=== PATIENT | female | born 1935 | race Caucasian/White ===

== ENCOUNTER 2024-09-07 14:14 | Inpatient (IN) | payer MEDICARE, MEDICAID, SELFPAY ==
--- NOTE | 2024-09-07 | ECG_ITS ---
Test Reason : qtc prolongation Blood Pressure : */* mmHG Vent. Rate : 80 BPM Atrial Rate : 80 BPM P-R Int : 144 ms QRS Dur : 88 ms QT Int : 412 ms P-R-T Axes : 45 27 28 degrees QTcB Int : 475 ms Normal sinus rhythm Normal ECG No previous ECGs available Referred By: Joana Strickland Electronically Signed By: LISA WOODY MD
[2024-09-07 14:46] VITALS: BP 177/77; PULSE 89; RESP 20; TEMP 36.2; O2SAT 95
--- OUTSIDE RECORDS SUMMARY | 2024-09-07 15:35 | XMS_ITS | Patient Health Record ---
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 Name Role Phone KASSIEVETTE ORR Primary Care Provider Naresh Gerber Jr Unavailable [phone] ALLERGIES Allergen (clinical drug ingredient) Drug/Non Drug Allergy documented on EMR Reaction Allergy Type Onset Date Status losartan Losartan Potassium Unknown Drug Allergy Active sumatriptan Imitrex (uncoded) Unknown Allergy Active lactulose Lactulose (uncoded) Unknown Allergy Active Bee venom (uncoded) Unknown Allergy Active REASON FOR REFERRAL No Information MEDICATIONS Medication SIG (Take, Route, Frequency, Duration) Notes Start Date End Date Status Zocor Active SEROquel Active Bengay Moist Heat Therapy Reg Active APAP Active Vitamin D3 Active LORazepam Active Toprol XL Active Tylenol Active Myrbetriq Active rOPINIRole HCl Activ e Depakote Active Artificial Tear Acti ve Lisinopril Active Gabapentin Active Amitriptyline HCl Ac tive oxyBUTYnin Active Colace Active IMMUNIZATIONS Vaccine Route Administration Date Status Comme nts Influenza Unknown 05/09/2020 Administered SOCIAL HISTORY Tobacco Use: Social History Observation Description Date Details (start date - stop date) Current Smoker NA - NA Sex Assigned At : Social History Observation Description Sex Assigned At Unknown Tobacco Use/Smoking Question Answer Notes Patient is a current smoker How often do you smoke cigarettes? every day How many cigarettes a day do you smoke? 6-10 How soon after you wake up do you smoke your fir st cigarette? within 5 minutes Are you interested in quitting? Not ready to scout t Alcohol Screen Question Answer Notes Did you have a drink containing alcohol in the p ast year? No Points 0 Interpretation Negative PROBLEMS Problem Type ICD Code Onset Dates Problem Status W/U Status Risk SNOMED Code Notes Problem Diarrhea, unspecified type (R19.7) Active confirmed [id number] PLAN OF TREATMENT No Information Insurance Providers Payer Name Payer Address Payer Phone Subscriber Number Group Number Insured Name Patient Relationship to Insured Coverage Start Date Coverage End Date MEDICARE OF [place] [address] [place] [address] [id number] VIVIAN MULTANI Self - patient is the insured MEDICAID OF [facility] [facility] [address] [place] [phone] [id number] VIVIAN MULTANI Self - patient is the insured MEDICAL (GENERAL) HISTORY Medical History History ICD Code hypertension bipolar disorder depression anxiety hx of substance abuse - opiates urinary tract infection cataracts restless leg syndrome breast cancer - Left Breast hearing loss urinary incontinence hx of migraine headaches hx of colon polyps constipation back pain - lower back dementia (the patient denies this and all other listed medical problems except hypertension and breast cancer) Surgical History Surgery Date(Month/Year) left mastectomy
--- NOTE | 2024-09-07 16:57 | PC.ADMIT ---
Addendum entered and electronically signed by Renee Bailey RN 09/07/24 17:58: Placed on 5min safety checks unlocked bathroom upon arrival to unit. Original Note: This is the 1st admission for this 89 y.o. woman to [facility]. Referred by ARCHITECTURAL INTERN Crisis with Dx Bipolar D/O with Psychosis, Hx Dx Dementia. Medical issues include: HTN, Hyperlipidemia, Hx hip repacement, Hx left mastectomy. Resides at [facility]. HCP invoked by daughter prior to admission. Nurse to nurse done with [facility]. Arrived on unit at 1430 via ambulance on Sect 12A, Section 12B signed by Dr Amin. Skin check done upon arrival to unit with 2 staff present. Confusion noted during interactions.Multiple negative statements made by pt towards staff/patients. Denies SI/HI, denies AH/VH. Uncooperative with admission assessment, asking this justowriter operator to answer same questions. Difficult to redirect. Uncooperative with standing/transfers, requiring assistance of 2 staff to transfer to wheelchair. Med list obtained from [facility] and [facility]. Admission orders received from Dr Amin. Additional orders will be reviewed with Dr Cruz. Daughter, Luna, who is HCP called to notify of admission. Daughter Luna in contact with daughter, Ce, during call. Luna reports pt smokes currently 5-6 cigarettes daily and had been smoking 10 cigarettes with good weather. Ce reports possible hx hallucinations/nightmares with use of nicotine patch. Both daughters would like low dose of nicotine patch started as they feel pt will withdraw and pt will become irritable. Irritability noted at present time. Dr Saez notified. Precipitating factors to admission: resident of [facility] since January 2024. Reportedly has intermittent mood disorder symptoms per children. Became paranoid,delusional at rehab and was checked for UTI which was negative. Depakote level was low at 14.2.
--- NOTE | 2024-09-07 17:15 | P.CONHOSP_ITS ---
History of Present Illness Data of Consult Service Date: 09/07/24 Primary Care Provider: None Physician HPI Reason for consult: Admission H&P Pt is an 89-year-old female with a PMH significant for?HTN, HLD, restless leg syndrome, nicotine dependence, and bipolar disorder with psychotic features who is admitted to [facility] for hallucinating and agitation per SNF staff. Medical consult for admission H&P. Pt appears confused, alert and oriented to self only at time of interview and exam. Pt?is difficult to redirect and does not answer most questions especially concerning HPI or PMH. Pt adamantly refuses physical examination, stating, get your hands off of me. 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 Review of Systems Review of Systems: Yes Unobtainable due to mental status [facility] Medical History (Updated 09/07/24 @ 17:58 by HANK Mortensen) Bipolar disorder with psychotic features Restless leg syndrome HDL deficiency HTN (hypertension) Social History Household Members: None Housing: Halfway Do you presently have visiting nurse or other home services: No Patient Tobacco Use Status: Former Tobacco user Tobacco use type: Cigarette Smoked in Last 30 Days: No e-Cigarette/Vaping Use: Never Used Patient Interested in Nicotine Replacement: No Patient Given Instructions on How to Stop Smoking: No Second Hand Smoke Exposure: No Use of substances other than those prescribed or required for medical reasons: No Currently Displaying Signs/Symptoms of Drug Intoxication Withdrawal: No Any prior treatment program specific to substance use: No (Residing in extended care facility prior) Do you feel safe in your current relationship?: No Current Relationship Is there a partner from a previous relationship who is making you feel unsafe now?: No Are you made to feel afraid or neglected: No Advance Directives: No Advance Directives Information Provided: Yes Do you have a plan to hurt others: No Plan Recently lost weight without trying: No Eating poorly because of decreased appetite: No Nutrition Risks: No Nutritional Risk Patient : No : No Poor oral hygiene: No Meds Allergies Allergy/AdvReac Type Severity Reaction Status Date / Time No Known Allergies Allergy Verified 09/07/24 15:15 Active Medications: Current Medications Acetaminophen (Acetaminophen 325 Mg Tablet) 650 mg PO Q6H PRN PRN Reason: Headache/Pain, Scale 1-10 Al Hydroxide/Mg Hydroxide (Magnesium Hydrox/Alum Hydrox 30 Ml Oral.Susp) 30 ml PO Q6H PRN PRN Reason: Heartburn/Nausea Magnesium Hydroxide (Milk Of Magnesia 30 Ml Oral.Susp) 30 ml PO DAILY PRN PRN Reason: Constipation Trazodone HCl (Trazodone Hcl 50 Mg Tablet) 50 mg PO BEDTIME MRX1 PRN PRN Reason: Insomnia Physical Exam Vital Signs and Narrative: Vital Signs: Last Vital Signs Temp 97.2 F 09/07/24 14:46 Pulse 89 09/07/24 14:46 Resp 20 09/07/24 14:46 BP 177/77 H 09/07/24 14:46 Pulse Ox 95 09/07/24 14:46 O2 Del Method Room Air 09/07/24 14:46 Pt refused physical examination Assessment and Plan (1) Medical clearance for psychiatric admission: Status: Acute Plan Pt is an 89-year-old female with a PMH significant for?HTN, HLD, restless leg syndrome, nicotine dependence, and bipolar disorder with psychotic features who is admitted to [facility] for hallucinating and agitation per SNF staff. Medical consult for admission H&P. Mood disorder Plan as per Psychiatry HTN Continue lisinopril, amlodipine, metoprolol, hydralazine and hydrochlorothiazide HLD Continue statin Restless leg syndrome Continue allopurinol, gabapentin Overactive bladder Continue oxybutynin Thank you for allowing us to participate in the care of this patient. Signing off at this time. Please re-consult if any acute complaints or issues arise.
[2024-09-07 20:10] LABS: Alanine Aminotransferase 32 U/L (0-31); Albumin Level 4.3 g/dL (3.5-5.0); Alkaline Phosphatase 84 U/L (39-117); Anion Gap 17 (12-20); Aspartate Amino Transferase 45 U/L (5-31); Bilirubin Total 0.3 mg/dL (0.0-1.0); Blood Urea Nitrogen 30 mg/dL (9-16); Calcium 9.6 mg/dL (8.4-10.2); Carbon Dioxide 22 mmol/L (22-29); Chloride 107 mmol/L (96-108); Estimated Glomerular Filt Rate 38; Glucose Random 169 mg/dL (60-115); Potassium 3.6 mmol/L (3.3-5.1); Sodium 142 mmol/L (135-145); Total Protein 7.9 g/dL (6.5-8.0)
[2024-09-07 20:18] VITALS: BMI 19.8
[2024-09-07 20:36] VITALS: BP 192/92
[2024-09-07] MEDS: hydrALAZINE HCl 25 MG TABLET PO (20:36)
[2024-09-07] MEDS: Amitriptyline HCl 10 MG TABLET 30 MG PO (20:36)
[2024-09-07] MEDS: Atorvastatin Calcium 10 MG TABLET PO (20:37)
[2024-09-07] MEDS: Gabapentin 100 MG CAPSULE 200 MG PO (20:37)
[2024-09-07] MEDS: LORazepam 0.5 MG TABLET PO (20:37)
[2024-09-07] MEDS: Acetaminophen 325 MG TABLET 975 MG PO (20:37)
[2024-09-07] MEDS: Divalproex Sodium 250 MG TABLET.DR PO (20:37)
[2024-09-07 20:55] VITALS: BP 192/92; PULSE 84; RESP 17; TEMP 37.1; O2SAT 97
[2024-09-07] MEDS: QUEtiapine Fumarate 200 MG TABLET PO (20:55)
[2024-09-08 08:00] VITALS: BP 147/66; PULSE 76; RESP 18; TEMP 36.2; O2SAT 94
--- NOTE | 2024-09-08 08:47 | P.HPPS_ITS ---
HPI Date of Service: 09/08/24 Chief Complaint: BIPOLAR 1 DISORDER, UNSPECIFIED ANXIETY DISORDER Sources of Information: patient interviewed, chart reviewed and crisis/core team assessment reviewed HPI Subjective Notes: [facility] Healthcare Proxy: Yes Past Psychiatric History: The patient carries a diagnosis of bipolar disorder with several prior admissions the patient is a very poor historian unable to provide details but apparently she has a lifelong history of mental illness. Medical Evaluation Reviewed: Yes [facility] Medical History Bipolar disorder with psychotic features Restless leg syndrome HDL deficiency HTN (hypertension) Family History: Denies Social History: The patient is a resident of [facility] with [facility] behavioral unit. Substance History: Denies Trauma History: Denies Diagnostics Vital Signs (24Hr): Vital Signs - 24 hr 09/07/24 14:46 09/07/24 20:36 09/07/24 20:55 Temperature 97.2 F 98.8 F Pulse Rate 89 84 Respiratory Rate 20 17 Blood Pressure 177/77 H 192/92 H 192/92 H Pulse Oximetry 95 97 Oxygen Delivery Method Room Air Room Air BMI result Body Mass Index 19.8 Labs 09/07/24 19:28 Labs: Laboratory Results - last 48 hr 09/07/24 19:28 Sodium 142 Potassium 3.6 Chloride 107 Carbon Dioxide 22 Anion Gap 17 BUN 30 H Creatinine 1.32 Estim Creat Clear Calc TNP Estimated GFR 38 Random Glucose 169 H Calcium 9.6 Total Bilirubin 0.3 AST 45 H ALT 32 H Alkaline Phosphatase 84 Total Protein 7.9 Albumin 4.3 Meds/Allergies Meds Home Medications ?Medication ?Instructions ?Recorded ?Confirmed ?Type cholecalciferol (vitamin D3) 5,000 units PO 1XD 09/07/24 09/07/24 History ropinirole 1 mg tablet 1 mg PO 1XD 09/07/24 09/07/24 History Allergies Allergies Allergy/AdvReac Type Severity Reaction Status Date / Time No Known Allergies Allergy Verified 09/07/24 15:15 Mental Status Exam Mental Status Exam Patient Appearance: Appropriate Patient Orientation: Person Level of Consciousness: Awake Patient Behavior: Guarded and Passive Mood Description: Withdrawn Affect Description: Labile Patient Cognition Impaired: Yes Ability to Follow Directions: Good Speech Pattern: Impoverished and Rapid Hallucinations: None Delusions: Ideas of Reference Thought Process: Racing and Illogical Thought Content: positive for [place], positive for Poverty of Content and positive for Thought Blocking Judgement: Poor Assessment & Plan Assessment & Plan (1) Bipolar disorder: Status: Acute Code(s): F31.9 - Bipolar disorder, unspecified (2) Dementia: Status: Acute Code(s): F03.90 - Unspecified dementia, unspecified severity, without behavioral disturbance, psychotic disturbance, mood disturbance, and anxiety Plan The patient is an elderly female with a past history of bipolar disorder who was brought to the emergency room of [facility] for worsening of psychosis and disorganized behavior. She was medically cleared and transferring to this facility for continuation of care. Plan 1. Gather more collateral information, the patient is a very poor historian. 2. 5 minute checks for the 1st 24 hours. 3. Continue on Seroquel 200 mg p.o. b.i.d. as a mood stabilizer/antipsychotic treatment. 4. Regular blood work and follow-up with Medicine. 5. Reassessment with results Patient educated on: diagnosis Informed Consent: further education needed Reason for continued inpatient stay Substantial Risk for: inability to function, rapid decompensation and med/psych decompensation Statement Statement: I have reviewed the history and physical and performed a pertinent examination on my patient. No changes have occurred unless specified. If the History and Physical was not performed prior to admission, the Hospitalist's service will be consulted for completing the admission physical. Time Spent With Patient Time: Total time managing care of this patient today __45__ minutes.
[2024-09-08] MEDS: Artificial Tears 15 ML DROPS 1 DROP EYE-BOTH (08:54)
[2024-09-08 08:58] VITALS: BP 147/66; PULSE 76
[2024-09-08] MEDS: Gabapentin 100 MG CAPSULE 200 MG PO (08:58)
[2024-09-08] MEDS: Cholecalciferol (Vitamin D3) 25 MCG TABLET 125 MCG PO (08:58)
[2024-09-08] MEDS: QUEtiapine Fumarate 200 MG TABLET PO (08:58)
[2024-09-08] MEDS: Metoprolol Succinate ER 100 MG TAB.ER.24H 200 MG PO (08:58)
[2024-09-08] MEDS: Acetaminophen 325 MG TABLET 975 MG PO (08:58)
[2024-09-08] MEDS: rOPINIRole HCL 1 MG TABLET PO (08:58)
[2024-09-08] MEDS: Docusate Sodium 100 MG CAPSULE PO (08:59)
[2024-09-08] MEDS: Lactase TABLET 2 TAB PO (08:59)
[2024-09-08 09:00] VITALS: BP 147/66
[2024-09-08] MEDS: hydroCHLOROthiazide 12.5 MG TABLET PO (09:00)
[2024-09-08] MEDS: lisinopriL 40 MG TABLET PO (09:00)
[2024-09-08] MEDS: LORazepam 0.5 MG TABLET PO (09:00)
[2024-09-08] MEDS: oxyBUTYnin chloride ER 5 MG TAB.ER.24 10 MG PO (09:00)
[2024-09-08 09:01] VITALS: BP 147/66
[2024-09-08] MEDS: hydrALAZINE HCl 25 MG TABLET PO (09:01)
[2024-09-08] MEDS: amLODIPine Besylate 10 MG TABLET PO (09:01)
[2024-09-08] MEDS: Nicotine 7 MG PATCH.TD24 TRANSDERMA (09:05)
[2024-09-08 10:13] LABS: Estimated Average Glucose 105 mg/dL; Hemoglobin A1C 106.5863 umol/L; Hemoglobin A1c % 5.3 % (<6.0); Total Hemoglobin (HGBA1C) 3073.9921 umol/L
[2024-09-08 10:44] LABS: Vitamin B12 192 pg/mL (200-900)
[2024-09-08 10:52] LABS: Glucose, Whole Blood 119 mg/dL (60-115)
--- NOTE | 2024-09-08 12:10 | PC.NURSE ---
At 8AM pt was alert, oriented to self. BP 147/66, P 76, T 97.2, O2sat 94% on RA. No SOB or respiratory distress noted. Pt was compliant with am meds. About 10:30 am pt was in her w/c in a milieu, responsive to verbal stimuli. Eyes closed, drowsy. Shortly after pt was intermittently responsive, then not responsive to verbal stimuli or chest rub. Rapid Response was called, BP re-check for BP 49/29, P 55. BS 119. After work up by Rapid response pt was transferred to the ICU.
--- NOTE | 2024-09-08 12:12 | PM.PSYDC ---
DS: Providers Provider Date of Service: 09/08/24 Date of admission: 09/07/24 14:14 Date of discharge: 09/08/24 Primary care physician: None Physician Consults: 09/07/24 15:16 Consult to Hospitalist Routine Comment: Consulting Provider: [facility] Hospitalists Reason For Exam: medical H&P DS: Diagnosis Discharge Diagnosis (1) Medical clearance for psychiatric admission: Status: Acute DS: Medications Discharge Medications Home Medications: Home Medications ?Medication ?Instructions ?Recorded ?Confirmed cholecalciferol (vitamin D3) 5,000 units PO 1XD 09/07/24 09/07/24 ropinirole 1 mg tablet 1 mg PO 1XD 09/07/24 09/07/24 Previous Rx's ?Medication ?Instructions ?Recorded atorvastatin 10 mg tablet 10 mg PO BEDTIME #0 tabs 09/08/24 gabapentin 100 mg capsule 200 mg (2 x 100 mg) PO TID #0 caps 09/08/24 peg [id number] 1 1 drp ophthalmic (eye) TID #0 mL 09/08/24 %-0.2 %-0.2 % eye drops (Artificial Tears ([id number])) Mental Status Exam Mental Status Exam Narrative: The patient had been sober us, unresponsive a code was called and she was transferred to the ICU right away. Mental status unable to assess due to acute the emergency [place] Data Data Completed and Pending Completed studies during hospitalization [Text1]: 09/07/24 09/08/24 09/08/24 19:28 09:43 10:48 Sodium 142 Potassium 3.6 Chloride 107 Carbon Dioxide 22 Anion Gap 17 BUN 30 H Creatinine 1.32 Estim Creat Clear Calc TNP Estimated GFR 38 POC Glucose 119 H Random Glucose 169 H Estimat Average Glucose 105 Hemoglobin A1c % 5.3 Calcium 9.6 Total Bilirubin 0.3 AST 45 H ALT 32 H Alkaline Phosphatase 84 Total Protein 7.9 Albumin 4.3 Vitamin B12 192 L DS: Summary Hospital Course Hospital Course: The patient was admitted the day before, in less than 24 hours her condition worsen it and a code was called, she was transferred to the ICU. Please see the HPI of the admission of medicine for further details. Time spent discussing smoking cessation with patient: 3 to 10 minutes Status at Discharge Cognitive/behavioral status at discharge: Impaired Functional status at discharge: independent ambulation Overall status at discharge: patient is not back to baseline Time Spent with Patient Time attestation: Total time managing care of this patient today __30__ minutes. Time spent: Less than 30 minutes Discharge Plan Discharge Anticipated Discharge Date/Time: 09/08/24 12:00 Patient Disposition: Xfer [facility] Discharge Diagnosis: Major neurocognitive Disorder Bipolar disorder Referrals: Physician,None [Primary Care Provider] - 1 Week Discharge Medications: New atorvastatin 10 mg Tablet 10 mg PO BEDTIME Qty: 0 0RF gabapentin 100 mg Capsule 200 mg PO TID Qty: 0 0RF Artificial Tears([id number]) 1-0.2-0.2 % Drops 1 drp ophthalmic (eye) TID Qty: 0 0RF Continued ropinirole 1 mg tablet 1 mg PO 1XD cholecalciferol (vitamin D3) capsule 5,000 units PO 1XD Discontinued divalproex 250 mg tablet,delayed release (DR/EC) 250 mg PO BEDTIME hydralazine 25 mg tablet 25 mg PO 3XD amitriptyline 10 mg tablet 30 mg PO BEDTIME amlodipine 10 mg tablet 10 mg PO DAILY oxybutynin chloride 10 mg tablet extended release 24hr 10 mg PO DAILY metoprolol succinate 200 mg tablet extended release 24 hr 200 mg PO 1XD quetiapine 200 mg tablet 200 mg PO 2XD lorazepam 0.5 mg tablet 0.5 mg PO TID lactase 9,000 unit Tablet 9,000 unit PO TID Rx Instructions: administer with meals and/or snacks simvastatin 20 mg tablet 20 mg PO BEDTIME hydrochlorothiazide 25 mg tablet 12.5 mg PO 1XD gabapentin 100 mg capsule 200 mg PO TID lisinopril 40 mg tablet 40 mg PO DAILY Artificial Tears (cmc) 1 % Drops 1 drp OPHTHALMIC (EYE) TID Colace capsule 100 mg PO 1XD Tylenol tablet 1,000 mg PO TID Discharge Orders: Discharge Order (Routine); Ordered 09/08/24 Ordered By: Joana Strickland Diet: Advance to usual diet Activity on Discharge: As tolerated Stand Alone Forms: Patient Portal Discharge page Print Language: Czech Care Plan Goals: transfer to ICU Health Concerns: transfer to ICU Plan of Treatment: transfer to ICU Assessment: transfer to ICU
== END 2024-09-08 10:50 | disposition short-term general hospital (02) | DRG 885 ==
PROVIDERS: Social Worker; Admitting Provider Psychiatry & Neurology Psychiatry; Visit Provider Psychiatry & Neurology Psychiatry
DX: F31.9 Bipolar disorder, unspecified (principal); G25.81 Restless legs syndrome; I10 Essential (primary) hypertension; E78.5 Hyperlipidemia, unspecified; N32.81 Overactive bladder; F03.90 Unspecified dementia, unspecified severity, without behavioral disturbance, psychotic disturbance, mood disturbance, and anxiety; F17.210 Nicotine dependence, cigarettes, uncomplicated; Z71.6 Tobacco abuse counseling; Z79.899 Other long term (current) drug therapy
CPT/HCPCS: 36415; 80053; 82607; 82947; 83036; 93005

== ENCOUNTER 2024-09-07 14:14 | Outpatient (BNV) | payer MEDICARE, MEDICAID, SELFPAY | END 2024-09-07 20:07 | PROVIDERS: Admitting Provider Psychiatry & Neurology Psychiatry; Visit Provider Internal Medicine Cardiovascular Disease | DX: I45.81 Long QT syndrome (principal) | CPT/HCPCS: 93010 ==

== ENCOUNTER → 2024-09-07 14:14 | Outpatient (BNV) | payer MEDICARE, MEDICAID, SELFPAY | PROVIDERS: Admitting Provider Psychiatry & Neurology Psychiatry; Visit Provider Psychiatry & Neurology Psychiatry | DX: F31.9 Bipolar disorder, unspecified (principal); F03.90 Unspecified dementia, unspecified severity, without behavioral disturbance, psychotic disturbance, mood disturbance, and anxiety | CPT/HCPCS: 99239; 99499 ==

== ENCOUNTER → 2024-09-07 14:14 | Outpatient (BNV) | payer MEDICARE, MEDICAID, SELFPAY | PROVIDERS: Admitting Provider Psychiatry & Neurology Psychiatry; Visit Provider Student in an Organized Health Care Education/Training Program | DX: Z00.8 Encounter for other general examination (principal) | CPT/HCPCS: 99429 ==

== ENCOUNTER 2024-09-08 12:52 | Outpatient (BNV) | payer MEDICARE, MEDICAID, SELFPAY | END 2024-09-08 13:28 | PROVIDERS: Admitting Provider Internal Medicine Critical Care Medicine; Visit Provider Internal Medicine Cardiovascular Disease | DX: R94.31 Abnormal electrocardiogram [ECG] [EKG] (principal); R07.9 Chest pain, unspecified | CPT/HCPCS: 93010 ==

== ENCOUNTER 2024-09-08 12:52 | Outpatient (BNV) | payer MEDICARE, MEDICAID, SELFPAY | END 2024-09-09 10:34 | PROVIDERS: Admitting Provider Internal Medicine Critical Care Medicine; Visit Provider Internal Medicine Cardiovascular Disease | DX: I49.9 Cardiac arrhythmia, unspecified (principal) | CPT/HCPCS: 93010 ==

== ENCOUNTER 2024-09-08 12:52 | Outpatient (BNV) | payer MEDICARE, MEDICAID, SELFPAY | END 2024-09-08 17:23 | PROVIDERS: Admitting Provider Internal Medicine Critical Care Medicine; Visit Provider Radiology Vascular & Interventional Radiology | DX: J96.00 Acute respiratory failure, unspecified whether with hypoxia or hypercapnia (principal) | CPT/HCPCS: 93970 ==

== ENCOUNTER 2024-09-08 12:52 | Outpatient (BNV) | payer MEDICARE, MEDICAID, SELFPAY | END 2024-09-09 17:30 | PROVIDERS: Admitting Provider Internal Medicine Critical Care Medicine; Visit Provider Radiology Diagnostic Radiology | DX: R55 Syncope and collapse (principal) | CPT/HCPCS: 71045 ==

== ENCOUNTER 2024-09-08 12:52 | Inpatient (IN) | payer MEDICARE, MEDICAID, SELFPAY ==
[2024-09-08] VITALS (12 sets, daily range): BP systolic 103–167; BP diastolic 53–90; PULSE 62–88; RESP 12–20; TEMP 36.1–37; O2SAT 95–97; BMI 20.6
--- NOTE | 2024-09-08 | ECG_ITS ---
Test Reason : chest pain Blood Pressure : */* mmHG Vent. Rate : 76 BPM Atrial Rate : 76 BPM P-R Int : 146 ms QRS Dur : 88 ms QT Int : 444 ms P-R-T Axes : 61 31 28 degrees QTcB Int : 499 ms Normal sinus rhythm Prolonged QT Abnormal ECG When compared with ECG of 08-Sep-2024 13:28, T wave amplitude has increased in Anterior leads Referred By: Eulalio Angel Electronically Signed By: LISA WOODY MD
--- NOTE | 2024-09-08 | ECG_ITS ---
Test Reason : code rosibel Blood Pressure : */* mmHG Vent. Rate : 73 BPM Atrial Rate : 73 BPM P-R Int : 164 ms QRS Dur : 88 ms QT Int : 468 ms P-R-T Axes : 56 26 10 degrees QTcB Int : 515 ms Normal sinus rhythm Prolonged QT Abnormal ECG When compared with ECG of 07-Sep-2024 20:07, No significant change was found Referred By: Clark Aguilera Electronically Signed By: LISA WOODY MD
--- NOTE | ~2024-09-08 | XR_ITS ---
CLINICAL HISTORY: had cpr ?fracture 1 view chest x-ray Comparison: None Findings: No consolidation or effusion. Normal size heart. No acute fracture. IMPRESSION: 1. No acute findings. This document has been electronically signed by: Bruce Bowie MD on 09/09/2024 19:39:22
--- NOTE | ~2024-09-08 | US_ITS ---
CLINICAL HISTORY: rule out DVT Venous duplex ultrasound bilateral lower extremity Comparison: None Findings: The visualized deep veins are fully compressible with normal Doppler color flow and spectral tracings. No popliteal cyst. IMPRESSION: 1. Negative for bilateral lower extremity deep vein thrombosis. This document has been electronically signed by: Edgardo Alonso MD on 09/08/2024 17:53:56
[2024-09-08] MEDS: 0.9 % Sodium Chloride 1,000 ML 999 ML IV ×2 (12:06)
--- OUTSIDE RECORDS SUMMARY | 2024-09-08 13:00 | XMS_ITS | Patient Health Record ---
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 Phone KASSIEVETTE ORR Primary Care Provider Naresh Gerber Jr Unavailable [phone] ALLERGIES Allergen (clinical drug ingredient) Drug/Non Drug [...] Problem Diarrhea, unspecified type (R19.7) Active confirmed [id number] PLAN OF TREATMENT No Information Insurance Providers Payer Name Payer Address Payer Phone Subscriber Number Group Number Insured Name Patient Relationship to Insured Coverage Start Date Coverage End Date MEDICARE OF [place] [address] [place] [id number] [phone] [id number] VIVIAN MULTANI Self - patient is the insured MEDICAID OF [facility] [employer] [facility] [address] [place] [address] [id number] VIVIAN MULTANI Self - patient is the [...]
[2024-09-08] MEDS: Enoxaparin Sodium 30 MG/0.3 ML SYRINGE SUBCUT (13:19)
[2024-09-08] MEDS: Famotidine/PF 20 MG/2 ML VIAL IVPUSH ×2 (13:19→20:22)
[2024-09-08] MEDS: Lactated Ringers 1,000 ML 100 ML IVCONT (13:19)
[2024-09-08 13:29] LABS: MANUAL DIFF FLAG NO
[2024-09-08 13:37] LABS: Basophils Percent Auto 0.4 % (0-2); Eosinophils Absolute Auto 0.1 X10*3/uL (0.0-0.4); Eosinophils Percent Auto 0.7 % (0-4); Hemoglobin 10.3 g/dl (12.0-16.0); Imm Gran Abs Auto 0.05 X10*3/uL (0.00-0.03); Imm Gran Pct Auto 0.5 % (0.0-0.4); Lymphocytes Percent Auto 9.7 % (20-40); Mean Corpuscular HGB Conc 33.2 g/dl (31.0-35.0); Mean Corpuscular Hemoglobin 33.6 pg (27.0-33.0); Mean Platelet Volume 9.9 fL (9.4-12.3); Monocytes Percent Auto 9.9 % (2-11); Neutrophils Percent Auto 78.8 % (45-73); Platelet Count 179 X10*3/uL (160-400); Red Blood Count 3.07 X10*6/uL (4.20-5.50); Red Cell Distribution Width 12.5 % (11.0-16.0); White Blood Count 10.2 X10*3/uL (4.8-10.8)
[2024-09-08 13:53] LABS: D Dimer High Sensitivity 1543 NG/ML
--- NOTE | 2024-09-08 13:59 | PC.NURSE ---
Patient admitted to ICU from inpatient psych post code blue at 1121 - see separate code blue documentation. 1124 BP 78/39 MAP 49 - DR Aguilera @ bedside - VO Dr Aguilera 1l NS bolus 1201 - NS bolus complete - repeat BP 97/48 MAP 59 - Dr Aguilera notified - VO Dr Aguilera second 1L NS bolus 1300 BP 103/53 MAP 69 - LR @ 100cc/hr ordered and administering per SEP. Family at bedside - updated by this RN and
[2024-09-08 14:08] LABS: Alanine Aminotransferase 22 U/L (0-31); Albumin Level 3.4 g/dL (3.5-5.0); Alkaline Phosphatase 68 U/L (39-117); Anion Gap 13 (12-20); Aspartate Amino Transferase 42 U/L (5-31); Bilirubin Total 0.3 mg/dL (0.0-1.0); Blood Urea Nitrogen 30 mg/dL (9-16); Calcium 8.7 mg/dL (8.4-10.2); Carbon Dioxide 20 mmol/L (22-29); Chloride 112 mmol/L (96-108); Cholesterol 125 mg/dL (<200); Estimated Glomerular Filt Rate 50; Glucose Random 93 mg/dL (60-115); HDL Cholesterol 45 mg/dL (>40); LDL Cholesterol Calculated 62 mg/dL (<100); Magnesium 1.9 mg/dL (1.6-2.6); Phosphorus 3.7 mg/dL (2.7-4.5); Potassium 3.4 mmol/L (3.3-5.1); Sodium 142 mmol/L (135-145); Triglycerides 90 mg/dL (<150)
--- NOTE | 2024-09-08 14:11 | P.HPCC_ITS ---
History of Present Illness Date of Service: 09/08/24 Chief Complaint: Unresponsiveness 89-year-old lady with past medical history of dementia, hypertension, hyperlipidemia, bipolar disorder was [facility] from [facility] due to behavioral issues. Her initial labs and vitals were stable. This morning patient had a large bowel movement following which she possibly had a vasovagal syncope and was found unresponsive. A rapid response ambulator code was called in, not very sure if she lost the pulse but chest compressions were done for about 2-3 minutes. Patient is alert after that. Review of Systems 2 Review of Systems: Unable to obtain due to confusion [facility] Past Medical History Medical History (Updated 09/08/24 @ 12:16 by Wil Amin MD) Bipolar disorder with psychotic features Restless leg syndrome HDL deficiency HTN (hypertension) Surgical History Surgical History (Updated 09/08/24 @ 13:52 by Helen Thrasher RN) H/O left mastectomy Social History Social History (Updated 09/07/24 @ 18:29 by Renee Bailey RN) Household Members: None Housing: [facility] Housing Other:: [facility] Do you presently have visiting nurse or other home services: No Patient Tobacco Use Status: Current everyday Tobacco user Tobacco use type: Cigarette Cigarettes Per Day: 9 Years Smoked: 71 Smoked in Last 30 Days: Yes e-Cigarette/Vaping Use: Never Used Patient Interested in Nicotine Replacement: No Patient Given Instructions on How to Stop Smoking: No Second Hand Smoke Exposure: Yes Use of substances other than those prescribed or required for medical reasons: No Have you been hit, kicked, punched, or otherwise hurt by someone within the past year? If so, by whom?: No Do you feel safe in your current relationship?: No Current Relationship Is there a partner from a previous relationship who is making you feel unsafe now?: No Are you made to feel afraid or neglected: No Spiritual Healthcare Practices: none per family Anabaptism Healthcare Practices: none per family Cultural Healthcare Practices: none per patient Advance Directives: No Advance Directives Information Provided: No Advance Directives on File: No Do you have a plan to hurt others: No Plan Recently lost weight without trying: No Eating poorly because of decreased appetite: No Nutrition Risks: Difficulty chewing Patient : No : No Poor oral hygiene: Yes Meds Allergies Allergy/AdvReac Type Severity Reaction Status Date / Time No Known Allergies Allergy Verified 09/07/24 15:15 Active Medications: Current Medications Enoxaparin Sodium (Enoxaparin Sodium 30 Mg/0.3 Ml Syringe) 30 mg SUBCUT Q24H [facility] Last Admin: 09/08/24 13:19 Dose: 30 mg Famotidine (Famotidine/Pf 20 Mg/2 Ml Vial) 20 mg IVPUSH BID [facility] Last Admin: 09/08/24 13:19 Dose: 20 mg Lactated Ringer's (Lr) 1,000 mls @ 100 mls/hr IVCONT .Q10H [facility] Last Admin: 09/08/24 13:19 Dose: 100 mls/hr Home Medications ?Medication ?Instructions ?Recorded ?Confirmed ?Last Taken ?Type cholecalciferol (vitamin D3) 5,000 units PO 1XD 09/07/24 09/07/24 Unknown History ropinirole 1 mg tablet 1 mg PO 1XD 09/07/24 09/07/24 Unknown History Physical Exam 2 Vital Signs: Vital Signs: Last Vital Signs Temp 97.3 F 09/08/24 13:00 Pulse 79 09/08/24 13:00 Resp 16 09/08/24 13:00 BP 103/53 L 09/08/24 13:00 Pulse Ox 95 09/08/24 13:00 O2 Del Method Room Air 09/08/24 13:00 General: Elderly lady not in acute distress, sitting in the bed Nutritional Appearance: well nourished and overweight Eyes: appearance normal, both eyes and all related structures; Alignment and Position: alignment normal and position normal Neck: No lymphadenopathy, no thyromegaly Resp: bilateral air entry equal, occasional added sounds present Cardio: Regular rate, regular rhythm; Heart sounds: S1 normal heart sound present and S2 normal heart sound present GI: soft, nontender, no guarding, no hepatosplenomegaly : bladder normal to inspection, bladder normal to palpation, no renal angle tenderness Skin: no rashes or lesions noted and elasticity normal Neuro: Some confusion present but alert, no focal deficits and moves all extremities Results Labs 09/08/24 13:22 09/08/24 13:22 Labs: Laboratory Results - last 24 hr 09/08/24 09/08/24 13:22 13:33 MCV 101.0 H MCH 33.6 H MCHC 33.2 RDW 12.5 Plt Count 179 MPV 9.9 Immature Gran % (Auto) 0.5 H Neut % (Auto) 78.8 H Lymph % (Auto) 9.7 L [place] % (Auto) 9.9 Eos % (Auto) 0.7 Baso % (Auto) 0.4 Lymph # (Auto) 1.0 L [place] # (Auto) 1.0 Eos # (Auto) 0.1 Baso # (Auto) 0.0 Abs Immat Gran (auto) 0.05 H Absolute Neuts (auto) 8.0 Absolute Nucleated RBC 0.000 Nucleated RBC % (auto) 0.0 Hold Purple Top SEE NOTE D-Dimer High Sensitivty 1543 Hold Blue Top SEE NOTE Anion Gap 13 Estim Creat Clear Calc TNP Estimated GFR 50 Random Glucose 93 Calcium 8.7 D Phosphorus 3.7 Magnesium 1.9 Total Bilirubin 0.3 AST 42 H ALT 22 Alkaline Phosphatase 68 Total Protein 6.0 L Albumin 3.4 L Triglycerides 90 Cholesterol 125 LDL Cholesterol, Calc 62 HDL Cholesterol 45 Assessment and Plan (1) Bipolar disorder: Status: Acute (2) Dementia: Status: Acute (3) Medical clearance for psychiatric admission: Status: Acute Plan Syncope: Patient possibly had an episode of vasovagal syncope following a large bowel movement leading to hypo tension and unresponsiveness that improved within 3-5 minutes. Blood pressures promptly improved after normal saline bolus. However we would like to rule out other etiologies by sending labs, blood cultures and lactate. Patient was found down, code blue was called and chest compressions were done for about 3 minutes before ROSC was achieved. No concern for infection or sepsis at this point. Hypertension: Withhold antihypertensives due to episode of hypotension Bipolar disorder: We will consult psych to continue medications QTC 515, we will be careful about antipsychotics Total time managing care of this patient today: 35 minutes.
[2024-09-08 14:20] LABS: Troponin-I High Sensitivity 500.2 ng/L (<3.5-17.0)
[2024-09-08 14:22] LABS: Thyroid Stimulating Hormone 0.56 uIU/mL (0.32-4.0)
--- NOTE | 2024-09-08 14:46 | PHA.MEDREC ---
Pharmacy Consult ? Medication Reconciliation Pharmacy has completed the medication reconciliation. Utilized list from [facility].
[2024-09-08 15:24] LABS: Lactic Acid 0.8 mmol/L (0.5-2.0)
[2024-09-08 15:44] LABS: Troponin-I High Sensitivity 606.9 ng/L (<3.5-17.0)
--- NOTE | 2024-09-08 16:02 | HO.HSGERICON ---
History of Present Illness Data of Consult Service Date: 09/08/24 Primary Care Provider: Unknown Physician HPI Reason for consult: Follow-up from psychiatrist since the patient was transferred from [facility] The patient is an 89-year-old female with a past history of bipolar disorder referred from the longterm facility for exacerbation of psychosis and adam. On admission, the patient was grossly manic but later on less than 24 hours of admission, the patient became unresponsive a blue coat was ordered and she was transferred to the ICU since she was hypotensive. On interview, the patient was awake alert, demanding with fast speech with signed and symptoms typically of adam very demanding. She stated that she was downstairs and she wants to go back to [facility] unit. No changes in her mental status compared to the admission. We will continue to monitor her medical status and when medically cleared transferred back. Review of Systems Review of Systems: Yes all other systems are reviewed and are negative [facility] Medical History (Updated 09/08/24 @ 12:16 by Wil Amin MD) Bipolar disorder with psychotic features Restless leg syndrome HDL deficiency HTN (hypertension) Surgical History (Updated 09/08/24 @ 13:52 by Helen Thrasher RN) H/O left mastectomy Social History (Updated 09/07/24 @ 18:29 by Renee Bailey RN) Household Members: None Housing: Long-Term Housing Other:: [facility] Do you presently have visiting nurse or other home services: No Patient Tobacco Use Status: Current everyday Tobacco user Tobacco use type: Cigarette Cigarettes Per Day: 9 Years Smoked: 71 Smoked in Last 30 Days: Yes e-Cigarette/Vaping Use: Never Used Patient Interested in Nicotine Replacement: No Patient Given Instructions on How to Stop Smoking: No Second Hand Smoke Exposure: Yes Use of substances other than those prescribed or required for medical reasons: No Have you been hit, kicked, punched, or otherwise hurt by someone within the past year? If so, by whom?: No Do you feel safe in your current relationship?: No Current Relationship Is there a partner from a previous relationship who is making you feel unsafe now?: No Are you made to feel afraid or neglected: No Spiritual Healthcare Practices: none per family Jain Healthcare Practices: none per family Cultural Healthcare Practices: none per patient Advance Directives: No Advance Directives Information Provided: No Advance Directives on File: No Do you have a plan to hurt others: No Plan Recently lost weight without trying: No Eating poorly because of decreased appetite: No Nutrition Risks: Difficulty chewing Patient : No : No Poor oral hygiene: Yes Meds Allergies Allergy/AdvReac Type Severity Reaction Status Date / Time No Known Allergies Allergy Verified 09/07/24 15:15 Active Medications: Current Medications Enoxaparin Sodium (Enoxaparin Sodium 30 Mg/0.3 Ml Syringe) 30 mg SUBCUT Q24H [facility] Last Admin: 09/08/24 13:19 Dose: 30 mg Famotidine (Famotidine/Pf 20 Mg/2 Ml Vial) 20 mg IVPUSH BID [facility] Last Admin: 09/08/24 13:19 Dose: 20 mg Lactated Ringer's (Lr) 1,000 mls @ 100 mls/hr IVCONT .Q10H [facility] Last Admin: 09/08/24 13:19 Dose: 100 mls/hr Home Medications ?Medication ?Instructions ?Recorded ?Confirmed ?Last Taken ?Type acetaminophen 500 mg tablet 1,000 mg PO TID 09/08/24 09/08/24 Unknown History amitriptyline 10 mg tablet 30 mg PO BEDTIME 09/08/24 09/08/24 Unknown History amlodipine 10 mg tablet 10 mg PO DAILY 09/08/24 09/08/24 Unknown History benzocaine 10 % mucosal gel 1 appl mucous membrane BEDTIME PRN 09/08/24 09/08/24 Unknown History Mouth Pain bisacodyl 10 mg rectal suppository 10 mg OR DAILY PRN Constipation 09/08/24 09/08/24 Unknown History cholecalciferol (vitamin D3) 125 125 mcg PO DAILY 09/08/24 09/08/24 Unknown History mcg (5,000 unit) tablet (Vitamin D3) divalproex 250 mg tablet,delayed 250 mg PO BEDTIME 09/08/24 09/08/24 Unknown History release docusate sodium 50 mg capsule 100 mg PO DAILY PRN Constipation 09/08/24 09/08/24 Unknown History hydralazine 25 mg tablet 25 mg PO TID 09/08/24 09/08/24 Unknown History hydrochlorothiazide 12.5 mg capsule 12.5 mg PO DAILY 09/08/24 09/08/24 Unknown History lactase 3,000 unit tablet (Lactaid) 3,000 unit PO TIDAC 09/08/24 09/08/24 Unknown History lisinopril 40 mg tablet 40 mg PO DAILY 09/08/24 09/08/24 Unknown History loperamide 2 mg tablet 2 mg PO Q6H PRN Diarrhea 09/08/24 09/08/24 Unknown History lorazepam 0.5 mg tablet 0.5 mg PO TID ANXIETY 09/08/24 09/08/24 Unknown History magnesium hydroxide 400 mg/5 mL 30 ml PO DAILY PRN Constipation 09/08/24 09/08/24 Unknown History oral suspension melatonin 1 mg tablet 1 mg PO BEDTIME PRN Insomnia 09/08/24 09/08/24 Unknown History metoprolol succinate 200 mg 200 mg PO DAILY 09/08/24 09/08/24 Unknown History tablet,extended release 24 hr oxybutynin chloride 10 mg 10 mg PO DAILY 09/08/24 09/08/24 Unknown History tablet,extended release 24 hr polyvinyl alcohol 1.4 % eye drops 1 drp ophthalmic (eye) TID 09/08/24 09/08/24 Unknown History quetiapine 200 mg tablet (Seroquel) 200 mg PO BID 09/08/24 09/08/24 Unknown History ropinirole 1 mg tablet 1 mg PO DAILY 09/08/24 09/08/24 Unknown History simvastatin 20 mg tablet 20 mg PO BEDTIME 09/08/24 09/08/24 Unknown History sodium phosphates 19 gram-7 118 ml OR DAILY PRN Constipation 09/08/24 09/08/24 Unknown History gram/118 mL enema (Fleet Enema) Results Labs 09/08/24 13:22 09/08/24 13:22 Labs: Laboratory Results - last 24 hr 09/08/24 09/08/24 09/08/24 13:22 13:33 14:33 MCV 101.0 H MCH 33.6 H MCHC 33.2 RDW 12.5 Plt Count 179 MPV 9.9 Immature Gran % (Auto) 0.5 H Neut % (Auto) 78.8 H Lymph % (Auto) 9.7 L [place] % (Auto) 9.9 Eos % (Auto) 0.7 Baso % (Auto) 0.4 Lymph # (Auto) 1.0 L [place] # (Auto) 1.0 Eos # (Auto) 0.1 Baso # (Auto) 0.0 Abs Immat Gran (auto) 0.05 H Absolute Neuts (auto) 8.0 Absolute Nucleated RBC 0.000 Nucleated RBC % (auto) 0.0 Hold Purple Top SEE NOTE D-Dimer High Sensitivty 1543 Hold Blue Top SEE NOTE Anion Gap 13 Estim Creat Clear Calc TNP Estimated GFR 50 Random Glucose 93 Lactic Acid 0.8 Calcium 8.7 D Phosphorus 3.7 Magnesium 1.9 Total Bilirubin 0.3 AST 42 H ALT 22 Alkaline Phosphatase 68 Total Protein 6.0 L Albumin 3.4 L Triglycerides 90 Cholesterol 125 LDL Cholesterol, Calc 62 HDL Cholesterol 45 TSH 0.56 Assessment and Plan (1) Bipolar disorder: Status: Acute (2) Dementia: Status: Acute Plan The patient is an elderly female with a past history of bipolar and dementia who was brought into this facility for decompensation with psychosis and adam. While she was in the unit and [facility], she became hypotensive, unresponsive and a blue coat was called and transferred to ICU for follow-up. On the intake interview on [facility] she was having signs and symptoms of adam and today she showed similar presentation. Vital signs within normal limits. Plan 1. Continue with Seroquel 200 mg p.o. b.i.d. as prescribed as a mood stabilizer/antipsychotic treatment. 2. Ativan 2 mg p.o. q.4 hours p.r.n. agitation,/anxiety. 3. When medically cleared the patient should be transferred back to [facility]. Total time managing care of this patient today: 30 minutes. Physical Exam Vital Signs: Last Vital Signs Temp 97.3 F 09/08/24 13:00 Pulse 70 09/08/24 15:00 Resp 17 09/08/24 15:00 BP 126/73 09/08/24 15:00 Pulse Ox 96 09/08/24 15:00 O2 Del Method Room Air 09/08/24 15:00 Neuro Cranial nerves: Yes CN's II-XII intact bilaterally Psych Appearance: disheveled Speech and movement: Pressured speech present Affect: Elated affect present Attitude: Belligerent attititude/behavior present Thought process: Flight of ideas present Thought content: Ideas of reference present (thought content) Insight: Poor insight present (Psych) Judgement: Poor judgement present (Psych)
--- NOTE | 2024-09-08 16:24 | PM.EVENT ---
Event Note Date of Service: 09/08/24 Event Note: 89yo F c ?HTN, HLD, restless leg syndrome, nicotine dependence, and bipolar disorder with psychotic features who is admitted to [facility] for hallucinating and agitation [facility] called for PT unresponsiveness, BP 49/29 in context of very large BM in dining room. Arrived to find pt with agonal respirations, thready pulse that was subsequently lost. Asked for code status and was told she was full code. Immediately started chest compressions while IV access was obtained and once it was, given 1 mg epinephrine followed by 1L NS with ROSC after 2 minutes with pt moving and moaning and able to protect airway. Pt transported to ICU under care of Dr Aguilera. Time Spent With Patient Time: Total time managing care of this patient today ____ minutes.
--- NOTE | 2024-09-08 16:46 | W.MHC.ACPN ---
Advanced Care Planning Note Advanced Care Planning Note Time spent (in minutes): 35 Narrative: Received a MOLST form that said patient is a full code. Called patient's daughter Luna Barney and told her about this forms, she said Margo did not want it to be on life support or did not want to be coded in case of cardiac arrest. All the children discussed about this again yesterday and all are in agreement about making the patient DNI DNR. Since the patient is not able to make the decisions due to advanced dementia we will respect family's decision and keep her DNI DNR. Problems Discussed (1) Bipolar disorder: (2) Dementia:
--- NOTE | 2024-09-08 17:11 | ED.CPR ---
HPI - CPR General Source: other ( Hospitalist) History of Present Illness ED Provider: Dr. Lokesh Rowe HPI narrative: 89-year-old female HTN, HLD, restless leg syndrome, nicotine dependence, and bipolar disorder with psychotic features who is admitted to [facility] for hallucinating and agitation. A rapid response was called on this patient and then a code blue was called. I responded to the code blue. When I arrived on the geropsych unit, the patient was on a stretcher, CPR was in progress, the respiratory therapists were using a bag-valve mask to ventilate the patient. I obtained the following from the hospitalist. Rapid response was called for patient that was unresponsive with a blood pressure of 49/29 after having a large bowel movement in the dining room. Patient has aganol breathing with a thready pulse and then lost her pulse. When I arrived the geropychiatirc unit, the patient had no pulse and CPR was in progress. At the 1st pulse check the patient had no pulse and CPR was continued. At the 2nd pulse check the patient had a pulse, she was breathing spontaneously. She was able to tell me her name and answer questions. Patient was placed oxygen and I accompanied the patient to the ICU. The patient was tranfered off the stretch onto the ICU bed. She remained awake, alert and did not appear in distress. The patient's care was turned over to the sales ledger clerk, Dr. Aguilera. Related Data Previous Rx's ?Medication ?Instructions ?Recorded Polyvinyl Alcohol 1.4% Drops 1 drp ophthalmic (eye) TID ##0 09/11/24 Vitamin D3 125 Mcg 1 tab PO DAILY ##0 09/11/24 amlodipine 10 mg tablet 10 mg PO DAILY #0 tabs 09/11/24 atorvastatin 10 mg tablet 10 mg PO BEDTIME #0 tabs 09/11/24 divalproex 250 mg tablet,delayed 250 mg PO BEDTIME #0 tabs 09/11/24 release docusate sodium 100 mg capsule 100 mg PO DAILY PRN Constipation 09/11/24 #0 caps famotidine 20 mg tablet 20 mg PO DAILY@0630 #0 tabs 09/11/24 gabapentin 100 mg capsule 200 mg (2 x 100 mg) PO TID #0 caps 09/11/24 hydralazine 25 mg tablet 25 mg PO TID #0 tabs 09/11/24 hydrochlorothiazide 12.5 mg tablet 12.5 mg PO DAILY #0 tabs 09/11/24 lactase 3,000 unit tablet 3,000 unit PO TIDWM #0 tabs 09/11/24 (Dairy-Aid) lisinopril 40 mg tablet 40 mg PO DAILY #0 tabs 09/11/24 lorazepam 0.5 mg tablet 0.5 mg PO TID #0 tabs 09/11/24 metoprolol succinate 100 mg 200 mg PO DAILY #0 tabs 09/11/24 tablet,extended release 24 hr oxybutynin chloride 5 mg 10 mg (2 x 5 mg) PO DAILY #0 tabs 09/11/24 tablet,extended release 24 hr quetiapine 25 mg tablet 25 mg PO BID PRN agitation, 09/11/24 aggression #0 tabs ropinirole 1 mg tablet 1 mg PO BEDTIME #0 tabs 09/11/24 Allergies Allergy/AdvReac Type Severity Reaction Status Date / Time No Known Allergies Allergy Verified 09/07/24 15:15 [facility] Past Medical History Medical History Bipolar disorder with psychotic features Restless leg syndrome HDL deficiency HTN (hypertension) Surgical History H/O left mastectomy Social History Social History Household Members: Other Housing: Intermediate Housing Other:: [facility] Do you presently have visiting nurse or other home services: No Comment: 1:1 Sitter Present Patient Tobacco Use Status: Former Tobacco user Tobacco use type: Cigarette Cigarettes Per Day: 9 Years Smoked: 71 e-Cigarette/Vaping Use: Never Used Second Hand Smoke Exposure: Yes Use of substances other than those prescribed or required for medical reasons: Unknown Substance Use Type: Unknown Currently Displaying Signs/Symptoms of Drug Intoxication Withdrawal: No Advance Directives: No Advance Directives Information Provided: Yes Advance Directives on File: Yes Advance Directives Date on File: 09/11/24 Do you have a plan to hurt others: No Plan Recently lost weight without trying: Unsure How much weight loss: Unsure Eating poorly because of decreased appetite: Yes Nutrition screen score: 5 Nutrition Risks: Poor intake 0-25% >4 days Patient : No : No Poor oral hygiene: No service: No Physical Exam Vital Signs: Vital Signs: Last Vital Signs Temp 97.8 F 09/10/24 11:28 Pulse 78 09/10/24 11:28 Resp 18 09/10/24 11:28 BP 180/92 H 09/10/24 11:28 Pulse Ox 97 09/10/24 11:28 O2 Del Method Room Air 09/10/24 11:28 BMI result Body Mass Index 19.4 exam: Initial exam revealed an elderly woman who was unresponsive, pulseless, getting CPR and being ventilated by respiratory therapy using bag-valve mask. Medications Administered Discontinued Medications Generic Name Dose Route Start Last Admin Trade Name Freq PRN Reason Stop Dose Admin Amlodipine Besylate 10 mg 09/10/24 05:49 09/10/24 07:49 Amlodipine Besylate 10 Mg Tablet PO 09/10/24 05:50 10 mg ONCE ONE Administration Protocol Enoxaparin Sodium 30 mg 09/08/24 13:00 09/09/24 14:45 Enoxaparin Sodium 30 Mg/0.3 Ml Syringe SUBCUT Not Given Q24H JHONNY Famotidine 20 mg 09/08/24 13:00 09/10/24 09:23 Famotidine/Pf 20 Mg/2 Ml Vial IVPUSH 20 mg BID JHONNY Administration Lactated Ringer's 1,000 mls @ 100 mls/hr 09/08/24 13:00 09/09/24 17:19 Lr IVCONT Infused .Q10H JHONNY Infusion Sodium Chloride 1,000 mls @ 999 mls/hr 09/08/24 13:00 09/08/24 13:18 Ns IV 09/08/24 14:00 Infused .Q1H1M JHONNY Infusion Sodium Chloride 1,000 mls @ 999 mls/hr 09/08/24 13:00 09/08/24 13:18 Ns IV 09/08/24 14:00 Infused .Q1H1M JHONNY Infusion Potassium Phosphate 15 mmol in 250 mls @ 62.5 mls/hr 09/09/24 07:30 09/09/24 16:20 Kphos IV 09/09/24 11:29 Infused ONCE ONE Infusion Magnesium Sulfate 2 gm in 50 mls @ 25 mls/hr 09/09/24 17:38 09/09/24 18:13 Magnesium Sulfate/H2o IV 09/09/24 19:37 0 mls/hr ONCE ONE Infusion Lorazepam 1 mg 09/08/24 16:06 09/10/24 05:11 Lorazepam 1 Mg Tablet PO 1 mg TID PRN Administration anxiety/restlessness Lorazepam 1 mg 09/09/24 14:22 09/09/24 14:53 Lorazepam 2 Mg/Ml Vial IM 09/09/24 14:23 1 mg ONCE ONE Administration Metoprolol Succinate 200 mg 09/10/24 05:49 09/10/24 07:53 Metoprolol Succinate Er 100 Mg Tab.Er.24h PO 09/10/24 05:50 200 mg ONCE ONE Administration Protocol Morphine Sulfate 2 mg 09/08/24 20:52 09/08/24 21:22 Morphine Sulfate 2 Mg/Ml Cartridge IVPUSH 09/08/24 20:53 2 mg ONCE ONE Administration Protocol Morphine Sulfate 2 mg 09/09/24 21:10 09/09/24 21:57 Morphine Sulfate 2 Mg/Ml Cartridge IVPUSH 09/09/24 21:11 2 mg ONCE ONE Administration Protocol Potassium Chloride 40 meq 09/09/24 17:38 09/09/24 18:11 Potassium Chloride Packet 20 Meq Packet PO 09/09/24 17:39 40 meq ONCE ONE Administration Quetiapine Fumarate 200 mg 09/08/24 21:00 09/09/24 08:39 Quetiapine Fumarate 200 Mg Tablet PO 200 mg BID JHONNY Administration Medical Decision Making Medical Decision Making MDM Narrative: 89-year-old female HTN, HLD, restless leg syndrome, nicotine dependence, and bipolar disorder with psychotic features who is admitted to [facility] for hallucinating and agitation who was found to be hypotensive after bowel movement and then went into cardiac arrest. patient lost her pulse and was not breathing spontaneously. Patient received epinephrine, CPR and achieved ROSC. Differential diagnosis: Includes but is not limited to vasovagal syncope, cardiac arrest Course: patient and she had ROSC and was transported to ICU for further management. Lab Data 09/09/24 05:15 09/10/24 06:41 Labs: Lab Results 09/08/24 09/08/24 09/08/24 Range/Units 13:22 13:33 14:33 WBC 10.2 (4.8-10.8) X10*3/uL RBC 3.07 L (4.20-5.50) X10*6/uL Hgb 10.3 L (12.0-16.0) g/dl Hct 31.0 L (37.0-47.0) % MCV 101.0 H (80.0-98.0) fL MCH 33.6 H (27.0-33.0) pg MCHC 33.2 (31.0-35.0) g/dl RDW 12.5 (11.0-16.0) % Plt Count 179 (160-400) X10*3/uL MPV 9.9 (9.4-12.3) fL Immature Gran % (Auto) 0.5 H (0.0-0.4) % Neut % (Auto) 78.8 H (45-73) % Lymph % (Auto) 9.7 L (20-40) % Barber % (Auto) 9.9 (2-11) % Eos % (Auto) 0.7 (0-4) % Baso % (Auto) 0.4 (0-2) % Lymph # (Auto) 1.0 L (1.2-4.9) X10*3/uL Barber # (Auto) 1.0 (0.1-1.2) X10*3/uL Eos # (Auto) 0.1 (0.0-0.4) X10*3/uL Baso # (Auto) 0.0 (0.0-0.2) X10*3/uL Abs Immat Gran (auto) 0.05 H (0.00-0.03) X10*3/uL Absolute Neuts (auto) 8.0 (2.0-8.3) x10*3/uL Absolute Nucleated RBC 0.000 (0.0-0.012) X10*3/uL Nucleated RBC % (auto) 0.0 (0.0-0.2) /100WBC Hold Purple Top SEE NOTE D-Dimer High Sensitivty 1543 NG/ML Hold Blue Top SEE NOTE VBG pH (7.32-7.43) VBG pCO2 mmHg VBG pO2 mmHg VBG HCO3 (22-26) mmol/L VBG O2 Saturation % VBG Base Excess mmol/L Sodium 142 (135-145) mmol/L Potassium 3.4 (3.3-5.1) mmol/L Chloride 112 H (96-108) mmol/L Carbon Dioxide 20 L (22-29) mmol/L Anion Gap 13 (12-20) BUN 30 H (9-16) mg/dL Creatinine 1.05 (0.5-1.4) mg/dL Estim Creat Clear Calc TNP Estimated GFR 50 Random Glucose 93 (60-115) mg/dL Lactic Acid 0.8 (0.5-2.0) mmol/L Calcium 8.7 D (8.4-10.2) mg/dL Phosphorus 3.7 (2.7-4.5) mg/dL Magnesium 1.9 (1.6-2.6) mg/dL Total Bilirubin 0.3 (0.0-1.0) mg/dL AST 42 H (5-31) U/L ALT 22 (0-31) U/L Alkaline Phosphatase 68 (39-117) U/L Troponin I High Sens 500.2 H* 606.9 H* (<3.5-17.0) ng/L Total Protein 6.0 L (6.5-8.0) g/dL Albumin 3.4 L (3.5-5.0) g/dL Triglycerides 90 (<150) mg/dL Cholesterol 125 (<200) mg/dL LDL Cholesterol, Calc 62 (<100) mg/dL HDL Cholesterol 45 (>40) mg/dL TSH 0.56 (0.32-4.0) uIU/mL 09/08/24 09/09/24 09/09/24 Range/Units 21:06 05:15 05:26 WBC 7.3 (4.8-10.8) X10*3/uL RBC 3.54 L (4.20-5.50) X10*6/uL Hgb 11.6 L (12.0-16.0) g/dl Hct 35.6 L (37.0-47.0) % MCV 100.6 H (80.0-98.0) fL MCH 32.8 (27.0-33.0) pg MCHC 32.6 (31.0-35.0) g/dl RDW 12.3 (11.0-16.0) % Plt Count 219 (160-400) X10*3/uL MPV 10.0 (9.4-12.3) fL Immature Gran % (Auto) 0.4 (0.0-0.4) % Neut % (Auto) 60.3 (45-73) % Lymph % (Auto) 23.6 (20-40) % Barber % (Auto) 12.5 H (2-11) % Eos % (Auto) 2.6 (0-4) % Baso % (Auto) 0.6 (0-2) % Lymph # (Auto) 1.7 (1.2-4.9) X10*3/uL Barber # (Auto) 0.9 (0.1-1.2) X10*3/uL Eos # (Auto) 0.2 (0.0-0.4) X10*3/uL Baso # (Auto) 0.0 (0.0-0.2) X10*3/uL Abs Immat Gran (auto) 0.03 (0.00-0.03) X10*3/uL Absolute Neuts (auto) 4.4 (2.0-8.3) x10*3/uL Absolute Nucleated RBC 0.000 (0.0-0.012) X10*3/uL Nucleated RBC % (auto) 0.0 (0.0-0.2) /100WBC Hold Purple Top D-Dimer High Sensitivty NG/ML Hold Blue Top VBG pH 7.48 H (7.32-7.43) VBG pCO2 38 mmHg VBG pO2 35 mmHg VBG HCO3 29 H (22-26) mmol/L VBG O2 Saturation 51.0 % VBG Base Excess 5.4 mmol/L Sodium 143 (135-145) mmol/L Potassium 3.5 (3.3-5.1) mmol/L Chloride 105 (96-108) mmol/L Carbon Dioxide 25 (22-29) mmol/L Anion Gap 17 (12-20) BUN 17 H (9-16) mg/dL Creatinine 0.76 (0.5-1.4) mg/dL Estim Creat Clear Calc 39.3 Estimated GFR > 60 Random Glucose 85 (60-115) mg/dL Lactic Acid (0.5-2.0) mmol/L Calcium 9.7 D (8.4-10.2) mg/dL Phosphorus 2.3 L (2.7-4.5) mg/dL Magnesium 1.7 (1.6-2.6) mg/dL Total Bilirubin 0.4 (0.0-1.0) mg/dL AST 44 H (5-31) U/L ALT 25 (0-31) U/L Alkaline Phosphatase 80 (39-117) U/L Troponin I High Sens 336.1 H* (<3.5-17.0) ng/L Total Protein 7.1 (6.5-8.0) g/dL Albumin 3.9 (3.5-5.0) g/dL Triglycerides (<150) mg/dL Cholesterol (<200) mg/dL LDL Cholesterol, Calc (<100) mg/dL HDL Cholesterol (>40) mg/dL TSH (0.32-4.0) uIU/mL 09/10/24 Range/Units 06:41 WBC (4.8-10.8) X10*3/uL RBC (4.20-5.50) X10*6/uL Hgb (12.0-16.0) g/dl Hct (37.0-47.0) % MCV (80.0-98.0) fL MCH (27.0-33.0) pg MCHC (31.0-35.0) g/dl RDW (11.0-16.0) % Plt Count (160-400) X10*3/uL MPV (9.4-12.3) fL Immature Gran % (Auto) (0.0-0.4) % Neut % (Auto) (45-73) % Lymph % (Auto) (20-40) % Barber % (Auto) (2-11) % Eos % (Auto) (0-4) % Baso % (Auto) (0-2) % Lymph # (Auto) (1.2-4.9) X10*3/uL Barber # (Auto) (0.1-1.2) X10*3/uL Eos # (Auto) (0.0-0.4) X10*3/uL Baso # (Auto) (0.0-0.2) X10*3/uL Abs Immat Gran (auto) (0.00-0.03) X10*3/uL Absolute Neuts (auto) (2.0-8.3) x10*3/uL Absolute Nucleated RBC (0.0-0.012) X10*3/uL Nucleated RBC % (auto) (0.0-0.2) /100WBC Hold Purple Top SEE NOTE D-Dimer High Sensitivty NG/ML Hold Blue Top VBG pH (7.32-7.43) VBG pCO2 mmHg VBG pO2 mmHg VBG HCO3 (22-26) mmol/L VBG O2 Saturation % VBG Base Excess mmol/L Sodium 141 (135-145) mmol/L Potassium 3.8 (3.3-5.1) mmol/L Chloride 105 (96-108) mmol/L Carbon Dioxide 24 (22-29) mmol/L Anion Gap 16 (12-20) BUN 13 (9-16) mg/dL Creatinine 0.77 (0.5-1.4) mg/dL Estim Creat Clear Calc 37.7 Estimated GFR > 60 Random Glucose 91 (60-115) mg/dL Lactic Acid (0.5-2.0) mmol/L Calcium 9.5 (8.4-10.2) mg/dL Phosphorus (2.7-4.5) mg/dL Magnesium 2.1 (1.6-2.6) mg/dL Total Bilirubin (0.0-1.0) mg/dL AST (5-31) U/L ALT (0-31) U/L Alkaline Phosphatase (39-117) U/L Troponin I High Sens (<3.5-17.0) ng/L Total Protein (6.5-8.0) g/dL Albumin (3.5-5.0) g/dL Triglycerides (<150) mg/dL Cholesterol (<200) mg/dL LDL Cholesterol, Calc (<100) mg/dL HDL Cholesterol (>40) mg/dL TSH (0.32-4.0) uIU/mL Critical Care Time Critical Care Time Critical Care Time: Yes Total Critical Care Time: 35 Attestation: Critical Care: The patient was critically ill with a high probability of imminent or life threatening deterioration. I spent greater than 30 minutes of discontinuous time evaluating the patient,delivering critical care at the bedside, discussing and evaluating pertinent data with consultants. Critical care time does not include time spent performing separately billable procedures or teaching. Total time spent performing critical care was 35 minutes. Discharge Plan Discharge Anticipated Discharge Date/Time: 09/10/24 11:52 Patient Disposition: Xfer Psychiatric Hosp Discharge Diagnosis: vasovagal syncope Discharge Medications: No Action quetiapine 25 mg Tablet 25 mg PO BID PRN (Reason: agitation, aggression) Qty: 0 0RF ropinirole 1 mg Tablet 1 mg PO BEDTIME Qty: 0 0RF divalproex 250 mg Tablet,Delayed Release (Dr/Ec) 250 mg PO BEDTIME Qty: 0 0RF atorvastatin 10 mg Tablet 10 mg PO BEDTIME Qty: 0 0RF metoprolol succinate 100 mg Tablet Extended Release 24 Hr 200 mg PO DAILY Qty: 0 0RF Protocol: Hold for SBP/HR < HOLD for SBP < : 90 HOLD for HR < : 60 hydralazine 25 mg Tablet 25 mg PO TID Qty: 0 0RF Protocol: Hold for SBP< HOLD for SBP < : 90 famotidine 20 mg Tablet 20 mg PO DAILY@0630 Qty: 0 0RF lorazepam 0.5 mg Tablet 0.5 mg PO TID Qty: 0 0RF amlodipine 10 mg Tablet 10 mg PO DAILY Qty: 0 0RF Protocol: Hold for SBP< HOLD for SBP < : 90 lactase [Dairy-Aid] 3,000 unit Tablet 3,000 unit PO TIDWM Qty: 0 0RF docusate sodium 100 mg Capsule 100 mg PO DAILY PRN (Reason: Constipation) Qty: 0 0RF oxybutynin chloride 5 mg Tablet Extended Release 24hr 10 mg PO DAILY Qty: 0 0RF gabapentin 100 mg Capsule 200 mg PO TID Qty: 0 0RF lisinopril 40 mg Tablet 40 mg PO DAILY Qty: 0 0RF Protocol: Hold for SBP< HOLD for SBP < : 90 hydrochlorothiazide 12.5 mg Tablet 12.5 mg PO DAILY Qty: 0 0RF Protocol: Hold for SBP< HOLD for SBP < : 90 Polyvinyl Alcoh 1 drp ophthalmic (eye) TID Qty: 0 0RF Vitamin D3 125 1 tab PO DAILY Qty: 0 0RF Discharge Orders: Discharge Order (Routine); Ordered 09/10/24 Ordered By: Ashley Root Diet: Advance to usual diet Activity on Discharge: As tolerated Stand Alone Forms: Patient Portal Discharge page Print Language: Serbian Care Plan Goals: Transfer back to for psychiatric care Health Concerns: Vasovagal syncope Plan of Treatment: Take all medications as prescribed Assessment: See discharge summary Discharge Date/Time: 09/10/24 12:16
[2024-09-08] MEDS: QUEtiapine Fumarate 200 MG TABLET PO (20:22)
[2024-09-08] MEDS: LORazepam 1 MG TABLET PO (20:22)
[2024-09-08] MEDS: Morphine Sulfate 2 MG/ML CARTRIDGE IVPUSH (21:22)
[2024-09-08 21:49] LABS: Troponin-I High Sensitivity 336.1 ng/L (<3.5-17.0)
[2024-09-09] VITALS (15 sets, daily range): BP systolic 108–176; BP diastolic 56–88; PULSE 62–89; RESP 12–20; TEMP 36.1–36.4; O2SAT 95–98; BMI 20.2
--- NOTE | 2024-09-09 | ECG_ITS ---
Test Reason : QT INTERVAL Blood Pressure : */* mmHG Vent. Rate : 81 BPM Atrial Rate : 81 BPM P-R Int : 154 ms QRS Dur : 92 ms QT Int : 444 ms P-R-T Axes : 45 22 16 degrees QTcB Int : 515 ms Normal sinus rhythm with sinus arrhythmia Prolonged QT Abnormal ECG When compared with ECG of 08-Sep-2024 21:51, No significant change was found Referred By: Clark Aguilera Electronically Signed By: LISA WOODY MD
[2024-09-09] MEDS: Lactated Ringers 1,000 ML 100 ML IVCONT ×2 (01:00→08:37)
[2024-09-09] MEDS: LORazepam 1 MG TABLET PO (04:31)
[2024-09-09 05:30] LABS: VBG Base Excess 5.4 mmol/L; VBG HCO3 29 mmol/L (22-26); VBG pCO2 38 mmHg; VBG pH 7.48 (7.32-7.43); VBG pO2 35 mmHg
[2024-09-09 05:39] LABS: MANUAL DIFF FLAG NO
[2024-09-09 05:43] LABS: Basophils Percent Auto 0.6 % (0-2); Eosinophils Absolute Auto 0.2 X10*3/uL (0.0-0.4); Eosinophils Percent Auto 2.6 % (0-4); Hematocrit 35.6 % (37.0-47.0); Hemoglobin 11.6 g/dl (12.0-16.0); Imm Gran Abs Auto 0.03 X10*3/uL (0.00-0.03); Imm Gran Pct Auto 0.4 % (0.0-0.4); Lymphocytes Absolute Auto 1.7 X10*3/uL (1.2-4.9); Lymphocytes Percent Auto 23.6 % (20-40); Mean Corpuscular HGB Conc 32.6 g/dl (31.0-35.0); Mean Corpuscular Hemoglobin 32.8 pg (27.0-33.0); Mean Corpuscular Volume 100.6 fL (80.0-98.0); Monocytes Absolute Auto 0.9 X10*3/uL (0.1-1.2); Monocytes Percent Auto 12.5 % (2-11); Neutrophils Absolute Auto 4.4 x10*3/uL (2.0-8.3); Neutrophils Percent Auto 60.3 % (45-73); Platelet Count 219 X10*3/uL (160-400); Red Blood Count 3.54 X10*6/uL (4.20-5.50); Red Cell Distribution Width 12.3 % (11.0-16.0); White Blood Count 7.3 X10*3/uL (4.8-10.8)
[2024-09-09 05:44] LABS: Venous Blood Gas Refer to POC result
[2024-09-09 06:08] LABS: Alanine Aminotransferase 25 U/L (0-31); Albumin Level 3.9 g/dL (3.5-5.0); Alkaline Phosphatase 80 U/L (39-117); Anion Gap 17 (12-20); Aspartate Amino Transferase 44 U/L (5-31); Bilirubin Total 0.4 mg/dL (0.0-1.0); Blood Urea Nitrogen 17 mg/dL (9-16); Calcium 9.7 mg/dL (8.4-10.2); Carbon Dioxide 25 mmol/L (22-29); Chloride 105 mmol/L (96-108); Creatinine Clr Calc Pharmacy 39.3; Estimated Glomerular Filt Rate > 60; Glucose Random 85 mg/dL (60-115); Magnesium 1.7 mg/dL (1.6-2.6); Phosphorus 2.3 mg/dL (2.7-4.5); Potassium 3.5 mmol/L (3.3-5.1); Sodium 143 mmol/L (135-145); Total Protein 7.1 g/dL (6.5-8.0)
[2024-09-09] MEDS: Potassium Phosphate/NS 15 MMOL/250 ML PLAST..BAG 62.5 MMOL IV (08:32)
[2024-09-09] MEDS: QUEtiapine Fumarate 200 MG TABLET PO (08:39)
[2024-09-09] MEDS: Famotidine/PF 20 MG/2 ML VIAL IVPUSH ×2 (08:39→21:57)
--- NOTE | 2024-09-09 09:14 | PM.CCPN ---
Subjective Subjective Date of Service: 09/09/24 Critical Care Time (minutes): 35 Comment: Lab stable, hemodynamically stable, no acute events Physical Exam Vital Signs: Vital Signs: Last Vital Signs Temp 97.2 F 09/09/24 08:00 Pulse 63 09/09/24 08:00 Resp 14 09/09/24 08:00 BP 117/65 09/09/24 08:00 Pulse Ox 96 09/09/24 08:00 O2 Del Method Room Air 09/09/24 08:00 BMI result Body Mass Index 20.2 General: eldelry lady sitting in the bed comfortable Nutritional Appearance: well nourished and overweight Eyes: appearance normal, both eyes and all related structures; Alignment and Position: alignment normal and position normal Neck: No lymphadenopathy, no thyromegaly Resp: bilateral air entry equal, occasional added sounds present Cardio: Regular rate, regular rhythm; Heart sounds: S1 normal heart sound present and S2 normal heart sound present GI: soft, nontender, no guarding, no hepatosplenomegaly : bladder normal to inspection, bladder normal to palpation, no renal angle tenderness Skin: no rashes or lesions noted and elasticity normal Neuro: confusion +, no focal defecit moves all extremities Objective Data Labs 09/09/24 05:15 09/09/24 05:15 Labs: Laboratory Results - last 24 hr 09/08/24 09/08/24 09/08/24 13:22 13:33 14:33 WBC 10.2 RBC 3.07 L Hgb 10.3 L Hct 31.0 L MCV 101.0 H MCH 33.6 H MCHC 33.2 RDW 12.5 Plt Count 179 MPV 9.9 Immature Gran % (Auto) 0.5 H Neut % (Auto) 78.8 H Lymph % (Auto) 9.7 L Davison % (Auto) 9.9 Eos % (Auto) 0.7 Baso % (Auto) 0.4 Lymph # (Auto) 1.0 L Davison # (Auto) 1.0 Eos # (Auto) 0.1 Baso # (Auto) 0.0 Abs Immat Gran (auto) 0.05 H Absolute Neuts (auto) 8.0 Absolute Nucleated RBC 0.000 Nucleated RBC % (auto) 0.0 Hold Purple Top SEE NOTE D-Dimer High Sensitivty 1543 Hold Blue Top SEE NOTE VBG pH VBG pCO2 VBG pO2 VBG HCO3 VBG O2 Saturation VBG Base Excess Sodium 142 Potassium 3.4 Chloride 112 H Carbon Dioxide 20 L Anion Gap 13 BUN 30 H Creatinine 1.05 Estim Creat Clear Calc TNP Estimated GFR 50 Random Glucose 93 Lactic Acid 0.8 Calcium 8.7 D Phosphorus 3.7 Magnesium 1.9 Total Bilirubin 0.3 AST 42 H ALT 22 Alkaline Phosphatase 68 Troponin I High Sens 500.2 H* 606.9 H* Total Protein 6.0 L Albumin 3.4 L Triglycerides 90 Cholesterol 125 LDL Cholesterol, Calc 62 HDL Cholesterol 45 TSH 0.56 09/08/24 09/09/24 09/09/24 21:06 05:15 05:26 WBC 7.3 RBC 3.54 L Hgb 11.6 L Hct 35.6 L MCV 100.6 H MCH 32.8 MCHC 32.6 RDW 12.3 Plt Count 219 MPV 10.0 Immature Gran % (Auto) 0.4 Neut % (Auto) 60.3 Lymph % (Auto) 23.6 Davison % (Auto) 12.5 H Eos % (Auto) 2.6 Baso % (Auto) 0.6 Lymph # (Auto) 1.7 Davison # (Auto) 0.9 Eos # (Auto) 0.2 Baso # (Auto) 0.0 Abs Immat Gran (auto) 0.03 Absolute Neuts (auto) 4.4 Absolute Nucleated RBC 0.000 Nucleated RBC % (auto) 0.0 Hold Purple Top D-Dimer High Sensitivty Hold Blue Top VBG pH 7.48 H VBG pCO2 38 VBG pO2 35 VBG HCO3 29 H VBG O2 Saturation 51.0 VBG Base Excess 5.4 Sodium 143 Potassium 3.5 Chloride 105 Carbon Dioxide 25 Anion Gap 17 BUN 17 H Creatinine 0.76 Estim Creat Clear Calc 39.3 Estimated GFR > 60 Random Glucose 85 Lactic Acid Calcium 9.7 D Phosphorus 2.3 L Magnesium 1.7 Total Bilirubin 0.4 AST 44 H ALT 25 Alkaline Phosphatase 80 Troponin I High Sens 336.1 H* Total Protein 7.1 Albumin 3.9 Triglycerides Cholesterol LDL Cholesterol, Calc HDL Cholesterol TSH Progress Note: A&P Assessment and plan (1) Bipolar disorder: Status: Acute (2) Dementia: Status: Acute (3) Medical clearance for psychiatric admission: Status: Acute Plan Syncope: Patient possibly had an episode of vasovagal syncope following a large bowel movement leading to hypo tension and unresponsiveness that improved within 3-5 minutes. Blood pressures promptly improved after normal saline bolus. Patient was found down, code blue was called and chest compressions were done for about 2-3 minutes before ROSC was achieved, not sure if the patient actually lost pulse. No concern for infection or sepsis at this point. troponin trend flat, leak due to chest compressions bedside echo showed normal LV function D-dimer increased but lower extremity dopplers showed no DVT, RV size small. Hypertension: Withhold antihypertensives due to episode of hypotension yesterday can restart once blood pressures are more stable Bipolar disorder: as per psych QTC 515, will repeat today on Quetiapine as per psych Quality Stroke Does the patient have a stroke diagnosis?: No VTE Prior VTE?: No VTE Risk Level:: Medical - low VTE Device Contraindication: N/A - Device Ordered VTE Drug Contraindication: N/A - Med Ordered
--- NOTE | 2024-09-09 10:32 | MHC.CM.PN ---
IMM DELIVERED TO DAUGHTER/HCP GREER WHO REQUESTS WHITE COPY BE MAILED TO [address]. PT IS A LTC PT AT [facility]. PER DAUGHTER, PLAN IS TO RETURN THERE AFTER DC FROM [facility]. RETURN REFERRAL SENT AND COPY OF HCP REQUESTED. PT WILL TRANSPORT VIA BLS.
[2024-09-09] MEDS: LORazepam 2 MG/ML VIAL 1 MG IM (14:53)
--- NOTE | 2024-09-09 17:08 | P.EN_ITS ---
Event Note Date of Service: 09/09/24 Event Note: this is an 89 year old female with history of HTN, HLD, RLS, nicotine dependence, bipolar disorder who was admitted to [facility] floor for hallucinations and agitation. [employer] called for PT unresponsiveness, BP 49/29 in context of very large BM in dining room. Arrived to find pt with agonal respirations, thready pulse that was subsequently lost. Asked for code status and was told she was full code. Immediately started chest compressions while IV access was obtained and once it was, given 1 mg epinephrine followed by 1L NS with ROSC after 2 minutes with pt moving and moaning and able to protect airway. Pt transported to ICU under care of Dr Aguilera. She ws responsive and episode was thought to be due to vasovagal syncope. Blood pressure improved after normal saline bolus. Baseline blood pressure medications have been placed on hold. Patient remained stable overnight and was downgraded to the medical floor on 09/09. Patient able returned back to [facility] when bed is available. will get cxr as pt had cpr. follow qt as noted to be >500 will hold seroquel for now, official psych consult still pending. per psych note - can use ativan po prn agitation. Time Spent With Patient Time: Total time managing care of this patient today ____ minutes.
[2024-09-09] MEDS: Potassium Chloride Packet 20 MEQ PACKET 40 MEQ PO (18:11)
[2024-09-09] MEDS: Magnesium Sulfate/H2O 2 GM/50 ML PIGGYBACK IV (18:11)
[2024-09-09] MEDS: Morphine Sulfate 2 MG/ML CARTRIDGE IVPUSH (21:57)
[2024-09-10 03:14] VITALS: BP 184/95; PULSE 91; RESP 16; TEMP 36.4; O2SAT 96
[2024-09-10 04:47] VITALS: BP 187/93; PULSE 91
[2024-09-10] MEDS: LORazepam 1 MG TABLET PO (05:11)
[2024-09-10 05:34] VITALS: BMI 19.4
[2024-09-10 07:16] LABS: Anion Gap 16 (12-20); Blood Urea Nitrogen 13 mg/dL (9-16); Calcium 9.5 mg/dL (8.4-10.2); Carbon Dioxide 24 mmol/L (22-29); Chloride 105 mmol/L (96-108); Creatinine Clr Calc Pharmacy 37.7; Estimated Glomerular Filt Rate > 60; Glucose Random 91 mg/dL (60-115); Magnesium 2.1 mg/dL (1.6-2.6); Potassium 3.8 mmol/L (3.3-5.1); Sodium 141 mmol/L (135-145)
[2024-09-10 07:20] VITALS: BP 164/91; PULSE 95; RESP 18; TEMP 36.4; O2SAT 97
[2024-09-10] MEDS: amLODIPine Besylate 10 MG TABLET PO (07:49)
[2024-09-10] MEDS: Metoprolol Succinate ER 100 MG TAB.ER.24H 200 MG PO (07:53)
[2024-09-10] MEDS: Famotidine/PF 20 MG/2 ML VIAL IVPUSH (09:23)
[2024-09-10 11:28] VITALS: BP 180/92; PULSE 78; RESP 18; TEMP 36.6; O2SAT 97
--- NOTE | 2024-09-10 11:54 | P.DS_ITS ---
DS: Providers Provider Date of Service: 09/10/24 Date of admission: 09/08/24 12:52 Date of discharge: 09/10/24 Primary care physician: Unknown Physician Consults: 09/08/24 12:51 Consult to Psychiatry Routine Consulting Provider: [facility] [place] [facility] [place] Reason for consultation: bipolar disorder Has provider been notified: No 09/09/24 15:35 Inpt CARE Team Crisis Consult Routine Comment: Reason for consultation: manic, was on [facility] Has provider been notified: Yes DS: Diagnosis Discharge Diagnosis (1) Bipolar disorder: Status: Acute (2) Dementia: Status: Acute (3) Medical clearance for psychiatric admission: Status: Acute DS: Summary Hospital Course Hospital Course: History and physical as per admitting provider. 89-year-old lady with past medical history of dementia, hypertension, hyperlipidemia, bipolar disorder was admitted from SN[facility] to [facility] due to behavioral issues. Her initial labs and vitals were stable. This morning patient had a large bowel movement following which she possibly had a vasovagal syncope and was found unresponsive. A rapid response ambulator code was called in, not very sure if she lost the pulse but chest compressions were done for about 2-3 minutes. Patient is alert after that. 89 year old female with history of HTN, HLD, RLS, nicotine dependence, bipolar disorder who was admitted to [facility] psych floor for hallucinations and agitation. JAVA XML DEVELOPER called for PT unresponsiveness, BP 49/29 in context of very large BM in dining room. Arrived to find pt with agonal respirations, thready pulse that was subsequently lost. Asked for code status and was told she was full code. Immediately started chest compressions while IV access was obtained and once it was, given 1 mg epinephrine followed by 1L NS with ROSC after 2 minutes with pt moving and moaning and able to protect airway. Pt transported to ICU under care of Dr Aguilera. She was responsive and episode was thought to be due to vasovagal syncope. Blood pressure improved after normal saline bolus. Baseline blood pressure medications have been placed on hold. Patient remained stable overnight and was downgraded to the medical floor on 09/09. Patient able returned back to [facility]. cxr neg after cpr. follow qt as noted to be >500 will hold seroquel for now Time Attestation Discharge Coordination Time (in mins): 40 Quality: Safe Use of Opioids Does Pt have an Active Cancer Diagnosis on the Problem List?: No Quality: Stroke Does the patient have a stroke diagnosis?: No Physical Exam Vital Signs: Vital Signs: Last Vital Signs Temp 97.8 F 09/10/24 11:28 Pulse 78 09/10/24 11:28 Resp 18 09/10/24 11:28 BP 180/92 H 09/10/24 11:28 Pulse Ox 97 09/10/24 11:28 O2 Del Method Room Air 09/10/24 11:28 BMI result Body Mass Index 19.4 Appearing in no acute distress head is normocephalic atraumatic eyes pupils are PERRLA sclera is anicteric mouth throat mucous membranes are intact and moist neck is supple no lymphadenopathy, no JVD noted lung sounds are clear to auscultation heart regular rate rhythm, clear S1, S2 positive bowel sounds, abdomen is soft, nontender neuro patient is alert, confused DS: Data Data Completed and Pending Labs on day of discharge: Laboratory Results - last 24 hr 09/10/24 06:41 Hold Purple Top SEE NOTE Sodium 141 Potassium 3.8 Chloride 105 Carbon Dioxide 24 Anion Gap 16 BUN 13 Creatinine 0.77 Estim Creat Clear Calc 37.7 Estimated GFR > 60 Random Glucose 91 Calcium 9.5 Magnesium 2.1 Preliminary micro results at discharge 09/08/24 14:33 Blood Culture - Preliminary Blood - Central Line No growth after 24 hours. 09/08/24 14:33 Blood Culture - Preliminary Blood - Central Line No growth after 24 hours. Discharge Plan Discharge Anticipated Discharge Date/Time: 09/10/24 11:52 Patient Disposition: Xfer Psychiatric Hosp Discharge Diagnosis: vasovagal syncope Discharge Medications: Continued ropinirole 1 mg Tablet 1 mg PO BEDTIME oxybutynin chloride 10 mg Tablet Extended Release 24hr 10 mg PO DAILY metoprolol succinate 200 mg Tablet Extended Release 24 Hr 200 mg PO DAILY quetiapine [Seroquel] 200 mg Tablet 200 mg PO BID docusate sodium 50 mg Capsule 100 mg PO DAILY PRN (Reason: Constipation) lorazepam 0.5 mg tablet 1 mg PO TID PRN (Reason: anxiety/restlesness) amlodipine 10 mg tablet 10 mg PO DAILY lactase [Lactaid] 3,000 unit Tablet 3,000 unit PO TIDAC Rx Instructions: administer with meals and/or snacks lisinopril 40 mg Tablet 40 mg PO DAILY divalproex 250 mg Tablet,Delayed Release (Dr/Ec) 250 mg PO BEDTIME No Action gabapentin 100 mg Capsule 200 mg PO TID Discharge Orders: Discharge Order (Routine); Ordered 09/10/24 Ordered By: Ashley Root Diet: Advance to usual diet Activity on Discharge: As tolerated Stand Alone Forms: Patient Portal Discharge page Print Language: South African Care Plan Goals: Transfer back to for psychiatric care Health Concerns: Vasovagal syncope Plan of Treatment: Take all medications as prescribed Assessment: See discharge summary Discharge Date/Time: 09/10/24 12:16
== END 2024-09-10 12:16 | DRG 312 ==
LOC: HO.ICU 13:42 → HO.IMC 09-09 11:54
PROVIDERS: Physician Assistant Medical; Admitting Provider Internal Medicine Critical Care Medicine; PCP Internal Medicine; Visit Provider Nurse Practitioner Acute Care
DX: R55 Syncope and collapse (principal); I10 Essential (primary) hypertension; Z71.6 Tobacco abuse counseling; F17.200 Nicotine dependence, unspecified, uncomplicated; Z79.899 Other long term (current) drug therapy
CPT/HCPCS: 36415; 71045; 80048; 80053; 80061; 80076; 82803; 83605; 83735; 84100; 84443; 84484; 85025; 85027; 85379; 87040; 92507; 92610; 93005; 93970; 94799; 95816; J1650; J1920; J2060; J2270; J3475; J7120; S9485

== ENCOUNTER → 2024-09-08 12:52 | Outpatient (BNV) | payer MEDICARE, MEDICAID, SELFPAY | PROVIDERS: Admitting Provider Internal Medicine Critical Care Medicine; Visit Provider Family Medicine | DX: R56.9 Unspecified convulsions (principal); F31.2 Bipolar disorder, current episode manic severe with psychotic features; F03.90 Unspecified dementia, unspecified severity, without behavioral disturbance, psychotic disturbance, mood disturbance, and anxiety | CPT/HCPCS: 99239; 99499 ==

== ENCOUNTER → 2024-09-08 12:52 | Outpatient (BNV) | payer MEDICARE, MEDICAID, SELFPAY | PROVIDERS: Admitting Provider Internal Medicine Critical Care Medicine; Visit Provider Internal Medicine Critical Care Medicine | DX: R56.9 Unspecified convulsions (principal); R55 Syncope and collapse; F31.9 Bipolar disorder, unspecified; F03.90 Unspecified dementia, unspecified severity, without behavioral disturbance, psychotic disturbance, mood disturbance, and anxiety | CPT/HCPCS: 99291 ==

== ENCOUNTER → 2024-09-08 12:52 | Outpatient (BNV) | payer MEDICARE, MEDICAID, SELFPAY | PROVIDERS: Admitting Provider Internal Medicine Critical Care Medicine; Visit Provider Psychiatry & Neurology Psychiatry | DX: F31.2 Bipolar disorder, current episode manic severe with psychotic features (principal); F03.90 Unspecified dementia, unspecified severity, without behavioral disturbance, psychotic disturbance, mood disturbance, and anxiety | CPT/HCPCS: 99499 ==

== ENCOUNTER 2024-09-10 12:18 | Outpatient (BNV) | payer MEDICARE, MEDICAID, SELFPAY | END 2024-09-11 14:58 | PROVIDERS: Admitting Provider Clinical Nurse Specialist Psychiatric/Mental Health, Adult; PCP Internal Medicine; Visit Provider Radiology Diagnostic Radiology | DX: R41.82 Altered mental status, unspecified (principal) | CPT/HCPCS: 70450 ==

== ENCOUNTER 2024-09-10 12:18 | Inpatient (IN) | payer MEDICARE, MEDICAID, SELFPAY ==
--- NOTE | ~2024-09-10 | CT_ITS ---
CLINICAL HISTORY: AMS CT head without contrast Comparison: None Findings: No intra-axial mass, midline shift, hydrocephalus, or acute hemorrhage. Diffuse volume loss. Periventricular and subcortical white matter hypoattenuation likely chronic small-vessel ischemic changes. Intracranial atherosclerosis. There is no sinus or mastoid fluid. No acute findings in the orbits. There is no acute fracture. IMPRESSION: 1. No acute intracranial findings. This document has been electronically signed by: Luz Elena Cali MD on 09/11/2024 16:10:44
[2024-09-10 12:30] VITALS: BP 173/83; PULSE 81; RESP 19; TEMP 36.4; O2SAT 93
--- NOTE | 2024-09-10 12:49 | PHA.MEDREC ---
Pharmacy Consult ? Medication Reconciliation Pharmacy has completed the medication reconciliation. Med rec complete at providers request to confirm medications from med floor transferred to psych floor.
[2024-09-10 13:50] LABS: Alanine Aminotransferase 25 U/L (0-31); Albumin Level 4.4 g/dL (3.5-5.0); Alkaline Phosphatase 102 U/L (39-117); Anion Gap 17 (12-20); Aspartate Amino Transferase 39 U/L (5-31); Bilirubin Total 0.3 mg/dL (0.0-1.0); Blood Urea Nitrogen 12 mg/dL (9-16); Carbon Dioxide 26 mmol/L (22-29); Chloride 103 mmol/L (96-108); Estimated Glomerular Filt Rate > 60; Glucose Random 95 mg/dL (60-115); Sodium 142 mmol/L (135-145)
--- NOTE | 2024-09-10 14:02 | PC.ADMIT ---
Pt is 89 y.o. woman who was admitted on 09/07/24 referred by FLIGHT ENGINEER INSPECTOR Crisis w Dx Bipolar D/O w Psychosis, Hx Dx Dementia. Medical issues include HTN, HLD, hx of hip replacement, left mastectomy. Pt resides at [facility]. HCP invoked by daughter prior to admission. Nurse to nurse done with . Arrived on unit at 1430 via ambulance on unit. Skin check done upon arrival to unit with 2 staff present. Confusioned noted during interactions. Mjultiple negative statements made by pt towards taff/patients. Denied SI/HI, denied, AH/ VH. Uncooperative with admission assessment on 09/07/24. Pt med list obtained from [facility] and [facility]. Daughter Luna in touch with other siblings. Luna reports pt smokes currently 5-6 cigaretteds daily and had been smoking 10 cigarettes w good weather. Ce reports possible hx hallucinations/nightmares with use of nicotine patch. Both daughters would like low dose of nicotine patch started as they feel pt will withdraw and become irritable. Precipitating factors to admission: resident of [facility] since January 2024. Reportedly has intermittent mood disorder [id number] per children. Became paranoid, delusional at rehab and was checked for UT which was negative. Depakote leve was low at 14. 2. Pt vasovagaled on unit on 09/07/24. Code was called and pt transferred to medicine. Pt transferred via wheelchair from [facility] floor today at 12:30pm. Pt is confused and unable to speak. Two person safety check done. Blanchable redness at coccyx. Pt in bed, lying on side. Able to move with assist. Fall risk bracelet applied.
--- NOTE | 2024-09-10 14:10 | PM.EVENT ---
Documented by User: Yesesnia Villanueva APRN 09/22/24 11:45 Event Note Date of Service: 09/22/24 Event Note: Transfer back from medicine today. Pepcid decreased to 20 mg daily, Hydroxyzine, Melatonin, Amitriptyline discontinued. Seroquel, Lorazepam decreased and changed to prn. Pt's medical regime essentially unchanged. Will monitor for the need for further changes. Time Spent With Patient Time: Total time managing care of this patient today ____ minutes. Documented by User: Muaricio Lux MD 09/12/24 18:34 Event Note Date of Service: 09/12/24
[2024-09-10 14:50] VITALS: BP 150/83
--- NOTE | 2024-09-10 15:11 | PC.NURSE ---
Pt's daughter Ce called, stated the pt is DNR/DNI, there was a living will created a couple of years ago with this directive. Passed this information along to Bernarda Min.
[2024-09-10 20:00] VITALS: BP 153/78; PULSE 78; RESP 16; TEMP 37.1; O2SAT 98
[2024-09-10 21:50] VITALS: BP 153/78
[2024-09-10] MEDS: hydrALAZINE HCl 25 MG TABLET PO (21:50)
[2024-09-10] MEDS: Divalproex Sodium 250 MG TABLET.DR PO (21:50)
[2024-09-10] MEDS: Atorvastatin Calcium 10 MG TABLET PO (21:50)
[2024-09-10] MEDS: LORazepam 0.5 MG TABLET PO (21:51)
[2024-09-10] MEDS: Gabapentin 100 MG CAPSULE 200 MG PO (21:51)
[2024-09-11] MEDS: Famotidine 20 MG TABLET PO (05:44)
[2024-09-11 08:05] LABS: Cholesterol 164 mg/dL (<200); HDL Cholesterol 57 mg/dL (>40); LDL Cholesterol Calculated 85 mg/dL (<100); Triglycerides 112 mg/dL (<150)
[2024-09-11 09:25] VITALS: RESP 18; TEMP 36.2
--- NOTE | 2024-09-11 09:41 | HO.PSYADMNOT ---
HPI Date of Service: 09/11/24 Chief Complaint: Dementia Bipolar DO Sources of Information: chart reviewed and crisis/core team assessment reviewed HPI Subjective Notes: Section 12B Narrative: Pt seen on 09/10 upon transfer-she is asleep Pt seen 09/11 1030 am. She is in bed, calm, resting, awakens easily and appears in no acute distress. 89 yo female, SNF resident, history of dementia, HTN, HLD, bipolar disorder, admitted to geriatric psychiatry from [facility] 09/08/24 for an increase in symptoms of psychosis and disorganization. On psychiatry, team reports pt had a large bowel movement and a vasovagal/syncopal episode, becoming unresponsive, requiring a rapid response and 2-3 minutes of chest compressions. Pt transferred to medicine, evaluated, fully recovered and returns to psychiatry 09/10 for ongoing geriatric psychiatry care. Pepcid was decreased, Seroquel and lorazepam were decreased, however HCP requested lorazepam remain at the previous dosing which is was. Melatonin, amitriptyline and hydroxyzine were discontinued. Pt returns for assessment of agitation she was initially admitted for. Past Psychiatric History: The patient carries a diagnosis of bipolar disorder with several prior admissions the patient is a very poor historian unable to provide details but apparently she has a lifelong history of mental illness. Medical Evaluation Reviewed: Yes [facility] Medical History Bipolar disorder with psychotic features Restless leg syndrome HDL deficiency HTN (hypertension) Surgical History H/O left mastectomy Family History: Denies Social History: The patient is a resident of snf facility with the behavioral unit. Trauma History: Denies Diagnostics Vital Signs (24Hr): Vital Signs - 24 hr 09/10/24 12:30 09/10/24 14:50 09/10/24 20:00 Temperature 97.6 F 98.7 F Pulse Rate 81 78 Respiratory Rate 19 16 Blood Pressure 173/83 H 150/83 H 153/78 H Pulse Oximetry 93 98 Oxygen Delivery Method Room Air Room Air 09/10/24 21:50 Temperature Pulse Rate Respiratory Rate Blood Pressure 153/78 H Pulse Oximetry Oxygen Delivery Method Labs 09/10/24 13:23 Labs: Laboratory Results - last 48 hr 09/10/24 09/11/24 13:23 07:38 Sodium 142 Potassium 4.0 Chloride 103 Carbon Dioxide 26 Anion Gap 17 BUN 12 Creatinine 0.83 Estim Creat Clear Calc TNP Estimated GFR > 60 Random Glucose 95 Calcium 10.0 Total Bilirubin 0.3 AST 39 H ALT 25 Alkaline Phosphatase 102 Total Protein 8.0 Albumin 4.4 Triglycerides 112 Cholesterol 164 LDL Cholesterol, Calc 85 HDL Cholesterol 57 Meds/Allergies Meds Home Medications ?Medication ?Instructions ?Recorded ?Confirmed ?Type amlodipine 10 mg tablet 10 mg PO DAILY 09/08/24 09/10/24 History divalproex 250 mg tablet,delayed 250 mg PO BEDTIME 09/08/24 09/10/24 History release docusate sodium 50 mg capsule 100 mg PO DAILY PRN Constipation 09/08/24 09/10/24 History lactase 3,000 unit tablet (Lactaid) 3,000 unit PO TIDAC 09/08/24 09/10/24 History lisinopril 40 mg tablet 40 mg PO DAILY 09/08/24 09/10/24 History lorazepam 0.5 mg tablet 1 mg PO TID PRN anxiety/restlesness 09/08/24 09/10/24 History metoprolol succinate 200 mg 200 mg PO DAILY 09/08/24 09/10/24 History tablet,extended release 24 hr oxybutynin chloride 10 mg 10 mg PO DAILY 09/08/24 09/10/24 History tablet,extended release 24 hr quetiapine 200 mg tablet (Seroquel) 200 mg PO BID 09/08/24 09/10/24 History ropinirole 1 mg tablet 1 mg PO BEDTIME 09/08/24 09/10/24 History gabapentin 100 mg capsule 200 mg PO TID 09/10/24 09/10/24 History Allergies Allergies Allergy/AdvReac Type Severity Reaction Status Date / Time No Known Allergies Allergy Verified 09/07/24 15:15 Mental Status Exam Mental Status Exam Patient Appearance: Fatigued Patient Orientation: Person Level of Consciousness: Sedated and Alert Patient Behavior: Fatigued and Good Eye Contact Mood Description: Withdrawn Affect Description: Flat Patient Cognition Impaired: Yes Ability to Follow Directions: Poor Speech Pattern: Impoverished Memory Description: Remote Impaired, Immediate Impaired, Halfway Impaired, Episodic Impaired, Recent Impaired and Working Impaired Hallucinations: None Thought Process: Confusion Depressive Symptoms: Increased Fatigue Judgement: Poor Assessment & Plan Assessment & Plan (1) Bipolar disorder: Status: Acute Code(s): F31.9 - Bipolar disorder, unspecified (2) Dementia: Status: Acute Code(s): F03.90 - Unspecified dementia, unspecified severity, without behavioral disturbance, psychotic disturbance, mood disturbance, and anxiety Plan Admit, Observe for behavioral, psychotic, manic sx. Medication adjustments per symptom presentation. Collateral contact-HCP reports pt is DNR, however, we DO NOT have supportive documentation Supportive milieu Diagnostics as indicated Lorazepam unchanged per HCP request Seroquel changed to prn and decreased Pepcid decreased Melatonin, Amitriptyline, Hydroxyzine discontinued. Per hospitalist team, pt may continue current medical meds at previous dosing Patient educated on: medication risk/benefits, therapeutic strategies and medical condition Reason for continued inpatient stay Substantial Risk for: med/psych decompensation Statement Statement: I have reviewed the history and physical and performed a pertinent examination on my patient. No changes have occurred unless specified. If the History and Physical was not performed prior to admission, the Hospitalist's service will be consulted for completing the admission physical. Time Spent With Patient Time: Total time managing care of this patient today ____ minutes.
[2024-09-11 14:35] VITALS: BP 160/84; PULSE 99; O2SAT 94
[2024-09-11 14:38] VITALS: BP 178/88; PULSE 98; O2SAT 95
[2024-09-11 14:54] LABS: Glucose, Whole Blood 104 mg/dL (60-115)
--- NOTE | 2024-09-11 15:04 | P.DS_ITS ---
DS: Providers Provider Date of Service: 09/11/24 Date of admission: 09/10/24 12:18 Date of discharge: 09/11/24 Primary care physician: Salvador Alcala MD Admitting clinician: Yessenia Villanueva Attending physician on admission: Mauricio Lux Attending physician on discharge: Mauricio Lux Discharging clinician: Yessenia Villanueva DS: Diagnosis Discharge Diagnosis (1) Bipolar disorder: Status: Acute (2) Dementia: Status: Acute DS: Medications Discharge Medications Home Medications: Previous Rx's ?Medication ?Instructions ?Recorded Polyvinyl Alcohol 1.4% Drops 1 drp ophthalmic (eye) TID ##0 09/11/24 Vitamin D3 125 Mcg 1 tab PO DAILY ##0 09/11/24 amlodipine 10 mg tablet 10 mg PO DAILY #0 tabs 09/11/24 atorvastatin 10 mg tablet 10 mg PO BEDTIME #0 tabs 09/11/24 divalproex 250 mg tablet,delayed 250 mg PO BEDTIME #0 tabs 09/11/24 release docusate sodium 100 mg capsule 100 mg PO DAILY PRN Constipation 09/11/24 #0 caps famotidine 20 mg tablet 20 mg PO DAILY@0630 #0 tabs 09/11/24 gabapentin 100 mg capsule 200 mg (2 x 100 mg) PO TID #0 caps 09/11/24 hydralazine 25 mg tablet 25 mg PO TID #0 tabs 09/11/24 hydrochlorothiazide 12.5 mg tablet 12.5 mg PO DAILY #0 tabs 09/11/24 lactase 3,000 unit tablet 3,000 unit PO TIDWM #0 tabs 09/11/24 (Dairy-Aid) lisinopril 40 mg tablet 40 mg PO DAILY #0 tabs 09/11/24 lorazepam 0.5 mg tablet 0.5 mg PO TID #0 tabs 09/11/24 metoprolol succinate 100 mg 200 mg PO DAILY #0 tabs 09/11/24 tablet,extended release 24 hr oxybutynin chloride 5 mg 10 mg (2 x 5 mg) PO DAILY #0 tabs 09/11/24 tablet,extended release 24 hr quetiapine 25 mg tablet 25 mg PO BID PRN agitation, 09/11/24 aggression #0 tabs ropinirole 1 mg tablet 1 mg PO BEDTIME #0 tabs 09/11/24 Mental Status Exam Mental Status Exam Narrative: unresponsive, rapid response called Data Data Completed and Pending Completed studies during hospitalization [Text1]: 09/10/24 09/11/24 09/11/24 13:23 07:38 14:37 Sodium 142 Potassium 4.0 Chloride 103 Carbon Dioxide 26 Anion Gap 17 BUN 12 Creatinine 0.83 Estim Creat Clear Calc TNP Estimated GFR > 60 POC Glucose 104 Random Glucose 95 Calcium 10.0 Total Bilirubin 0.3 AST 39 H ALT 25 Alkaline Phosphatase 102 Total Protein 8.0 Albumin 4.4 Triglycerides 112 Cholesterol 164 LDL Cholesterol, Calc 85 HDL Cholesterol 57 DS: Summary Hospital Course Hospital Course: Pt transferred to geriatric psychiatry from medicine on 09/10/24 s/p unresponsive episode. Today, she experienced another unresponsive episode and will return to medicine for further treatment. Status at Discharge Functional status at discharge: bed bound Overall status at discharge: patient is not back to baseline Time Spent with Patient Time attestation: Total time managing care of this patient today ____ minutes. Time spent: Less than 30 minutes Discharge Plan Discharge Anticipated Discharge Date/Time: 09/11/24 15:00 Patient Disposition: Xfer Acute Care Hospital Discharge Diagnosis: Dementia Bipolar Disorder Referrals: Salvador Alclaa MD [Primary Care Provider] - 1 Week Discharge Medications: New quetiapine 25 mg Tablet 25 mg PO BID PRN (Reason: agitation, aggression) Qty: 0 0RF ropinirole 1 mg Tablet 1 mg PO BEDTIME Qty: 0 0RF divalproex 250 mg Tablet,Delayed Release (Dr/Ec) 250 mg PO BEDTIME Qty: 0 0RF atorvastatin 10 mg Tablet 10 mg PO BEDTIME Qty: 0 0RF metoprolol succinate 100 mg Tablet Extended Release 24 Hr 200 mg PO DAILY Qty: 0 0RF Protocol: Hold for SBP/HR < HOLD for SBP < : 90 HOLD for HR < : 60 hydralazine 25 mg Tablet 25 mg PO TID Qty: 0 0RF Protocol: Hold for SBP< HOLD for SBP < : 90 famotidine 20 mg Tablet 20 mg PO DAILY@0630 Qty: 0 0RF lorazepam 0.5 mg Tablet 0.5 mg PO TID Qty: 0 0RF amlodipine 10 mg Tablet 10 mg PO DAILY Qty: 0 0RF Protocol: Hold for SBP< HOLD for SBP < : 90 lactase [Dairy-Aid] 3,000 unit Tablet 3,000 unit PO TIDWM Qty: 0 0RF docusate sodium 100 mg Capsule 100 mg PO DAILY PRN (Reason: Constipation) Qty: 0 0RF oxybutynin chloride 5 mg Tablet Extended Release 24hr 10 mg PO DAILY Qty: 0 0RF gabapentin 100 mg Capsule 200 mg PO TID Qty: 0 0RF lisinopril 40 mg Tablet 40 mg PO DAILY Qty: 0 0RF Protocol: Hold for SBP< HOLD for SBP < : 90 hydrochlorothiazide 12.5 mg Tablet 12.5 mg PO DAILY Qty: 0 0RF Protocol: Hold for SBP< HOLD for SBP < : 90 Polyvinyl Alcoh 1 drp ophthalmic (eye) TID Qty: 0 0RF Vitamin D3 125 1 tab PO DAILY Qty: 0 0RF Discontinued ropinirole 1 mg Tablet 1 mg PO BEDTIME oxybutynin chloride 10 mg Tablet Extended Release 24hr 10 mg PO DAILY metoprolol succinate 200 mg Tablet Extended Release 24 Hr 200 mg PO DAILY quetiapine [Seroquel] 200 mg Tablet 200 mg PO BID docusate sodium 50 mg Capsule 100 mg PO DAILY PRN (Reason: Constipation) lorazepam 0.5 mg tablet 1 mg PO TID PRN (Reason: anxiety/restlesness) amlodipine 10 mg tablet 10 mg PO DAILY lactase [Lactaid] 3,000 unit Tablet 3,000 unit PO TIDAC Rx Instructions: administer with meals and/or snacks lisinopril 40 mg Tablet 40 mg PO DAILY divalproex 250 mg Tablet,Delayed Release (Dr/Ec) 250 mg PO BEDTIME gabapentin 100 mg Capsule 200 mg PO TID Discharge Orders: Discharge Order (Routine); Ordered 09/11/24 Ordered By: Neto Marroquin Stand Alone Forms: Patient Portal Discharge page Print Language: Upper Sorbian Care Plan Goals: Tranfer to medicine post rapid response Health Concerns: unresponsive episode Plan of Treatment: admit to medicine Assessment: unresponsive episode
--- NOTE | 2024-09-11 15:43 | PC.NURSE ---
At approximately 14:30, [facility] to assist her out of bed into w/c. Pt was not responding to verbal commands at this time. Nursing notified, pt continued to be nonresponsive to verbal commands but responsive/grimacing to painful stimuli, staring blankly with fixed gaze. Rapid response called. BP 160/84 O2 94% on room air, P 99. BS 104. Recheck BP 178/88, O2 95% on room air, P 95. PT transferred for CT scan and then to S4.
--- NOTE | 2024-09-12 08:03 | PC.NURSE ---
Pt transferred to S4 from S1, this technical writer was unable to return medications in pyxis. Pharmacy notified, this technical writer spoke with Keke Lpoez and the following medications were picked up from unit by pharmacy general manager to be returned to pharmacy: ativan 0.5mg, gabapentin 200mg (2 100mg capsules), hctz 12.5mg, hydralazine 25mg metoprolol 200mg (2 100mg tabs), lactaid 6,000 units (2 3,000 unit tabs), ditropan er 10mg (2 5mg tabs).
== END 2024-09-11 16:04 | disposition short-term general hospital (02) | DRG 885 ==
PROVIDERS: Admitting Provider Clinical Nurse Specialist Psychiatric/Mental Health, Adult; PCP Internal Medicine; Visit Provider Clinical Nurse Specialist Psychiatric/Mental Health, Adult
DX: F31.9 Bipolar disorder, unspecified (principal); F03.90 Unspecified dementia, unspecified severity, without behavioral disturbance, psychotic disturbance, mood disturbance, and anxiety; Z90.12 Acquired absence of left breast and nipple; Z85.3 Personal history of malignant neoplasm of breast; Z79.899 Other long term (current) drug therapy
CPT/HCPCS: 36415; 70450; 80053; 80061; 82947

== ENCOUNTER → 2024-09-10 12:18 | Outpatient (BNV) | payer MEDICARE, MEDICAID, SELFPAY | PROVIDERS: Admitting Provider Clinical Nurse Specialist Psychiatric/Mental Health, Adult; PCP Internal Medicine; Visit Provider Clinical Nurse Specialist Psychiatric/Mental Health, Adult | DX: F31.9 Bipolar disorder, unspecified (principal); F03.90 Unspecified dementia, unspecified severity, without behavioral disturbance, psychotic disturbance, mood disturbance, and anxiety | CPT/HCPCS: 90792; 99499 ==

== ENCOUNTER 2024-09-11 16:31 | Inpatient (IN) | payer MEDICARE, MEDICAID, SELFPAY ==
--- NOTE | 2024-09-11 15:13 | PM.IMHP ---
History of Present Illness Date of Service: 09/11/24 Chief Complaint: ams 89F PMH unspecified dementia, hypertension, hyperlipidemia, bipolar presented from [facility] with rapid response for unresponsiveness. On 09/08/2024 patient had a rapid response in the medical center for what appeared to have been due to vasovagal. At that time patient was found to have lost pulse and was coded for about 3 minutes with 1 epinephrine given. Quickly came back, was observed in the ICU for 1 day and then on med tele for 1 day and discharged back to [facility]. On day of current admission rapid response was called as patient was found in her chair unresponsive, this time her eyes were open and she was moving spontaneously, blood pressure was 160 over 80, blood sugar was normal, no loss of bowel or urine. patient was moved to bed and did shout out in pain, but remained unresponsive, unflinching. Review of Systems Review of Systems: Yes all other systems are reviewed and are negative [facility] Medical History Bipolar disorder with psychotic features Restless leg syndrome HDL deficiency HTN (hypertension) Surgical History H/O left mastectomy Social History Household Members: Other Housing: Senior Living Housing Other:: [facility] Do you presently have visiting nurse or other home services: No Comment: 1:1 sitter at bedside Patient Tobacco Use Status: Former Tobacco user Tobacco use type: Cigarette Cigarettes Per Day: 9 Years Smoked: 71 e-Cigarette/Vaping Use: Never Used Second Hand Smoke Exposure: Yes Substance Use Type: Unknown service: No Meds Allergies Allergy/AdvReac Type Severity Reaction Status Date / Time No Known Allergies Allergy Verified 09/07/24 15:15 Active Medications: Current Medications Acetaminophen (Acetaminophen 325 Mg Tablet) 650 mg PO Q6H PRN PRN Reason: Pain, Mild 1-3,fever,headache Calcium Carbonate (Calcium Carbonate 750 Mg Tab.Chew) 750 mg PO Q4H PRN PRN Reason: Heartburn Enoxaparin Sodium (Enoxaparin Sodium 40 Mg/0.4 Ml Syringe) 40 mg SUBCUT Q24H JHONNY Magnesium Hydroxide (Milk Of Magnesia 30 Ml Oral.Susp) 30 ml PO DAILY PRN PRN Reason: Constipation Melatonin (Melatonin 3 Mg Tablet) 6 mg PO BEDTIME PRN PRN Reason: Insomnia Sodium Chloride (0.9 % Sodium Chloride Flush 3 Ml Syringe) 3 ml IVFLUSH QSHIFT JHONNY Physical Exam Vital Signs and Narrative: frail appearing, unresponsive, eyes open, blinking spontansously but not to stimulation, Assessment and Plan (1) Bipolar disorder: Status: Acute Plan 89F PMH unspecified dementia, hypertension, hyperlipidemia, bipolar presented from [facility] with rapid response for unresponsiveness Episodic unresponsivess admit to tele, neuro eval, cth, eeg bipolar seroquel, ativan dvt prophylaxis - lovenox DNR/DNI - confirmed with HCPmihir given severity of recent events will need work up, expected to require atleast 2 midnights inpatient Quality Stroke Does the patient have a stroke diagnosis?: No VTE Prior VTE?: No VTE Risk Level:: Medical - moderate - high VTE Device Contraindication: Treatment Not Indicated VTE Drug Contraindication: Treatment Not Indicated
[2024-09-11 16:30] VITALS: BP 165/83; PULSE 87; RESP 18; TEMP 37.1; O2SAT 95
[2024-09-11] MEDS: 0.9 % Sodium Chloride Flush 3 ML SYRINGE IVFLUSH (17:27)
[2024-09-11 18:17] VITALS: BMI 18.5
[2024-09-11 19:31] VITALS: BP 183/89; PULSE 92; RESP 16; TEMP 36.7; O2SAT 95
[2024-09-11] MEDS: LORazepam 0.5 MG TABLET PO (22:31)
[2024-09-11] MEDS: QUEtiapine Fumarate 25 MG TABLET PO (22:31)
[2024-09-11 22:33] VITALS: BP 172/94; PULSE 100
[2024-09-11 23:39] VITALS: BP 184/92; PULSE 98; RESP 16; TEMP 37; O2SAT 95
[2024-09-12] VITALS (8 sets, daily range): BP systolic 151–185; BP diastolic 79–98; PULSE 84–100; RESP 16–18; TEMP 36.2–37; O2SAT 93–96
[2024-09-12] MEDS: LORazepam 2 MG/ML VIAL 1 MG IVPUSH (00:32)
[2024-09-12] MEDS: Labetalol HCL 100 MG/20 ML VIAL 10 MG IVPUSH (01:59)
[2024-09-12] MEDS: LORazepam 0.5 MG TABLET PO (06:15)
[2024-09-12] MEDS: Acetaminophen 325 MG TABLET 650 MG PO ×2 (06:15→12:22)
[2024-09-12] MEDS: 0.9 % Sodium Chloride Flush 3 ML SYRINGE IVFLUSH ×4 (06:16→21:19)
[2024-09-12 07:48] LABS: Hematocrit 38.6 % (37.0-47.0); Hemoglobin 12.6 g/dl (12.0-16.0); Mean Corpuscular HGB Conc 32.6 g/dl (31.0-35.0); Mean Corpuscular Hemoglobin 32.9 pg (27.0-33.0); Mean Corpuscular Volume 100.8 fL (80.0-98.0); Mean Platelet Volume 10.4 fL (9.4-12.3); Platelet Count 224 X10*3/uL (160-400); Red Blood Count 3.83 X10*6/uL (4.20-5.50); Red Cell Distribution Width 12.3 % (11.0-16.0); White Blood Count 9.6 X10*3/uL (4.8-10.8)
[2024-09-12 08:02] LABS: Alanine Aminotransferase 21 U/L (0-31); Albumin Level 4.1 g/dL (3.5-5.0); Alkaline Phosphatase 85 U/L (39-117); Anion Gap 21 (12-20); Aspartate Amino Transferase 28 U/L (5-31); Bilirubin Direct 0.1 mg/dL (0.0-0.5); Bilirubin Total 0.4 mg/dL (0.0-1.0); Blood Urea Nitrogen 31 mg/dL (9-16); Carbon Dioxide 22 mmol/L (22-29); Chloride 107 mmol/L (96-108); Creatinine Clr Calc Pharmacy 31.6; Estimated Glomerular Filt Rate 58; Glucose Random 76 mg/dL (60-115); Magnesium 2.2 mg/dL (1.6-2.6); Potassium 3.5 mmol/L (3.3-5.1); Sodium 146 mmol/L (135-145); Total Protein 7.6 g/dL (6.5-8.0)
[2024-09-12] MEDS: Enoxaparin Sodium 40 MG/0.4 ML SYRINGE SUBCUT (09:42)
--- NOTE | 2024-09-12 10:59 | P.PNIM_ITS ---
Subjective Subjective Date of Service: 09/12/24 Interval History: no complaints Physical Exam 2 Vital Signs: Vital Signs: Last Vital Signs Temp 97.2 F 09/12/24 06:33 Pulse 84 09/12/24 06:33 Resp 16 09/12/24 06:33 BP 164/79 H 09/12/24 06:33 Pulse Ox 95 09/12/24 06:33 O2 Del Method Room Air 09/12/24 06:33 BMI result Body Mass Index 18.5 Alert, oriented to person and place but not time, strange affect, conversive, answers questions appropriately about 50% of the time Objective Data Active Medications Acetaminophen (Acetaminophen 325 Mg Tablet) 650 mg PO Q6H PRN PRN Reason: Pain, Mild 1-3,fever,headache Last Admin: 09/12/24 06:15 Dose: 650 mg Documented By: YELENA Calcium Carbonate (Calcium Carbonate 750 Mg Tab.Chew) 750 mg PO Q4H PRN PRN Reason: Heartburn Enoxaparin Sodium (Enoxaparin Sodium 40 Mg/0.4 Ml Syringe) 40 mg SUBCUT Q24H [facility] Last Admin: 09/12/24 09:42 Dose: 40 mg Documented By: JENNIFER Lidocaine (Lidocaine 4 % Patch Adh..Patch) 1 patch TRANSDERMA DAILY [facility]; Protocol Lorazepam (Lorazepam 0.5 Mg Tablet) 0.5 mg PO Q8H [facility] Last Admin: 09/12/24 06:15 Dose: 0.5 mg Documented By: YELENA Magnesium Hydroxide (Milk Of Magnesia 30 Ml Oral.Susp) 30 ml PO DAILY PRN PRN Reason: Constipation Melatonin (Melatonin 3 Mg Tablet) 6 mg PO BEDTIME PRN PRN Reason: Insomnia Quetiapine Fumarate (Quetiapine Fumarate 25 Mg Tablet) 25 mg PO BEDTIME [facility] Last Admin: 09/11/24 22:31 Dose: 25 mg Documented By: CAROL Sodium Chloride (0.9 % Sodium Chloride Flush 3 Ml Syringe) 3 ml IVFLUSH QSHIFT [facility] Last Admin: 09/12/24 09:42 Dose: 3 ml Documented By: JENNIFER Labs 09/12/24 06:38 09/12/24 06:38 Labs: Laboratory Results - last 24 hr 09/12/24 06:38 MCV 100.8 H MCH 32.9 MCHC 32.6 RDW 12.3 Plt Count 224 MPV 10.4 Absolute Nucleated RBC 0.000 Nucleated RBC % (auto) 0.0 Anion Gap 21 H Estim Creat Clear Calc 31.6 Estimated GFR 58 Random Glucose 76 Calcium 10.0 Magnesium 2.2 Total Bilirubin 0.4 Direct Bilirubin 0.1 AST 28 ALT 21 Alkaline Phosphatase 85 Total Protein 7.6 Albumin 4.1 Assessment and Plan (1) Bipolar disorder: Status: Acute Plan 89F PMH unspecified dementia, hypertension, hyperlipidemia, bipolar presented from [facility] psych with rapid response for unresponsiveness Episodic unresponsivess Etiology includes seizures, catatonia, events from 09/08/2024 was likely treated vasovagal appears to have been different from event from 09/11/2024 Follow up EEG, neuro bipolar seroquel, ativan dvt prophylaxis - lovenox DNR/DNI - confirmed with mihir MACDONALD reason for continued hospitalization:neuro work up Quality Stroke Does the patient have a stroke diagnosis?: No VTE Prior VTE?: No VTE Risk Level:: Medical - moderate - high VTE Device Contraindication: Treatment Not Indicated VTE Drug Contraindication: Treatment Not Indicated
--- NOTE | 2024-09-12 11:55 | MHC.CM.PN ---
CM assessment completed w/ daughter/HCPs via telephone. IMM delivered. Daughter Luna is primary HCP, but family requests that Ce, alternate HCP, be used as primary contact for now as Ce has chemo frequently. Patient is LTC resident @ [facility]. [place] [facility] [place] [facility] [place]. Ambulates w/ walker. PCP ?Adi Capellan HCP on file and verified DP: Will need CARE consult when medically cleared. Return to [facility]ais-psych vs return to LTC via BLS. Referral has been sent to [facility] who will follow for return. CM will continue to follow.
[2024-09-12] MEDS: Lidocaine 4 % Patch ADH..PATCH 1 PATCH TRANSDERMA (12:21)
--- NOTE | 2024-09-12 13:29 | PHA.MEDREC ---
Pharmacy Consult ? Medication Reconciliation Pharmacy has completed the medication reconciliation. patient transferred from ... med rec completed via discharge note
--- NOTE | 2024-09-12 15:09 | MHC.CLN ---
NUTRITION PATIENT WITH RECENT POOR PO. ADDING ENSURE TID TO PROVIDE 1050 KCALS, 60 G PROTEIN.
[2024-09-12] MEDS: LORazepam 2 MG/ML VIAL 0.5 MG IVPUSH (17:21)
[2024-09-12] MEDS: Labetalol HCL 100 MG/20 ML VIAL 20 MG IVPUSH (21:19)
[2024-09-13] VITALS (8 sets, daily range): BP systolic 149–182; BP diastolic 50–80; PULSE 84–96; RESP 16–18; TEMP 36.4–36.7; O2SAT 94–97; BMI 18.5
--- NOTE | 2024-09-13 | EEG_ITS ---
This is a 16 channel EEG with an EKG lead. The patient is reported awake during the tracing. Background EEG rhythm is 6 to 8 hertz, 5 to 100 microvolt posteriorly and lower amplitude fast anteriorly. Intermittently right temporal sharp waves were noted. Some lead and muscle artifacts were noted. Photic stimulation did not produce any significant abnormality and hyperventilation was not performed. Cardiac lead did not reveal any significant abnormality. IMPRESSION: Abnormal EEG revealing generalized slowing, but also right hemispheric abnormalities suggestive of tendency for seizure disorder. MD VALENTINO Gordillo/ECCILIA / [phone]
[2024-09-13] MEDS: LORazepam 2 MG/ML VIAL 0.5 MG IVPUSH ×3 (00:15→22:07)
[2024-09-13] MEDS: Labetalol HCL 100 MG/20 ML VIAL 20 MG IVPUSH (04:09)
--- NOTE | 2024-09-13 09:12 | P.PNIM_ITS ---
Subjective Subjective Date of Service: 09/13/24 Interval History: no complaints Physical Exam 2 Vital Signs: Vital Signs: Last Vital Signs Temp 97.9 F 09/13/24 07:27 Pulse 84 09/13/24 07:27 Resp 18 09/13/24 07:27 BP 162/50 H 09/13/24 07:27 Pulse Ox 95 09/13/24 07:27 O2 Del Method Room Air 09/13/24 07:27 BMI result Body Mass Index 18.5 Alert, oriented to person and place but not time, strange affect, conversive, answers questions appropriately about 50% of the time Objective Data Active Medications Acetaminophen (Acetaminophen 325 Mg Tablet) 650 mg PO Q6H PRN PRN Reason: Pain, Mild 1-3,fever,headache Last Admin: 09/12/24 12:22 Dose: 650 mg Documented By: JENNIFER Amlodipine Besylate (Amlodipine Besylate 10 Mg Tablet) 10 mg PO DAILY [facility]; Protocol Calcium Carbonate (Calcium Carbonate 750 Mg Tab.Chew) 750 mg PO Q4H PRN PRN Reason: Heartburn Divalproex Sodium (Divalproex Sodium 250 Mg Tablet.Dr) 250 mg PO BEDTIME [facility] Enoxaparin Sodium (Enoxaparin Sodium 40 Mg/0.4 Ml Syringe) 40 mg SUBCUT Q24H [facility] Last Admin: 09/12/24 09:42 Dose: 40 mg Documented By: JENNIFER Lidocaine (Lidocaine 4 % Patch Adh..Patch) 1 patch TRANSDERMA DAILY [facility]; Protocol Last Admin: 09/12/24 12:21 Dose: 1 patch Documented By: JENNIFER Lorazepam (Lorazepam 0.5 Mg Tablet) 0.5 mg PO Q8H [facility] Last Admin: 09/13/24 00:19 Dose: Not Given Documented By: JOSH Non-Admin Reason: Patient Refused Lorazepam (Lorazepam 2 Mg/Ml Vial) 0.5 mg IVPUSH Q6H PRN PRN Reason: Anxiety Last Admin: 09/13/24 00:15 Dose: 0.5 mg Documented By: JOSH Magnesium Hydroxide (Milk Of Magnesia 30 Ml Oral.Susp) 30 ml PO DAILY PRN PRN Reason: Constipation Melatonin (Melatonin 3 Mg Tablet) 6 mg PO BEDTIME PRN PRN Reason: Insomnia Quetiapine Fumarate (Quetiapine Fumarate 25 Mg Tablet) 25 mg PO BEDTIME [facility] Last Admin: 09/12/24 21:17 Dose: Not Given Documented By: JOSH Non-Admin Reason: Patient Refused Sodium Chloride (0.9 % Sodium Chloride Flush 3 Ml Syringe) 3 ml IVFLUSH QSHIFT [facility] Last Admin: 09/12/24 21:19 Dose: 3 ml Documented By: JOSH Labs 09/12/24 06:38 09/12/24 06:38 Assessment and Plan (1) Bipolar disorder: Status: Acute Plan 89F PMH unspecified dementia, hypertension, hyperlipidemia, bipolar presented from [facility] psych with rapid response for unresponsiveness Episodic unresponsivess Etiology includes seizures, catatonia, events from 09/08/2024 was likely treated vasovagal appears to have been different from event from 09/11/2024 Follow up EEG, neuro bipolar seroquel, ativan dvt prophylaxis - lovenox DNR/DNI - confirmed with HCPmihir reason for continued hospitalization:neuro work up Quality Stroke Does the patient have a stroke diagnosis?: No VTE Prior VTE?: No VTE Risk Level:: Medical - moderate - high VTE Device Contraindication: Treatment Not Indicated VTE Drug Contraindication: Treatment Not Indicated
[2024-09-13] MEDS: Lidocaine 4 % Patch ADH..PATCH 1 PATCH TRANSDERMA (09:47)
[2024-09-13] MEDS: 0.9 % Sodium Chloride Flush 3 ML SYRINGE IVFLUSH ×3 (09:47→22:07)
[2024-09-13] MEDS: Enoxaparin Sodium 40 MG/0.4 ML SYRINGE SUBCUT (09:48)
[2024-09-13] MEDS: amLODIPine Besylate 10 MG TABLET PO (09:48)
--- NOTE | 2024-09-13 10:26 | PM.NEUROCN ---
History of Present Illness Data of Consult Service Date: 09/13/24 Primary Care Provider: Adi Capellan MD [facility] Reason for consult: Encephalopathy 89 years old woman transferred from geriatric psychiatry side of the hospital to regular floor after she was found unresponsive in a chair. Her blood pressure was not low and there was no obvious explanation. Her eyes were open and she was not responding. Apparently she had somewhat similar episode prior to that for which she was coded. She did not know what I was talking about when I asked her about why she was in the hospital. Review of Systems Review of Systems: No recent cold or flu-like illness or convulsion PMFSH Past Medical History Medical History Bipolar disorder with psychotic features Restless leg syndrome HDL deficiency HTN (hypertension) Surgical History Surgical History H/O left mastectomy Social History Social History Household Members: Other Housing: Group Home Housing Other:: [facility] Do you presently have visiting nurse or other home services: No Comment: 1:1 Sitter Present Patient Tobacco Use Status: Former Tobacco user Tobacco use type: Cigarette Cigarettes Per Day: 9 Years Smoked: 71 e-Cigarette/Vaping Use: Never Used Second Hand Smoke Exposure: Yes Use of substances other than those prescribed or required for medical reasons: Unknown Substance Use Type: Unknown Currently Displaying Signs/Symptoms of Drug Intoxication Withdrawal: No Advance Directives: No Advance Directives Information Provided: Yes Advance Directives on File: Yes Advance Directives Date on File: 09/11/24 Do you have a plan to hurt others: No Plan Recently lost weight without trying: Unsure How much weight loss: Unsure Eating poorly because of decreased appetite: Yes Nutrition screen score: 5 Nutrition Risks: Poor intake 0-25% >4 days Patient : No : No Poor oral hygiene: No service: No Meds Allergies Allergy/AdvReac Type Severity Reaction Status Date / Time No Known Allergies Allergy Verified 09/07/24 15:15 Active Medications: Current Medications Acetaminophen (Acetaminophen 325 Mg Tablet) 650 mg PO Q6H PRN PRN Reason: Pain, Mild 1-3,fever,headache Last Admin: 09/12/24 12:22 Dose: 650 mg Amlodipine Besylate (Amlodipine Besylate 10 Mg Tablet) 10 mg PO DAILY [facility]; Protocol Last Admin: 09/13/24 09:48 Dose: 10 mg Calcium Carbonate (Calcium Carbonate 750 Mg Tab.Chew) 750 mg PO Q4H PRN PRN Reason: Heartburn Divalproex Sodium (Divalproex Sodium 250 Mg Tablet.Dr) 250 mg PO BEDTIME [facility] Enoxaparin Sodium (Enoxaparin Sodium 40 Mg/0.4 Ml Syringe) 40 mg SUBCUT Q24H [facility] Last Admin: 09/13/24 09:48 Dose: 40 mg Lidocaine (Lidocaine 4 % Patch Adh..Patch) 1 patch TRANSDERMA DAILY [facility]; Protocol Last Admin: 09/13/24 09:47 Dose: 1 patch Lorazepam (Lorazepam 0.5 Mg Tablet) 0.5 mg PO Q8H [facility] Last Admin: 09/13/24 09:36 Dose: Not Given Lorazepam (Lorazepam 2 Mg/Ml Vial) 0.5 mg IVPUSH Q6H PRN PRN Reason: Anxiety Last Admin: 09/13/24 00:15 Dose: 0.5 mg Magnesium Hydroxide (Milk Of Magnesia 30 Ml Oral.Susp) 30 ml PO DAILY PRN PRN Reason: Constipation Melatonin (Melatonin 3 Mg Tablet) 6 mg PO BEDTIME PRN PRN Reason: Insomnia Quetiapine Fumarate (Quetiapine Fumarate 25 Mg Tablet) 25 mg PO BEDTIME [facility] Last Admin: 09/12/24 21:17 Dose: Not Given Sodium Chloride (0.9 % Sodium Chloride Flush 3 Ml Syringe) 3 ml IVFLUSH QSHIFT [facility] Last Admin: 09/13/24 09:47 Dose: 3 ml Physical Exam Vital Signs: Vital Signs: Last Vital Signs Temp 97.9 F 09/13/24 07:27 Pulse 84 09/13/24 07:27 Resp 18 09/13/24 07:27 BP 162/50 H 09/13/24 09:48 Pulse Ox 95 09/13/24 07:27 O2 Del Method Room Air 09/13/24 07:27 BMI result Body Mass Index 18.5 Neuro: Other: She is alert and awake was busy eating her breakfast. She did not know where she was and did not understand the some of the questions I was asking like what has happened and why she was here. She was following simple commands. Comprehension was intact. Face was symmetrical. Visual ospina are full. Facial expression were flat. There was no obvious focal arm or leg weakness. Plantars were flat. Results Labs 09/12/24 06:38 09/12/24 06:38 Labs: CT scan of brain revealed moderately severe diffuse cerebral atrophy and moderately severe chronic microvascular ischemic changes. EEG revealed generalized slowing a right hemispheric irritability. 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 My recommendation is to add levetiracetam 250 mg twice a day to her regimen. Procedures Date of Service Date of Service: 09/13/24
--- NOTE | 2024-09-13 11:34 | MHC.SL.SWA ---
Speech Pathologist Impression: Mild Oral Phase Dysphagia, Risk of Aspiration d/t Confusion Risk of Aspiration Due to: Neurological Condition Poor PO Intake Reduced Cognition Dysphasia Diet Status:Downgrade to NDD3 Liquid Consistency and Strategies for Safe Swallow: Liquid Intake Recommendation: Thin Liquid Intake Strategies: Small Sips Solid Food Consistency: Dietary Recommendations: Chopped/Advanced (NDD3) Additional Modifications to Solid Foods: Patient presents w/ mild oral phase dysphagia, characterized by slowed mastication and pocketing of solids. She is able to clear residue when cued to alternate with sips of liquid. Patient is able to feed herself, but is confused and becomes easily distracted. She will need assistance with tray set up and throughout meal. Oral Medication Intake: Whole with Liquid Please contact the pharmacy regarding appropriate crushable or liquid drug formulations that are available whenever modified delivery is recommended. Compensatory Strategies and Precautions to be Taken for Safe Swallow: Sitting Upright (90 deg) Double Swallow Small Bites and Sips Alternate Liquids/Solids Rate of Ingestion Change Avoid Specific Foods Supervision While Eating and Drinking for Safe Swallow: Total Supervision (1:1) Foods to Avoid: [place] [facility] hard or difficult to chew solids Swallowing Recommended Treatments: Compens. Strategy Educat. Recommendation for Speech: Inpatient Speech Therapy Comment: SHEET METAL DUCT INSTALLER APPRENTICE to f/u 1x to monitor tolerance of recommended diet and provide education RE: feeding strategies Frequency/Duration: Date Range for Service Req: Timeline to reassess: Measuring Machine Tender Clinican/Clinical Fellow: No Supervisory Statement: I have reviewed and agree with the student/clinical fellow's documentation: N/A Speech Language Pathologist: Carmen Shabazz M.A., CCC-SHEET METAL DUCT INSTALLER APPRENTICE
--- NOTE | 2024-09-13 13:33 | MHC.CLN ---
NUTRITION DIET=REGULAR, CHOPPED WITH THIN LIQUIDS PER BENDER HELPER TODAY. ENSURE TID PROVIDES 1050 KCALS, 60 G PROTEIN. QUALIFIES MODERATELY MALNOURISHED IN THE CONTEXT OF CHRONIC ILLNESS. ORIGINAL ADM TO [facility], HAS BEEN TO ICU FOR UNRESPONSIVENESS, AND NOW ON MED/TELE UNIT. PO INTAKE USUALLY POOR. FOLLOW FOR PO INTAKE AND WEIGHT. SEE CLINICAL NUTRITION ASSESSMENT 09/13/24.
[2024-09-13] MEDS: LORazepam 0.5 MG TABLET PO (14:29)
[2024-09-13] MEDS: levETIRAcetam 250 MG TABLET PO ×2 (14:29→23:12)
--- NOTE | 2024-09-13 16:18 | MHC.CM.PN ---
Per rounds and EMR review, pt is not ready to DC, she is being worked up for unresponsive episode. DCP: either return to [facility] or to [facility]. CM to follow for DC needs.
[2024-09-13] MEDS: Divalproex Sodium 250 MG TABLET.DR PO (23:12)
[2024-09-13] MEDS: QUEtiapine Fumarate 25 MG TABLET PO (23:13)
[2024-09-14 04:00] VITALS: BP 137/80; PULSE 96; RESP 18; TEMP 36.7; O2SAT 97
--- NOTE | 2024-09-14 05:20 | PC.NURSE ---
2300 sitter placed at bedside due to pt increased agitation, anxiousness and restlessness. PT attempting to climb out of bed and difficulty with redirection. Pt becoming combative at times.
[2024-09-14 08:00] VITALS: BP 127/70; PULSE 93; RESP 14; TEMP 36.9; O2SAT 97
--- NOTE | 2024-09-14 10:11 | HO.PM.IMPN ---
Subjective Subjective Date of Service: 09/14/24 Interval History: no complaints Physical Exam Vital Signs: Vital Signs: Last Vital Signs Temp 98.5 F 09/14/24 08:00 Pulse 93 09/14/24 08:00 Resp 14 09/14/24 08:00 BP 127/70 09/14/24 08:00 Pulse Ox 97 09/14/24 08:00 O2 Del Method Room Air 09/14/24 08:00 BMI result Body Mass Index 18.5 Neuro: Other: She is alert and awake was busy eating her breakfast. She did not know where she was and did not understand the some of the questions I was asking like what has happened and why she was here. She was following simple commands. Comprehension was intact. Face was symmetrical. Visual ospina are full. Facial expression were flat. There was no obvious focal arm or leg weakness. Plantars were flat. Objective Data Active Medications Acetaminophen (Acetaminophen 325 Mg Tablet) 650 mg PO Q6H PRN PRN Reason: Pain, Mild 1-3,fever,headache Last Admin: 09/12/24 12:22 Dose: 650 mg Documented By: JENNIFER Amlodipine Besylate (Amlodipine Besylate 10 Mg Tablet) 10 mg PO DAILY [facility]; Protocol Last Admin: 09/13/24 09:48 Dose: 10 mg Documented By: JENNIFER Calcium Carbonate (Calcium Carbonate 750 Mg Tab.Chew) 750 mg PO Q4H PRN PRN Reason: Heartburn Divalproex Sodium (Divalproex Sodium 250 Mg Tablet.Dr) 250 mg PO BEDTIME [facility] Last Admin: 09/13/24 23:12 Dose: 250 mg Documented By: KADI Enoxaparin Sodium (Enoxaparin Sodium 40 Mg/0.4 Ml Syringe) 40 mg SUBCUT Q24H [facility] Last Admin: 09/13/24 09:48 Dose: 40 mg Documented By: JENNIFER Levetiracetam (Levetiracetam 250 Mg Tablet) 250 mg PO BID [facility] Last Admin: 09/13/24 23:12 Dose: 250 mg Documented By: KADI Lidocaine (Lidocaine 4 % Patch Adh..Patch) 1 patch TRANSDERMA DAILY [facility]; Protocol Last Admin: 09/13/24 09:47 Dose: 1 patch Documented By: JENNIFER Lorazepam (Lorazepam 0.5 Mg Tablet) 0.5 mg PO Q8H [facility] Last Admin: 09/13/24 23:15 Dose: Not Given Documented By: KADI Non-Admin Reason: Previously Administered Lorazepam (Lorazepam 2 Mg/Ml Vial) 0.5 mg IVPUSH Q6H PRN PRN Reason: Anxiety Last Admin: 09/13/24 22:07 Dose: 0.5 mg Documented By: KADI Magnesium Hydroxide (Milk Of Magnesia 30 Ml Oral.Susp) 30 ml PO DAILY PRN PRN Reason: Constipation Melatonin (Melatonin 3 Mg Tablet) 6 mg PO BEDTIME PRN PRN Reason: Insomnia Quetiapine Fumarate (Quetiapine Fumarate 25 Mg Tablet) 25 mg PO BEDTIME [facility] Last Admin: 09/13/24 23:13 Dose: 25 mg Documented By: KADI Sodium Chloride (0.9 % Sodium Chloride Flush 3 Ml Syringe) 3 ml IVFLUSH QSHIFT [facility] Last Admin: 09/13/24 22:07 Dose: 3 ml Documented By: KADI Labs 09/12/24 06:38 09/12/24 06:38 Assessment and Plan (1) Bipolar disorder: Status: Acute Plan 89F PMH unspecified dementia, hypertension, hyperlipidemia, bipolar presented from [facility] psych with rapid response for unresponsiveness Episodic unresponsivess Etiology includes seizures, catatonia, events from 09/08/2024 was likely treated vasovagal appears to have been different from event from 09/11/2024 EEG with predisposition for seizure, neuro appreciated started on keppra 250mg bid will medically clear, care team eval bipolar seroquel, ativan dvt prophylaxis - lovenox DNR/DNI - confirmed with HCPmihir reason for continued hospitalization:care team eval Quality Stroke Does the patient have a stroke diagnosis?: No VTE Prior VTE?: No VTE Risk Level:: Medical - moderate - high VTE Device Contraindication: Treatment Not Indicated VTE Drug Contraindication: Treatment Not Indicated
--- NOTE | 2024-09-14 10:45 | PC.NURSE ---
Patient refusing to take morning medications. Patient refusing to eat breakfast. MD aware. Multiple attempts to encourage patient to get OOB to chair and educated on the importance of her medications. Patient suspicious and irritated when trying to administer her medications. Refusing care intermittently. Bed alarm on and camera at bedside for safety.
[2024-09-14 12:00] VITALS: BP 125/63; PULSE 88; RESP 14; TEMP 36.4; O2SAT 95
[2024-09-14] MEDS: 0.9 % Sodium Chloride Flush 3 ML SYRINGE IVFLUSH ×2 (13:54→15:51)
--- NOTE | 2024-09-14 14:33 | MHC.SLORD ---
Speech Language Pathology Order Status: RN consulted, pt has been refusing PO today. SUPERVISOR FELTING attempted dysphagia treatment, pt politely refused stating I am sleeping right now . SUPERVISOR FELTING continues to follow.
[2024-09-14 15:53] VITALS: BP 145/79; PULSE 95; RESP 22; TEMP 36.5; O2SAT 96
[2024-09-14] MEDS: LORazepam 2 MG/ML VIAL 1 MG IVPUSH (16:13)
[2024-09-14 20:00] VITALS: BP 145/79; PULSE 114; RESP 18; TEMP 36.4; O2SAT 98
[2024-09-14 23:54] VITALS: BP 149/90; PULSE 71; RESP 18; TEMP 36.4; O2SAT 95
[2024-09-15] MEDS: Acetaminophen 325 MG TABLET 650 MG PO ×2 (00:22→09:21)
[2024-09-15 03:40] VITALS: BP 155/78; PULSE 85; RESP 18; TEMP 36.3; O2SAT 96
[2024-09-15] MEDS: Morphine Sulfate 2 MG/ML CARTRIDGE IVPUSH (04:50)
[2024-09-15 08:08] VITALS: BP 120/58; PULSE 91; RESP 12; TEMP 36.6; O2SAT 93
[2024-09-15 09:21] VITALS: BP 120/58
[2024-09-15] MEDS: levETIRAcetam 250 MG TABLET PO (09:21)
[2024-09-15] MEDS: amLODIPine Besylate 10 MG TABLET PO (09:21)
[2024-09-15] MEDS: LORazepam 0.5 MG TABLET PO ×2 (09:21→15:06)
[2024-09-15] MEDS: Lidocaine 4 % Patch ADH..PATCH 1 PATCH TRANSDERMA (09:22)
[2024-09-15] MEDS: 0.9 % Sodium Chloride Flush 3 ML SYRINGE IVFLUSH (09:22)
[2024-09-15] MEDS: Nicotine 14 MG PATCH.TD24 TRANSDERMA (09:31)
[2024-09-15] MEDS: Enoxaparin Sodium 40 MG/0.4 ML SYRINGE SUBCUT (09:32)
--- NOTE | 2024-09-15 10:25 | HO.PM.IMPN ---
Subjective Subjective Date of Service: 09/15/24 Interval History: no complaints Physical Exam Vital Signs: Vital Signs: Last Vital Signs Temp 97.8 F 09/15/24 08:08 Pulse 91 09/15/24 08:08 Resp 12 09/15/24 08:08 BP 120/58 L 09/15/24 09:21 Pulse Ox 93 09/15/24 08:08 O2 Del Method Room Air 09/15/24 08:08 BMI result Body Mass Index 18.5 Neuro: Other: She is alert and awake was busy eating her breakfast. She did not know where she was and did not understand the some of the questions I was asking like what has happened and why she was here. She was following simple commands. Comprehension was intact. Face was symmetrical. Visual ospina are full. Facial expression were flat. There was no obvious focal arm or leg weakness. Plantars were flat. Objective Data Active Medications Acetaminophen (Acetaminophen 325 Mg Tablet) 650 mg PO Q6H PRN PRN Reason: Pain, Mild 1-3,fever,headache Last Admin: 09/15/24 09:21 Dose: 650 mg Documented By: KAYLIN Amlodipine Besylate (Amlodipine Besylate 10 Mg Tablet) 10 mg PO DAILY [facility]; Protocol Last Admin: 09/15/24 09:21 Dose: 10 mg Documented By: KAYLIN Calcium Carbonate (Calcium Carbonate 750 Mg Tab.Chew) 750 mg PO Q4H PRN PRN Reason: Heartburn Divalproex Sodium (Divalproex Sodium 250 Mg Tablet.Dr) 250 mg PO BEDTIME [facility] Last Admin: 09/14/24 21:10 Dose: Not Given Documented By: ERICK Non-Admin Reason: Patient Refused Enoxaparin Sodium (Enoxaparin Sodium 40 Mg/0.4 Ml Syringe) 40 mg SUBCUT Q24H [facility] Last Admin: 09/15/24 09:32 Dose: 40 mg Documented By: KYALIN Levetiracetam (Levetiracetam 250 Mg Tablet) 250 mg PO BID [facility] Last Admin: 09/15/24 09:21 Dose: 250 mg Documented By: KAYLIN Lidocaine (Lidocaine 4 % Patch Adh..Patch) 1 patch TRANSDERMA DAILY [facility]; Protocol Last Admin: 09/15/24 09:22 Dose: 1 patch Documented By: KAYLIN Lorazepam (Lorazepam 0.5 Mg Tablet) 0.5 mg PO Q8H [facility] Last Admin: 09/15/24 09:21 Dose: 0.5 mg Documented By: KAYLIN Lorazepam (Lorazepam 2 Mg/Ml Vial) 0.5 mg IVPUSH Q6H PRN PRN Reason: Anxiety Last Admin: 09/13/24 22:07 Dose: 0.5 mg Documented By: KADI Magnesium Hydroxide (Milk Of Magnesia 30 Ml Oral.Susp) 30 ml PO DAILY PRN PRN Reason: Constipation Melatonin (Melatonin 3 Mg Tablet) 6 mg PO BEDTIME PRN PRN Reason: Insomnia Nicotine (Nicotine 14 Mg Patch.Td24) 14 mg TRANSDERMA DAILY [facility] Last Admin: 09/15/24 09:31 Dose: 14 mg Documented By: KAYLIN Quetiapine Fumarate (Quetiapine Fumarate 25 Mg Tablet) 25 mg PO BEDTIME [facility] Last Admin: 09/14/24 21:10 Dose: Not Given Documented By: ERICK Non-Admin Reason: Patient Refused Sodium Chloride (0.9 % Sodium Chloride Flush 3 Ml Syringe) 3 ml IVFLUSH QSHIFT [facility] Last Admin: 09/15/24 09:22 Dose: 3 ml Documented By: KAYLIN Labs 09/12/24 06:38 09/12/24 06:38 Assessment and Plan (1) Bipolar disorder: Status: Acute Plan 89F PMH unspecified dementia, hypertension, hyperlipidemia, bipolar presented from [facility] with rapid response for unresponsiveness Episodic unresponsivess Etiology includes seizures, catatonia, events from 09/08/2024 was likely severe vasovagal appears to have been different from events from 09/11/2024 and 09/14/24 which were more consistent with seizure vs behavioral EEG with predisposition for seizure, neuro appreciated started on keppra 250mg bid medically cleared, care team appreciated - bed search bipolar seroquel, ativan dvt prophylaxis - lovenox DNR/DNI - confirmed with mihir MACDONALD reason for continued hospitalization: bed search Quality Stroke Does the patient have a stroke diagnosis?: No VTE Prior VTE?: No VTE Risk Level:: Medical - moderate - high VTE Device Contraindication: Treatment Not Indicated VTE Drug Contraindication: Treatment Not Indicated
--- NOTE | 2024-09-15 10:40 | PM.DS ---
DS: Providers Provider Date of Service: 09/15/24 Date of admission: 09/11/24 16:31 Date of discharge: 09/15/24 Primary care physician: Adi Capellan MD Consults: 09/11/24 15:07 Consult to Neurology Routine Consulting Provider: [facility] Reason for consultation: episodic AMS 09/11/24 15:35 Consult for Sitter Routine Reason for consultation: geripsych 09/14/24 10:08 Inpt CARE Team Crisis Consult Routine Comment: Reason for consultation: medically cleared DS: Diagnosis Discharge Diagnosis (1) Bipolar disorder: Status: Acute DS: Summary Hospital Course Hospital Course: from initial hpi: 89F PMH unspecified dementia, hypertension, hyperlipidemia, bipolar presented from [facility] with rapid response for unresponsiveness. On 09/08/2024 patient had a rapid response in [facility] for what appeared to have been due to vasovagal. At that time patient was found to have lost pulse and was coded for about 3 minutes with 1 epinephrine given. Quickly came back, was observed in the ICU for 1 day and then on med tele for 1 day and discharged back to [facility]. On day of current admission rapid response was called as patient was found in her chair unresponsive, this time her eyes were open and she was moving spontaneously, blood pressure was 160 over 80, blood sugar was normal, no loss of bowel or urine. patient was moved to bed and did shout out in pain, but remained unresponsive, unflinching. hospital course: Patient was admitted for an episode of unresponsiveness. Differential on etiology include seizures, catatonia. This event seems to be different than the event of 09/08/2024 which was more likely vasovagal. The event of the current admission was more consistent with seizure or unspecified dementia with behavior disturbances. Was seen by Neurology, EEG with predisposition for seizure though no overt seizure. Neurology recommended treating his epilepsy with Keppra 250 mg b.i.d.. Patient did have another brief episode on 09/14/24 which quickly abated. Patient was seen by care team who recommended inpatient psychiatric admission to which patient will be discharged. Patient noted to be low normal blood pressures, many blood pressure meds have been held and blood pressure now stable. For bipolar disorder was continued on Seroquel, Depakote and Ativan. For nicotine dependence started on Nicoderm. For dry eyes given artificial tears. Time Attestation Discharge Coordination Time (in mins): 37 Quality: Safe Use of Opioids Does Pt have an Active Cancer Diagnosis on the Problem List?: No Quality: Stroke Does the patient have a stroke diagnosis?: No Physical Exam Vital Signs: Vital Signs: Last Vital Signs Temp 97.8 F 09/15/24 08:08 Pulse 91 09/15/24 08:08 Resp 12 09/15/24 08:08 BP 120/58 L 09/15/24 09:21 Pulse Ox 93 09/15/24 08:08 O2 Del Method Room Air 09/15/24 08:08 BMI result Body Mass Index 18.5 Neuro: Other: She is alert and awake was busy eating her breakfast. She did not know where she was and did not understand the some of the questions I was asking like what has happened and why she was here. She was following simple commands. Comprehension was intact. Face was symmetrical. Visual ospina are full. Facial expression were flat. There was no obvious focal arm or leg weakness. Plantars were flat. Discharge Plan Discharge Anticipated Discharge Date/Time: 09/15/24 10:37 Patient Disposition: Xfer Psychiatric Hosp Discharge Diagnosis: seizure Referrals: Melania Anguiano MD [Physician] - 1 Week Adi Capellan MD [Primary Care Provider] - 1 Week Discharge Medications: New nicotine 14 mg/24 hr Patch 24 Hour 14 mg transdermal DAILY Qty: 0 0RF levetiracetam 250 mg Tablet 250 mg PO BID Qty: 0 0RF Artificial Tears(bs-chbs-raqg) 1-0.2-0.2 % Drops 2 drp ophthalmic (eye) Q4H PRN (Reason: Dry Eyes) Qty: 0 0RF Continued quetiapine 25 mg Tablet 25 mg PO BID PRN (Reason: agitation, aggression) Qty: 0 0RF ropinirole 1 mg Tablet 1 mg PO BEDTIME Qty: 0 0RF divalproex 250 mg Tablet,Delayed Release (Dr/Ec) 250 mg PO BEDTIME Qty: 0 0RF famotidine 20 mg Tablet 20 mg PO DAILY@0630 Qty: 0 0RF lorazepam 0.5 mg Tablet 0.5 mg PO TID Qty: 0 0RF amlodipine 10 mg Tablet 10 mg PO DAILY Qty: 0 0RF Protocol: Hold for SBP< HOLD for SBP < : 90 lactase [Dairy-Aid] 3,000 unit Tablet 3,000 unit PO TIDWM Qty: 0 0RF docusate sodium 100 mg Capsule 100 mg PO DAILY PRN (Reason: Constipation) Qty: 0 0RF Polyvinyl Alcoh 1 drp ophthalmic (eye) TID Qty: 0 0RF Vitamin D3 125 1 tab PO DAILY Qty: 0 0RF Discontinued atorvastatin 10 mg Tablet 10 mg PO BEDTIME Qty: 0 0RF metoprolol succinate 100 mg Tablet Extended Release 24 Hr 200 mg PO DAILY Qty: 0 0RF Protocol: Hold for SBP/HR < HOLD for SBP < : 90 HOLD for HR < : 60 hydralazine 25 mg Tablet 25 mg PO TID Qty: 0 0RF Protocol: Hold for SBP< HOLD for SBP < : 90 oxybutynin chloride 5 mg Tablet Extended Release 24hr 10 mg PO DAILY Qty: 0 0RF gabapentin 100 mg Capsule 200 mg PO TID Qty: 0 0RF lisinopril 40 mg Tablet 40 mg PO DAILY Qty: 0 0RF Protocol: Hold for SBP< HOLD for SBP < : 90 hydrochlorothiazide 12.5 mg Tablet 12.5 mg PO DAILY Qty: 0 0RF Protocol: Hold for SBP< HOLD for SBP < : 90 Diet: NDD3 solids, thin liq Activity on Discharge: As tolerated Stand Alone Forms: Patient Portal Discharge page Print Language: Mohawk Care Plan Goals: manage ams episodes Health Concerns: unresponsive episodes Plan of Treatment: treat as epilepsy, started on keppra, follow up neuro many meds held for low bp Assessment: see above
--- NOTE | 2024-09-15 10:51 | MHC.SL.SWA ---
Speech Pathologist Impression: Risk of Aspiration Due to: Neurological Condition Poor PO Intake Reduced Cognition Dysphasia Diet Status: Continue on Chopped/Advanced (NDD3) with Thin Liquids, pills whole with liquid Liquid Consistency and Strategies for Safe Swallow: Liquid Intake Recommendation: Thin Liquid Intake Strategies: Small Sips Solid Food Consistency: Dietary Recommendations: Chopped/Advanced (NDD3) Additional Modifications to Solid Foods: Offer food/snacks in between meals (take items from meal tray to be offered at a later time). Patient may benefit from having one food item at a time v. entire tray present and in front of her. Patient likely to refuse food, persist with offering and encourage. Oral Medication Intake: Whole with Liquid Please contact the pharmacy regarding appropriate crushable or liquid drug formulations that are available whenever modified delivery is recommended. Compensatory Strategies and Precautions to be Taken for Safe Swallow: Sitting Upright (90 deg) Liquids from Cup Liquids from Straw Alternate Liquids/Solids Supervision While Eating and Drinking for Safe Swallow: Total Supervision (1:1) Foods to Avoid: [place] tough or hard to chew solids Swallowing Recommended Treatments: Compens. Strategy Educat. Recommendation for Speech: Inpatient Speech Therapy Comment: Patient seen at the conclusion of breakfast today, with GENERAL HANDLING SUPERVISOR present who had been feeding and encouraging the patient to eat. Patient was awake and alert, seated upright in bed. GENERAL HANDLING SUPERVISOR reported patient had eaten a little but also had taken most of her Ensure. Most food on tray untouched on perusal. COLLAR TRIMMER offered patient bites of sliced banana which was reluctantly accepted. With food in mouth, patient noted to grimace, say no good, but then continued to masticate the banana slice for a prolonged period then swallow. Patient accepted another bite of banana and a few bites of oatmeal that had been prepared with brown sugar and banana. While patient cooperated with a few bites of food, each were responded to with expressions of distaste. Patient further drank so more of her Ensure using a straw, evidencing no difficulty with swallow on this liquid. Patient is at risk for FTT secondary to food aversion. Patient likely to refuse food, but staff will need to persist with offering despite refusal. Patient would benefit from more frequent, smaller meals to encourage intake, recommend removing some items from the tray (e.g. yogurts and puddings) for later consumption/offering. . Frequency/Duration: Date Range for Service Req: Timeline to reassess: Atg Architect Clinican/Clinical Fellow: No Supervisory Statement: I have reviewed and agree with the student/clinical fellow's documentation: N/A Speech Language Pathologist: Kasandra Toledo M.A., CCC-COLLAR TRIMMER
[2024-09-15 12:11] VITALS: BP 136/66; PULSE 90; RESP 16; TEMP 36.1; O2SAT 95
--- NOTE | 2024-09-15 12:36 | MHC.CM.PN ---
Pt has been medically cleared, she [facility].
[2024-09-15 15:03] VITALS: BP 135/85; PULSE 86; RESP 14; TEMP 36.2; O2SAT 95
--- NOTE | 2024-09-20 10:41 | PC.NURSE ---
Assumed care on 09/14/2024 at 1500. When I went to see the pt, pt appeared unresponsive with all VSS, starring at one place and responding to only vigorous sternal rub. I could not administer any PO meds including ativan, I messaged the provider with concern for some type of seizure. Provider ordered IV ativan. I pulled IV ativan, 2mg in 1ml vial, wasted 1.5mg which 1.75ml with another nurse and went to pt room to give. Pt looked still unresponsive, however when I approached her, she screamed once and started swinging her legs out of bed and kick me. I rushed to administer IV ativan, scanned and accidentally entered o.5ml instead of o.25ml trying to calm the pt as soon as possible. Pt received 0.5mg or 0.25ml of IV ativan with fair effect.
== END 2024-09-15 15:32 | DRG 101 ==
PROVIDERS: Admitting Provider Internal Medicine; PCP Internal Medicine; Visit Provider Internal Medicine
DX: G40.209 Localization-related (focal) (partial) symptomatic epilepsy and epileptic syndromes with complex partial seizures, not intractable, without status epilepticus (principal); F01.C18 Vascular dementia, severe, with other behavioral disturbance; F31.9 Bipolar disorder, unspecified; I10 Essential (primary) hypertension; E78.5 Hyperlipidemia, unspecified; Z66 Do not resuscitate; Z87.891 Personal history of nicotine dependence; Z79.899 Other long term (current) drug therapy
CPT/HCPCS: 36415; 80048; 80076; 83735; 85027; 92507; 92610; 95816; J1650; J1920; J2060; J2270; S9485

== ENCOUNTER → 2024-09-11 16:31 | Outpatient (BNV) | payer MEDICARE, MEDICAID, SELFPAY | PROVIDERS: Admitting Provider Internal Medicine; PCP Internal Medicine; Visit Provider Psychiatry & Neurology Neurology | DX: G40.909 Epilepsy, unspecified, not intractable, without status epilepticus (principal) | CPT/HCPCS: 99222 ==

== ENCOUNTER → 2024-09-11 | Outpatient (BNV) | payer MEDICARE, MEDICAID, SELFPAY | PROVIDERS: Admitting Provider Internal Medicine; Visit Provider Internal Medicine | DX: R56.9 Unspecified convulsions (principal); F31.9 Bipolar disorder, unspecified | CPT/HCPCS: 99223; 99231; 99232; 99239; 99499 ==

== ENCOUNTER 2024-09-15 12:55 | Inpatient (IN) | payer MEDICARE, MEDICAID, SELFPAY ==
--- OUTSIDE RECORDS SUMMARY | 2024-09-15 16:35 | XMS_ITS | Patient Health Record ---
Author Organization [facility] Address [address] [place] [address] Care Team Providers Care Order Builder Loader Name Role Phone KASSIEVETTE ORR Primary Care Provider Naresh Gerber Jr Unavailable [phone] ALLERGIES Allergen (clinical drug ingredient) Drug/Non Drug [...] Problem Diarrhea, unspecified type (R19.7) Active confirmed [id number] PLAN OF TREATMENT No Information Insurance Providers Payer Name Payer Address Payer Phone Subscriber Number Group Number Insured Name Patient Relationship to Insured Coverage Start Date Coverage End Date MEDICARE OF [place] [address] [place] [phone] [id number] VIVIAN MULTANI Self - patient is the insured MEDICA[facility] [address] [place] [address] [phone] [id number] VIVIAN MULTANI Self - patient is the [...]
--- NOTE | 2024-09-15 16:44 | PHA.MEDREC ---
Addendum entered by Joy Haskins RPh 09/15/24 16:52: reviewed by [facility]. Original Note: Pharmacy Consult ? Medication Reconciliation Pharmacy has completed the medication reconciliation. patient was discharged today from [facility] to [facility] [id number]. Utilized medical records to confirm med list
[2024-09-15 16:48] VITALS: BP 137/78; PULSE 94; RESP 15; TEMP 36.8; O2SAT 96
--- NOTE | 2024-09-15 18:26 | PC.ADMIT ---
Pt arrived on the unit at 1630 via wheelchair. She was an intrahospital transfer from [facility]. She was transferred off of this unit due to loss of consciousness. Pt was diagnosed with a seizure d/o while on [facility]. Pt is hear with Bipolar d/o with psychotic features. Pt unable to participate in admission process due to mental status. She is currently confused, A&Ox1, has a delay in answering questions, and is not answering appropriately. For this reason, pt is here on a 12b. Upon skin check, pt was found to have a left mastectomy. Nothing else to note. [facility] bed referral placed. Nutrition consult placed-pt declined to step on scale and hasn't been to bed yet-weight still needed. Pt c/o numbness in LE. Dr Amin looked back in notes and saw that pt had a CT scan on 09/11/24 for this same complaint. No acute findings. Pt is a DNR/DNI. 1:1 feed.
[2024-09-15 19:21] LABS: Alanine Aminotransferase 27 U/L (0-31); Anion Gap 16 (12-20); Aspartate Amino Transferase 29 U/L (5-31); Bilirubin Total 0.3 mg/dL (0.0-1.0); Blood Urea Nitrogen 44 mg/dL (9-16); Calcium 10.5 mg/dL (8.4-10.2); Carbon Dioxide 24 mmol/L (22-29); Chloride 111 mmol/L (96-108); Estimated Glomerular Filt Rate 55; Glucose Random 178 mg/dL (60-115); Potassium 4.1 mmol/L (3.3-5.1); Sodium 147 mmol/L (135-145); Total Protein 7.7 g/dL (6.5-8.0)
[2024-09-15 19:23] LABS: Alkaline Phosphatase 93 U/L (39-117)
[2024-09-15 20:00] VITALS: BP 128/70; PULSE 100; RESP 18; TEMP 36.7; O2SAT 97
[2024-09-15 20:02] VITALS: BMI 19.4
[2024-09-15] MEDS: Divalproex Sodium 250 MG TABLET.DR PO (21:00)
[2024-09-15] MEDS: Melatonin 3 MG TABLET 6 MG PO (21:00)
[2024-09-15] MEDS: rOPINIRole HCL 1 MG TABLET PO (21:00)
[2024-09-15] MEDS: Acetaminophen 325 MG TABLET 650 MG PO (21:04)
[2024-09-15] MEDS: traZODone HCL 50 MG TABLET PO (21:05)
[2024-09-16] MEDS: Famotidine 20 MG TABLET PO (05:38)
[2024-09-16] MEDS: Acetaminophen 325 MG TABLET 650 MG PO (05:39)
[2024-09-16 07:38] LABS: Glucose, Whole Blood 89 mg/dL (60-115)
--- NOTE | 2024-09-16 07:46 | PM.EVENT ---
Event Note Date of Service: 09/16/24 Event Note: Rapid response was called on 7:15 for altered mentation. Upon arrival the patient was alert with wide open eyes but was not responsive to vocal stimuli. resisted placement of instructor trainer canine service leads and was moving all extremities. Given recent hospital admission this seems to be another episode of seizure that did not last long and she was in post-ictal status at the time of evaluation. Will increase her Keppra to 500 mg bid for now and continue to monitor. Neurology can be consulted if this problem becomes more frequent. Time Spent With Patient Time: Total time managing care of this patient today ____ minutes.
[2024-09-16 08:00] VITALS: BP 169/83; PULSE 94; RESP 16; TEMP 36.9; O2SAT 96
[2024-09-16 09:20] LABS: Anion Gap 14 (12-20); Blood Urea Nitrogen 43 mg/dL (9-16); Calcium 10.2 mg/dL (8.4-10.2); Carbon Dioxide 26 mmol/L (22-29); Chloride 110 mmol/L (96-108); Creatinine Clr Calc Pharmacy 34.6; Estimated Glomerular Filt Rate > 60; Glucose Random 98 mg/dL (60-115); Potassium 3.7 mmol/L (3.3-5.1); Sodium 146 mmol/L (135-145)
[2024-09-16 09:22] LABS: Cholesterol 166 mg/dL (<200); HDL Cholesterol 51 mg/dL (>40); LDL Cholesterol Calculated 91 mg/dL (<100); Triglycerides 122 mg/dL (<150)
[2024-09-16] MEDS: amLODIPine Besylate 10 MG TABLET PO (13:07)
[2024-09-16] MEDS: Cholecalciferol (Vitamin D3) 25 MCG TABLET 125 MCG PO (13:07)
[2024-09-16] MEDS: Lactase TABLET 1 TAB PO (13:07)
[2024-09-16] MEDS: Enoxaparin Sodium 30 MG/0.3 ML SYRINGE SUBCUT (13:08)
[2024-09-16] MEDS: levETIRAcetam 500 MG TABLET PO ×2 (13:08→19:38)
--- NOTE | 2024-09-16 13:28 | HO.PSYADMNOT ---
HPI Date of Service: 09/16/24 Chief Complaint: adam Sources of Information: patient interviewed, chart reviewed and crisis/core team assessment reviewed HPI Subjective Notes: Section 12B Narrative: The patient is an 89-year-old female, mother of adult children was initially admitted to this unit for manic symptoms but she became unresponsive and a code was called, she was transferred to the medical floor. While she was admitted in [facility], neurology was involved and apparently she is having a seizure disorder. She was started on Keppra and transferred back after being medically cleared. On the intake interview, the patient was very confused, she look over-sedated since Keppra was started and she was unable to provide any details, she was at times nonsensical. Today in the morning, the patient had an episode of unresponsiveness and another called was called. No further medical intervention was done. The patient carries a diagnosis of bipolar disorder, apparently she had been noncompliant with treatment and she had manic symptoms on admission but that this moment she is on delirium, confused, unable to provide further details. She is able to contract for safety we are keeping on 15 minute checks and we will try to gather more collateral information. Past Psychiatric History: The patient carries a diagnosis of bipolar disorder with several prior admissions the patient is a very poor historian unable to provide details but apparently she has a lifelong history of mental illness. Medical Evaluation Reviewed: Yes COUNTS INCLUDE 234 BEDS AT THE [facility] Medical History Bipolar disorder with psychotic features Restless leg syndrome HDL deficiency HTN (hypertension) Surgical History H/O left mastectomy Family History: Denies Social History: The patient is a resident of intermediate facility with the behavioral unit. Trauma History: Denies Diagnostics Vital Signs (24Hr): Vital Signs - 24 hr 09/15/24 16:48 09/15/24 20:00 Temperature 98.2 F 98.1 F Pulse Rate 94 100 Respiratory Rate 15 18 Blood Pressure 137/78 128/70 Pulse Oximetry 96 97 Oxygen Delivery Method Room Air Room Air BMI result Body Mass Index 19.4 Labs 09/16/24 08:48 Labs: Laboratory Results - last 48 hr 09/15/24 09/16/24 09/16/24 18:53 07:34 08:48 Sodium 147 H 146 H Potassium 4.1 3.7 Chloride 111 H 110 H Carbon Dioxide 24 26 Anion Gap 16 14 BUN 44 H 43 H Creatinine 0.96 0.78 Estim Creat Clear Calc TNP 34.6 Estimated GFR 55 > 60 POC Glucose 89 Random Glucose 178 H 98 Calcium 10.5 H 10.2 Total Bilirubin 0.3 AST 29 ALT 27 Alkaline Phosphatase 93 Total Protein 7.7 Albumin 4.0 Triglycerides 122 Cholesterol 166 LDL Cholesterol, Calc 91 HDL Cholesterol 51 Meds/Allergies Meds Home Medications ?Medication ?Instructions ?Recorded ?Confirmed ?Type acetaminophen 325 mg tablet 650 mg PO Q6H PRN Pain 09/15/24 09/15/24 History calcium carbonate (Tums E-X) 750 mg PO Q4H PRN Acid Reflux 09/15/24 09/15/24 History cholecalciferol (vitamin D3) 125 125 mcg PO DAILY 09/15/24 09/15/24 History mcg (5,000 unit) tablet (Vitamin D3) enoxaparin 40 mg/0.4 mL 40 mg subcut Q24H 09/15/24 09/15/24 History subcutaneous syringe lidocaine 4 % topical patch 1 patch topical DAILY PRN Pain 09/15/24 09/15/24 History lorazepam 0.5 mg tablet 0.5 mg PO Q8H 09/15/24 09/15/24 History magnesium hydroxide 400 mg/5 mL 30 ml PO DAILY PRN Constipation 09/15/24 09/15/24 History oral suspension (Milk of Magnesia) melatonin 3 mg tablet 6 mg PO DAILY PRN Sleep 09/15/24 09/15/24 History Allergies Allergies Allergy/AdvReac Type Severity Reaction Status Date / Time No Known Allergies Allergy Verified 09/07/24 15:15 Mental Status Exam Mental Status Exam Patient Appearance: Appropriate Patient Orientation: Person and Situation Level of Consciousness: Awake and Appropriate Patient Behavior: Guarded and Passive Mood Description: Withdrawn Affect Description: Constricted Patient Cognition Impaired: Yes Ability to Follow Directions: Good Speech Pattern: Impoverished Hallucinations: None Delusions: Ideas of Reference Thought Process: Illogical, Distracted and Slowed Thinking Thought Content: positive for [place] and positive for Poverty of Content Judgement: Poor Assessment & Plan Assessment & Plan (1) Dementia: Status: Acute Code(s): F03.90 - Unspecified dementia, unspecified severity, without behavioral disturbance, psychotic disturbance, mood disturbance, and anxiety (2) Bipolar disorder: Status: Acute Code(s): F31.9 - Bipolar disorder, unspecified (3) Delirium: Status: Acute Code(s): R41.0 - Disorientation, unspecified Plan The patient is an elderly female with a past history of bipolar disorder who was initially admitted for manic symptoms and psychosis but later on she was transferred to Medicine after she became unresponsive. She was diagnosed with seizure disorder started on Keppra by Neurology. At this moment, the patient still have seizures at times with episodes of unresponsiveness postictal and still confused. Plan 1. Gather collateral information. 2. Keep her on 15 minute checks. 3. Continue with Keppra and Depakote as prescribed. 4. Continue with Zyprexa as mood stabilizer. 5. Reassessment with results Patient educated on: diagnosis Reason for continued inpatient stay Substantial Risk for: inability to function, rapid decompensation and med/psych decompensation Statement Statement: I have reviewed the history and physical and performed a pertinent examination on my patient. No changes have occurred unless specified. If the History and Physical was not performed prior to admission, the Hospitalist's service will be consulted for completing the admission physical. Time Spent With Patient Time: Total time managing care of this patient today __45__ minutes.
--- NOTE | 2024-09-16 15:47 | MHC.CLN ---
NUTRITION SEEN BY CHECK PROCESSING CLERK 09/15 WITH RECOMMENDATION FOR CHOPPED CONSISTENCY. DIET=REGULAR, CHOPPED WITH THIN LIQUIDS. ENSURE TID PROVIDES 1050 KCALS, 60 G PROTEIN. QUALIFIES MODERATELY MALNOURISHED IN THE CONTEXT OF CHRONIC ILLNESS. FOLLOW FOR PO INTAKE, DIET TOLERANCE AND WEIGHT.
[2024-09-16 15:51] VITALS: BMI 19.4
[2024-09-16] MEDS: rOPINIRole HCL 1 MG TABLET PO (19:39)
[2024-09-16] MEDS: Divalproex Sodium 250 MG TABLET.DR PO (19:39)
[2024-09-16 19:42] VITALS: BP 157/85; PULSE 98; RESP 16; TEMP 36.8; O2SAT 95
[2024-09-17] MEDS: Famotidine 20 MG TABLET PO (05:44)
[2024-09-17 08:25] VITALS: BP 141/86; PULSE 104; RESP 18; TEMP 36.4; O2SAT 96
[2024-09-17 08:37] VITALS: BP 141/86
[2024-09-17] MEDS: amLODIPine Besylate 10 MG TABLET PO (08:37)
[2024-09-17] MEDS: Lactase TABLET 1 TAB PO ×2 (08:37→12:04)
[2024-09-17] MEDS: Cholecalciferol (Vitamin D3) 25 MCG TABLET 125 MCG PO (08:37)
[2024-09-17] MEDS: levETIRAcetam 500 MG TABLET PO ×2 (08:37→19:37)
[2024-09-17] MEDS: Nicotine 14 MG PATCH.TD24 TRANSDERMA (08:38)
[2024-09-17] MEDS: Enoxaparin Sodium 30 MG/0.3 ML SYRINGE SUBCUT (08:38)
--- NOTE | 2024-09-17 12:16 | P.PNPSI_ITS ---
Subjective Subjective Date of Service: 09/17/24 Reason For Visit: adam Interim History: Patient seen and discussed with RN. She says I feel different today. I feel relaxed. She was seen laying in a Tanja chair. Calm and cooperative. Pleasantly confused. Denies SI/HI/AVH. Later in the afternoon she had convulsions for 2 minutes. Seen by hospitalist. Mental Status Exam Mental Status Exam Patient Appearance: Appropriate Patient Orientation: Person and Situation Level of Consciousness: Awake and Appropriate Patient Behavior: Guarded and Passive Mood Description: Withdrawn Affect Description: Constricted Patient Cognition Impaired: Yes Ability to Follow Directions: Good Speech Pattern: Impoverished Diagnostics Vital Signs (24Hr): Vital Signs - 24 hr 09/16/24 19:42 09/17/24 08:25 09/17/24 08:37 Temperature 98.2 F 97.5 F Pulse Rate 98 104 H Respiratory Rate 16 18 Blood Pressure 157/85 H 141/86 H 141/86 H Pulse Oximetry 95 96 Oxygen Delivery Method Room Air Room Air BMI result Body Mass Index 19.4 Labs 09/16/24 08:48 Labs: Laboratory Results - last 48 hr 09/15/24 09/16/24 09/16/24 18:53 07:34 08:48 Sodium 147 H 146 H Potassium 4.1 3.7 Chloride 111 H 110 H Carbon Dioxide 24 26 Anion Gap 16 14 BUN 44 H 43 H Creatinine 0.96 0.78 Estim Creat Clear Calc TNP 34.6 Estimated GFR 55 > 60 POC Glucose 89 Random Glucose 178 H 98 Calcium 10.5 H 10.2 Total Bilirubin 0.3 AST 29 ALT 27 Alkaline Phosphatase 93 Total Protein 7.7 Albumin 4.0 Triglycerides 122 Cholesterol 166 LDL Cholesterol, Calc 91 HDL Cholesterol 51 Medications Medications Current Medications Acetaminophen (Acetaminophen 325 Mg Tablet) 650 mg PO Q6H PRN PRN Reason: Headache/Pain, Scale 1-10 Last Admin: 09/16/24 05:39 Dose: 650 mg Al Hydroxide/Mg Hydroxide (Magnesium Hydrox/Alum Hydrox 30 Ml Oral.Susp) 30 ml PO Q6H PRN PRN Reason: Heartburn/Nausea Amlodipine Besylate (Amlodipine Besylate 10 Mg Tablet) 10 mg PO DAILY JHONNY; Protocol Last Admin: 09/17/24 08:37 Dose: 10 mg Artificial Tears (Artificial Tears 15 Ml Drops) 2 drop EYE-BOTH Q4H PRN PRN Reason: Dry Eyes Calcium Carbonate (Calcium Carbonate 750 Mg Tab.Chew) 750 mg PO Q4H PRN PRN Reason: Acid Reflux Divalproex Sodium (Divalproex Sodium 250 Mg Tablet.Dr) 250 mg PO BEDTIME [facility] Last Admin: 09/16/24 19:39 Dose: 250 mg Docusate Sodium (Docusate Sodium 100 Mg Capsule) 100 mg PO DAILY PRN PRN Reason: Constipation Enoxaparin Sodium (Enoxaparin Sodium 30 Mg/0.3 Ml Syringe) 30 mg SUBCUT Q24H [facility] Last Admin: 09/17/24 08:38 Dose: 30 mg Famotidine (Famotidine 20 Mg Tablet) 20 mg PO DAILY@0630 [facility] Last Admin: 09/17/24 05:44 Dose: 20 mg Hydroxyzine HCl (Hydroxyzine Hcl 25 Mg Tablet) 25 mg PO Q6H PRN PRN Reason: mild anxiety Lactase (Lactase Tablet) 1 tab PO TIDWM [facility] Last Admin: 09/17/24 12:04 Dose: 1 tab Levetiracetam (Levetiracetam 500 Mg Tablet) 500 mg PO BID [facility] Last Admin: 09/17/24 08:37 Dose: 500 mg Lidocaine (Lidocaine 4 % Patch Adh..Patch) 1 patch TRANSDERMA DAILY PRN; Protocol PRN Reason: Pain, Mild (Pain Scale 1-3) Magnesium Hydroxide (Milk Of Magnesia 30 Ml Oral.Susp) 30 ml PO DAILY PRN PRN Reason: Constipation Melatonin (Melatonin 3 Mg Tablet) 6 mg PO DAILY PRN PRN Reason: Sleep Last Admin: 09/15/24 21:00 Dose: 6 mg Nicotine (Nicotine 14 Mg Patch.Td24) 14 mg TRANSDERMA DAILY [facility] Last Admin: 09/17/24 08:38 Dose: 14 mg Quetiapine Fumarate (Quetiapine Fumarate 25 Mg Tablet) 25 mg PO BID PRN PRN Reason: agitation, aggression Ropinirole HCl (Ropinirole Hcl 1 Mg Tablet) 1 mg PO BEDTIME [facility] Last Admin: 09/16/24 19:39 Dose: 1 mg Trazodone HCl (Trazodone Hcl 50 Mg Tablet) 50 mg PO BEDTIME MRX1 PRN PRN Reason: Insomnia Last Admin: 09/15/24 21:05 Dose: 50 mg Vitamin D (Cholecalciferol (Vitamin D3) 25 Mcg Tablet) 125 mcg PO DAILY JHONNY Last Admin: 09/17/24 08:37 Dose: 125 mcg Allergies Allergies Allergy/AdvReac Type Severity Reaction Status Date / Time No Known Allergies Allergy Verified 09/07/24 15:15 Assessment & Plan Assessment & Plan (1) Dementia: Status: Acute Code(s): F03.90 - Unspecified dementia, unspecified severity, without behavioral disturbance, psychotic disturbance, mood disturbance, and anxiety (2) Bipolar disorder: Status: Acute Code(s): F31.9 - Bipolar disorder, unspecified (3) Delirium: Status: Acute Code(s): R41.0 - Disorientation, unspecified Plan The patient is an elderly female with a past history of bipolar disorder who was initially admitted for manic symptoms and psychosis but later on she was transferred to Medicine after she became unresponsive. She was diagnosed with seizure disorder started on Keppra by Neurology. At this moment, the patient still have seizures at times with episodes of unresponsiveness postictal and still confused. Plan 1. Gather collateral information. 2. Keep her on 15 minute checks. 3. Continue with Keppra and Depakote as prescribed. 4. Continue with Zyprexa as mood stabilizer. 5. Reassessment with results 09/17: Continue current management and treatment plan. Consider neurology consultation. Reason for continued inpatient stay Substantial Risk for: inability to function and rapid decompensation Time Spent With Patient Time: Total time managing care of this patient today ____ minutes.
[2024-09-17 16:07] VITALS: BP 164/79; PULSE 101; RESP 16; TEMP 36.9; O2SAT 97
--- NOTE | 2024-09-17 16:17 | PC.NURSE ---
Patient was found slumped over in chair by [facility]. Radial pulse palpated and respirations 18/min and free and easy. She would not respond to verbal stimuli but verbally responded to sternal rub. Margo then had convulsions for approximately two minutes and then woke up spontaneously. She stared at this sign writer hand blankly for about approximately two minutes and then fell asleep. Dr. Saez and Dr. Sampson notified. Dr. Sampson to come see patient. She is currently resting in a recliner chair with eyes closed and appears comfortable with even, unlabored respirations.
--- NOTE | 2024-09-17 17:22 | PC.NURSE ---
Daughter Ce updated via telephone by this investigative writer of seizure-like activity that occurred this afternoon.
--- NOTE | 2024-09-17 17:32 | PM.EVENT ---
Event Note Date of Service: 09/17/24 Event Note: The patient had incident of Shaking then she became unresponsive I went to see her and she woke up with sternum rub back to her baseline This could be another episode of seizure with post-ictal state will add Ativan PRN IM if needed for any similar activity consider Neurology consult for further adjustment of her medications. Time Spent With Patient Time: Total time managing care of this patient today ____ minutes.
[2024-09-17 19:32] VITALS: BP 148/77; PULSE 88; RESP 17; TEMP 36.3; O2SAT 96
[2024-09-17] MEDS: traZODone HCL 50 MG TABLET PO (19:36)
[2024-09-17] MEDS: rOPINIRole HCL 1 MG TABLET PO (19:37)
[2024-09-17] MEDS: Divalproex Sodium 250 MG TABLET.DR PO (19:37)
[2024-09-17] MEDS: QUEtiapine Fumarate 25 MG TABLET PO (19:37)
[2024-09-18] MEDS: Acetaminophen 325 MG TABLET 650 MG PO (00:01)
[2024-09-18] MEDS: Famotidine 20 MG TABLET PO (05:55)
[2024-09-18 08:30] VITALS: BP 145/77; PULSE 87; RESP 18; TEMP 36.3; O2SAT 97
[2024-09-18] MEDS: Enoxaparin Sodium 30 MG/0.3 ML SYRINGE SUBCUT (08:32)
[2024-09-18] MEDS: Cholecalciferol (Vitamin D3) 25 MCG TABLET 125 MCG PO (08:32)
[2024-09-18] MEDS: Lactase TABLET 1 TAB PO ×3 (08:32→16:11)
[2024-09-18] MEDS: Nicotine 14 MG PATCH.TD24 TRANSDERMA (08:32)
[2024-09-18] MEDS: levETIRAcetam 500 MG TABLET PO ×2 (08:32→20:01)
[2024-09-18 08:33] VITALS: BP 145/72
[2024-09-18] MEDS: amLODIPine Besylate 10 MG TABLET PO (08:33)
--- NOTE | 2024-09-18 11:14 | HO.PSYCHPN ---
Subjective Subjective Date of Service: 09/18/24 Reason For Visit: adam Interim History: Patient seen and discussed with RN. She says I feel better than yesterday today Had convulsions yesterday and seen by medicine. Ativan IM for seizures PRN was ordered. She has not had any further episodessince then. Recommended consulting neurology. She was seen in a wheel chair. Calm and cooperative. Pleasantly confused. Denies SI/HI/AVH. Mental Status Exam Mental Status Exam Patient Appearance: Appropriate Patient Orientation: Person and Situation Level of Consciousness: Awake and Appropriate Patient Behavior: Guarded and Passive Mood Description: Withdrawn Affect Description: Constricted Patient Cognition Impaired: Yes Ability to Follow Directions: Good Speech Pattern: Impoverished Diagnostics Vital Signs (24Hr): Vital Signs - 24 hr 09/17/24 16:07 09/17/24 19:32 09/18/24 08:30 Temperature 98.4 F 97.4 F 97.3 F Pulse Rate 101 H 88 87 Respiratory Rate 16 17 18 Blood Pressure 164/79 H 148/77 H 145/77 H Pulse Oximetry 97 96 97 Oxygen Delivery Method Room Air Room Air Room Air 09/18/24 08:33 Temperature Pulse Rate Respiratory Rate Blood Pressure 145/72 H Pulse Oximetry Oxygen Delivery Method BMI result Body Mass Index 19.4 Labs 09/16/24 08:48 Medications Medications Current Medications Acetaminophen (Acetaminophen 325 Mg Tablet) 650 mg PO Q6H PRN PRN Reason: Headache/Pain, Scale 1-10 Last Admin: 09/18/24 00:01 Dose: 650 mg Al Hydroxide/Mg Hydroxide (Magnesium Hydrox/Alum Hydrox 30 Ml Oral.Susp) 30 ml PO Q6H PRN PRN Reason: Heartburn/Nausea Amlodipine Besylate (Amlodipine Besylate 10 Mg Tablet) 10 mg PO DAILY [facility]; Protocol Last Admin: 09/18/24 08:33 Dose: 10 mg Artificial Tears (Artificial Tears 15 Ml Drops) 2 drop EYE-BOTH Q4H PRN PRN Reason: Dry Eyes Calcium Carbonate (Calcium Carbonate 750 Mg Tab.Chew) 750 mg PO Q4H PRN PRN Reason: Acid Reflux Divalproex Sodium (Divalproex Sodium 250 Mg Tablet.Dr) 250 mg PO BEDTIME [facility] Last Admin: 09/17/24 19:37 Dose: 250 mg Docusate Sodium (Docusate Sodium 100 Mg Capsule) 100 mg PO DAILY PRN PRN Reason: Constipation Enoxaparin Sodium (Enoxaparin Sodium 30 Mg/0.3 Ml Syringe) 30 mg SUBCUT Q24H [facility] Last Admin: 09/18/24 08:32 Dose: 30 mg Famotidine (Famotidine 20 Mg Tablet) 20 mg PO DAILY@0630 [facility] Last Admin: 09/18/24 05:55 Dose: 20 mg Hydroxyzine HCl (Hydroxyzine Hcl 25 Mg Tablet) 25 mg PO Q6H PRN PRN Reason: mild anxiety Lactase (Lactase Tablet) 1 tab PO TIDWM [facility] Last Admin: 09/18/24 08:32 Dose: 1 tab Levetiracetam (Levetiracetam 500 Mg Tablet) 500 mg PO BID [facility] Last Admin: 09/18/24 08:32 Dose: 500 mg Lidocaine (Lidocaine 4 % Patch Adh..Patch) 1 patch TRANSDERMA DAILY PRN; Protocol PRN Reason: Pain, Mild (Pain Scale 1-3) Lorazepam (Lorazepam 2 Mg/Ml Vial) 1 mg IM Q6H PRN PRN Reason: Seizures Magnesium Hydroxide (Milk Of Magnesia 30 Ml Oral.Susp) 30 ml PO DAILY PRN PRN Reason: Constipation Melatonin (Melatonin 3 Mg Tablet) 6 mg PO DAILY PRN PRN Reason: Sleep Last Admin: 09/15/24 21:00 Dose: 6 mg Nicotine (Nicotine 14 Mg Patch.Td24) 14 mg TRANSDERMA DAILY [facility] Last Admin: 09/18/24 08:32 Dose: 14 mg Quetiapine Fumarate (Quetiapine Fumarate 25 Mg Tablet) 25 mg PO BID PRN PRN Reason: agitation, aggression Last Admin: 09/17/24 19:37 Dose: 25 mg Ropinirole HCl (Ropinirole Hcl 1 Mg Tablet) 1 mg PO BEDTIME [facility] Last Admin: 09/17/24 19:37 Dose: 1 mg Trazodone HCl (Trazodone Hcl 50 Mg Tablet) 50 mg PO BEDTIME MRX1 PRN PRN Reason: Insomnia Last Admin: 09/17/24 19:36 Dose: 50 mg Vitamin D (Cholecalciferol (Vitamin D3) 25 Mcg Tablet) 125 mcg PO DAILY [facility] Last Admin: 09/18/24 08:32 Dose: 125 mcg Allergies Allergies Allergy/AdvReac Type Severity Reaction Status Date / Time No Known Allergies Allergy Verified 09/07/24 15:15 Assessment & Plan Assessment & Plan (1) Dementia: Status: Acute Code(s): F03.90 - Unspecified dementia, unspecified severity, without behavioral disturbance, psychotic disturbance, mood disturbance, and anxiety (2) Bipolar disorder: Status: Acute Code(s): F31.9 - Bipolar disorder, unspecified (3) Delirium: Status: Acute Code(s): R41.0 - Disorientation, unspecified Plan The patient is an elderly female with a past history of bipolar disorder who was initially admitted for manic symptoms and psychosis but later on she was transferred to Medicine after she became unresponsive. She was diagnosed with seizure disorder started on Keppra by Neurology. At this moment, the patient still have seizures at times with episodes of unresponsiveness postictal and still confused. Plan 1. Gather collateral information. 2. Keep her on 15 minute checks. 3. Continue with Keppra and Depakote as prescribed. 4. Continue with Zyprexa as mood stabilizer. 5. Reassessment with results 09/17: Continue current management and treatment plan. Consider neurology consultation. 09/18: continue current management and treatment plan. Consider neurology consultation. Reason for continued inpatient stay Substantial Risk for: inability to function, rapid decompensation and med/psych decompensation Time Spent With Patient Time: Total time managing care of this patient today ____ minutes.
[2024-09-18 18:01] VITALS: BP 184/82; PULSE 107; RESP 16; TEMP 36.7; O2SAT 100
[2024-09-18] MEDS: LORazepam 2 MG/ML VIAL 1 MG IM ×2 (18:03→18:23)
[2024-09-18 18:09] VITALS: BP 181/89; PULSE 105; RESP 18; TEMP 36.7; O2SAT 96
--- NOTE | 2024-09-18 18:32 | PM.EVENT ---
Event Note Date of Service: 09/18/24 Event Note: Call to evaluate a patient who had an episode of seizure Patient receive 2 mg of IM Ativan total As per nurse patient was noted to have have a blank stare/she was not responsive , jaw was clenched, upper extremity shaking, no lower extremity abnormal movements noted At present patient is not responsive to verbal stimuli Vitals stable Recommend to follow clinical course, no further treatment at this time Continue Robert as ordered Will reconsult Neurology Time Spent With Patient Time: Total time managing care of this patient today ____ minutes.
--- NOTE | 2024-09-18 18:46 | PC.NURSE ---
Margo was noted to be convulsing this evening and would not respond to verbal stimuli. She was responsive to pain from sternal rub but kept her eyes closed and continued to convulse for approximately 7 minutes. After convulsing ceased she appeared to be sleeping. 1 mg IM give at 1803 for seizure activity as ordered and Dr. Bonilla and Dr. Serrato notified. Another 1mg Ativan IM ordered and administered at 1823. Dr. Calvo at bedside. Margo currently resting in bed with eyes closed and she is currently on five minute safety checks. Respirations are free and easy. See vital signs section for vitals. SBPs 180s and Dr. Calvo aware. Daughter Ce sheets via telephone call by this junior underwriter.
[2024-09-18 20:00] VITALS: BP 136/72; PULSE 93; RESP 16; TEMP 36.2; O2SAT 96
[2024-09-18] MEDS: rOPINIRole HCL 1 MG TABLET PO (20:01)
[2024-09-18] MEDS: Divalproex Sodium 250 MG TABLET.DR PO (20:01)
[2024-09-19] MEDS: Famotidine 20 MG TABLET PO (06:19)
[2024-09-19 09:15] VITALS: BP 126/76; PULSE 88; RESP 15; TEMP 36.9; O2SAT 95
[2024-09-19] MEDS: Nicotine 14 MG PATCH.TD24 TRANSDERMA (09:17)
[2024-09-19] MEDS: Lactase TABLET 1 TAB PO ×3 (09:17→17:13)
[2024-09-19] MEDS: levETIRAcetam 500 MG TABLET PO ×2 (09:17→20:44)
[2024-09-19] MEDS: amLODIPine Besylate 10 MG TABLET PO (09:17)
[2024-09-19] MEDS: Cholecalciferol (Vitamin D3) 25 MCG TABLET 125 MCG PO (09:17)
[2024-09-19] MEDS: Enoxaparin Sodium 30 MG/0.3 ML SYRINGE SUBCUT (09:18)
--- NOTE | 2024-09-19 09:41 | HO.PSYCHPN ---
Subjective Subjective Date of Service: 09/19/24 Reason For Visit: adam Subjective Notes: Conditional Voluntary Interim History: The nursing staff reported the patient had being eating her meals she slept well. She had a seizure last afternoon. The executive secretary social welfare tried to get a family meeting and trying to get more collateral information from [facility]. On interview the patient is pleasantly confused still manic. Mental Status Exam Mental Status Exam Patient Appearance: Appropriate Patient Orientation: Person Level of Consciousness: Awake, Disoriented and Restless Patient Behavior: Guarded and Cooperative Mood Description: Calm Affect Description: Blunted Patient Cognition Impaired: Yes Ability to Follow Directions: Good Speech Pattern: Clear Hallucinations: Auditory Delusions: Paranoid Ideation and Ideas of Reference Thought Process: Distracted and Slowed Thinking Thought Content: positive for [place] and positive for Poverty of Content Judgement: Poor Diagnostics Vital Signs (24Hr): Vital Signs - 24 hr 09/18/24 18:01 09/18/24 18:09 09/18/24 20:00 Temperature 98.1 F 98.1 F 97.1 F Pulse Rate 107 H 105 H 93 Respiratory Rate 16 18 16 Blood Pressure 184/82 H 181/89 H 136/72 Pulse Oximetry 100 96 96 Oxygen Delivery Method Room Air Room Air 09/19/24 09:15 Temperature 98.4 F Pulse Rate 88 Respiratory Rate 15 Blood Pressure 126/76 Pulse Oximetry 95 Oxygen Delivery Method Room Air BMI result Body Mass Index 19.4 Labs 09/16/24 08:48 Medications Medications Current Medications Acetaminophen (Acetaminophen 325 Mg Tablet) 650 mg PO Q6H PRN PRN Reason: Headache/Pain, Scale 1-10 Last Admin: 09/18/24 00:01 Dose: 650 mg Al Hydroxide/Mg Hydroxide (Magnesium Hydrox/Alum Hydrox 30 Ml Oral.Susp) 30 ml PO Q6H PRN PRN Reason: Heartburn/Nausea Amlodipine Besylate (Amlodipine Besylate 10 Mg Tablet) 10 mg PO DAILY [facility]; Protocol Last Admin: 09/19/24 09:17 Dose: 10 mg Artificial Tears (Artificial Tears 15 Ml Drops) 2 drop EYE-BOTH Q4H PRN PRN Reason: Dry Eyes Calcium Carbonate (Calcium Carbonate 750 Mg Tab.Chew) 750 mg PO Q4H PRN PRN Reason: Acid Reflux Divalproex Sodium (Divalproex Sodium 250 Mg Tablet.Dr) 250 mg PO BEDTIME [facility] Last Admin: 09/18/24 20:01 Dose: 250 mg Docusate Sodium (Docusate Sodium 100 Mg Capsule) 100 mg PO DAILY PRN PRN Reason: Constipation Enoxaparin Sodium (Enoxaparin Sodium 30 Mg/0.3 Ml Syringe) 30 mg SUBCUT Q24H [facility] Last Admin: 09/19/24 09:18 Dose: 30 mg Famotidine (Famotidine 20 Mg Tablet) 20 mg PO DAILY@0630 [facility] Last Admin: 09/19/24 06:19 Dose: 20 mg Hydroxyzine HCl (Hydroxyzine Hcl 25 Mg Tablet) 25 mg PO Q6H PRN PRN Reason: mild anxiety Lactase (Lactase Tablet) 1 tab PO TIDWM [facility] Last Admin: 09/19/24 09:17 Dose: 1 tab Levetiracetam (Levetiracetam 500 Mg Tablet) 500 mg PO BID [facility] Last Admin: 09/19/24 09:17 Dose: 500 mg Lidocaine (Lidocaine 4 % Patch Adh..Patch) 1 patch TRANSDERMA DAILY PRN; Protocol PRN Reason: Pain, Mild (Pain Scale 1-3) Lorazepam (Lorazepam 2 Mg/Ml Vial) 1 mg IM Q6H PRN PRN Reason: Seizures Last Admin: 09/18/24 18:03 Dose: 1 mg Magnesium Hydroxide (Milk Of Magnesia 30 Ml Oral.Susp) 30 ml PO DAILY PRN PRN Reason: Constipation Melatonin (Melatonin 3 Mg Tablet) 6 mg PO DAILY PRN PRN Reason: Sleep Last Admin: 09/15/24 21:00 Dose: 6 mg Nicotine (Nicotine 14 Mg Patch.Td24) 14 mg TRANSDERMA DAILY [facility] Last Admin: 09/19/24 09:17 Dose: 14 mg Quetiapine Fumarate (Quetiapine Fumarate 25 Mg Tablet) 25 mg PO BID PRN PRN Reason: agitation, aggression Last Admin: 09/17/24 19:37 Dose: 25 mg Ropinirole HCl (Ropinirole Hcl 1 Mg Tablet) 1 mg PO BEDTIME [facility] Last Admin: 09/18/24 20:01 Dose: 1 mg Trazodone HCl (Trazodone Hcl 50 Mg Tablet) 50 mg PO BEDTIME MRX1 PRN PRN Reason: Insomnia Last Admin: 09/17/24 19:36 Dose: 50 mg Vitamin D (Cholecalciferol (Vitamin D3) 25 Mcg Tablet) 125 mcg PO DAILY [facility] Last Admin: 09/19/24 09:17 Dose: 125 mcg Allergies Allergies Allergy/AdvReac Type Severity Reaction Status Date / Time No Known Allergies Allergy Verified 09/07/24 15:15 Assessment & Plan Assessment & Plan (1) Dementia: Status: Acute Code(s): F03.90 - Unspecified dementia, unspecified severity, without behavioral disturbance, psychotic disturbance, mood disturbance, and anxiety (2) Bipolar disorder: Status: Acute Code(s): F31.9 - Bipolar disorder, unspecified (3) Delirium: Status: Acute Code(s): R41.0 - Disorientation, unspecified Plan The patient is an elderly female with a past history of bipolar disorder who was initially admitted for manic symptoms and psychosis but later on she was transferred to Medicine after she became unresponsive. She was diagnosed with seizure disorder started on Keppra by Neurology. At this moment, the patient still have seizures at times with episodes of unresponsiveness postictal and still confused. Plan 1. Gather collateral information. 2. Keep her on 15 minute checks. 3. Continue with Keppra and Depakote as prescribed. 4. Continue with Zyprexa as mood stabilizer. 5. Reassessment with results 6. Continue Keppra and follow-up by Neurology. Reason for continued inpatient stay Substantial Risk for: inability to function, rapid decompensation and med/psych decompensation Time Spent With Patient Time: Total time managing care of this patient today __20__ minutes.
--- NOTE | 2024-09-19 16:03 | MHC.CLN ---
F/U DIET=REGULAR, CHOPPED WITH THIN LIQUIDS. ENSURE TID PROVIDES 1050 KCALS, 60 G PROTEIN. PATIENT WITH SEIZURE LIKE ACTIVITY. PO POOR MANY MEALS. CONTINUE CURRENT DIET AND SUPPLEMENT.
[2024-09-19 20:00] VITALS: BP 154/82; PULSE 95; RESP 16; TEMP 36.1; O2SAT 93; O2SAT 95
[2024-09-19] MEDS: rOPINIRole HCL 1 MG TABLET PO (20:45)
[2024-09-19] MEDS: Divalproex Sodium 250 MG TABLET.DR PO (20:45)
[2024-09-20] MEDS: Acetaminophen 325 MG TABLET 650 MG PO (01:46)
[2024-09-20] MEDS: Famotidine 20 MG TABLET PO (06:03)
[2024-09-20 10:14] VITALS: BP 160/88; PULSE 98; RESP 16; TEMP 36.8; O2SAT 96
--- NOTE | 2024-09-20 10:25 | HO.PSYCHPN ---
Subjective Subjective Date of Service: 09/20/24 Reason For Visit: adam Subjective Notes: Conditional Voluntary Interim History: The nursing staff reported the patient had been more pleasant confused, complained of pain in her shoulders resolved with Tylenol. She slept 8 hours. On interview the patient remains pleasantly confused with racing thoughts. We are going to increase the Depakote to t.i.d. on Sprinkles so it will be easier to swallow. Mental Status Exam Mental Status Exam Patient Appearance: Appropriate Patient Orientation: Person Level of Consciousness: Awake Patient Behavior: Guarded and Talkative Mood Description: Constricted Affect Description: Labile Patient Cognition Impaired: Yes Ability to Follow Directions: Good Speech Pattern: Clear Hallucinations: None Delusions: Ideas of Reference Thought Process: Distracted and Slowed Thinking Thought Content: positive for [place] and positive for Poverty of Content Judgement: Poor Diagnostics Vital Signs (24Hr): Vital Signs - 24 hr 09/19/24 20:00 09/19/24 20:00 09/20/24 10:14 Temperature 96.9 F 96.9 F 98.2 F Pulse Rate 95 95 98 Respiratory Rate 16 16 Blood Pressure 154/82 H 154/82 H 160/88 H Pulse Oximetry 95 93 96 Oxygen Delivery Method Room Air Room Air Room Air BMI result Body Mass Index 19.4 Labs 09/16/24 08:48 Medications Medications Current Medications Acetaminophen (Acetaminophen 325 Mg Tablet) 650 mg PO Q6H PRN PRN Reason: Headache/Pain, Scale 1-10 Last Admin: 09/20/24 01:46 Dose: 650 mg Al Hydroxide/Mg Hydroxide (Magnesium Hydrox/Alum Hydrox 30 Ml Oral.Susp) 30 ml PO Q6H PRN PRN Reason: Heartburn/Nausea Amlodipine Besylate (Amlodipine Besylate 10 Mg Tablet) 10 mg PO DAILY [facility]; Protocol Last Admin: 09/19/24 09:17 Dose: 10 mg Artificial Tears (Artificial Tears 15 Ml Drops) 2 drop EYE-BOTH Q4H PRN PRN Reason: Dry Eyes Calcium Carbonate (Calcium Carbonate 750 Mg Tab.Chew) 750 mg PO Q4H PRN PRN Reason: Acid Reflux Divalproex Sodium (Divalproex Sodium Sprinkles 125 Mg Cap.DrArySpr) 250 mg PO TID ON [facility] OF [facility] Docusate Sodium (Docusate Sodium 100 Mg Capsule) 100 mg PO DAILY PRN PRN Reason: Constipation Enoxaparin Sodium (Enoxaparin Sodium 30 Mg/0.3 Ml Syringe) 30 mg SUBCUT Q24H [facility] Last Admin: 09/19/24 09:18 Dose: 30 mg Famotidine (Famotidine 20 Mg Tablet) 20 mg PO DAILY@0630 [facility] Last Admin: 09/20/24 06:03 Dose: 20 mg Hydroxyzine HCl (Hydroxyzine Hcl 25 Mg Tablet) 25 mg PO Q6H PRN PRN Reason: mild anxiety Lactase (Lactase Tablet) 1 tab PO TIDWM [facility] Last Admin: 09/19/24 17:13 Dose: 1 tab Levetiracetam (Levetiracetam 500 Mg Tablet) 500 mg PO BID [facility] Last Admin: 09/19/24 20:44 Dose: 500 mg Lidocaine (Lidocaine 4 % Patch Adh..Patch) 1 patch TRANSDERMA DAILY PRN; Protocol PRN Reason: Pain, Mild (Pain Scale 1-3) Lorazepam (Lorazepam 2 Mg/Ml Vial) 1 mg IM Q6H PRN PRN Reason: Seizures Last Admin: 09/18/24 18:03 Dose: 1 mg Magnesium Hydroxide (Milk Of Magnesia 30 Ml Oral.Susp) 30 ml PO DAILY PRN PRN Reason: Constipation Melatonin (Melatonin 3 Mg Tablet) 6 mg PO DAILY PRN PRN Reason: Sleep Last Admin: 09/15/24 21:00 Dose: 6 mg Nicotine (Nicotine 14 Mg Patch.Td24) 14 mg TRANSDERMA DAILY [facility] Last Admin: 09/19/24 09:17 Dose: 14 mg Quetiapine Fumarate (Quetiapine Fumarate 25 Mg Tablet) 25 mg PO BID PRN PRN Reason: agitation, aggression Last Admin: 09/17/24 19:37 Dose: 25 mg Ropinirole HCl (Ropinirole Hcl 1 Mg Tablet) 1 mg PO BEDTIME [facility] Last Admin: 09/19/24 20:45 Dose: 1 mg Trazodone HCl (Trazodone Hcl 50 Mg Tablet) 50 mg PO BEDTIME MRX1 PRN PRN Reason: Insomnia Last Admin: 09/17/24 19:36 Dose: 50 mg Vitamin D (Cholecalciferol (Vitamin D3) 25 Mcg Tablet) 125 mcg PO DAILY [facility] Last Admin: 09/19/24 09:17 Dose: 125 mcg Allergies Allergies Allergy/AdvReac Type Severity Reaction Status Date / Time No Known Allergies Allergy Verified 09/07/24 15:15 Assessment & Plan Assessment & Plan (1) Dementia: Status: Acute Code(s): F03.90 - Unspecified dementia, unspecified severity, without behavioral disturbance, psychotic disturbance, mood disturbance, and anxiety (2) Bipolar disorder: Status: Acute Code(s): F31.9 - Bipolar disorder, unspecified (3) Delirium: Status: Acute Code(s): R41.0 - Disorientation, unspecified Plan The patient is an elderly female with a past history of bipolar disorder who was initially admitted for manic symptoms and psychosis but later on she was transferred to Medicine after she became unresponsive. She was diagnosed with seizure disorder started on Keppra by Neurology. At this moment, the patient still have seizures at times with episodes of unresponsiveness postictal and still confused. Plan 1. Gather collateral information. 2. Keep her on 15 minute checks. 3. Continue with Keppra and Depakote as prescribed. 4. Continue with Zyprexa as mood stabilizer. Later on it was discontinue due to seizures. 5. Reassessment with results 6. Continue Keppra and follow-up by Neurology. 7. Depakote Sprinkles 250 p.o. t.i.d. blood work next Thursday Reason for continued inpatient stay Substantial Risk for: inability to function, rapid decompensation and med/psych decompensation Time Spent With Patient Time: Total time managing care of this patient today __20__ minutes.
[2024-09-20] MEDS: Nicotine 14 MG PATCH.TD24 TRANSDERMA (10:40)
[2024-09-20] MEDS: Enoxaparin Sodium 30 MG/0.3 ML SYRINGE SUBCUT (10:41)
[2024-09-20] MEDS: levETIRAcetam 500 MG TABLET PO ×2 (10:44→21:08)
[2024-09-20] MEDS: Divalproex Sodium Sprinkles 125 MG CAP.DR.SPR 250 MG PO ×3 (10:45→21:09)
[2024-09-20] MEDS: Lactase TABLET 1 TAB PO ×3 (10:45→16:14)
[2024-09-20] MEDS: amLODIPine Besylate 10 MG TABLET PO (10:45)
[2024-09-20] MEDS: Cholecalciferol (Vitamin D3) 25 MCG TABLET 125 MCG PO (10:45)
[2024-09-20] MEDS: Docusate Sodium 100 MG CAPSULE PO (13:23)
[2024-09-20] MEDS: Milk of Magnesia 30 ML ORAL.SUSP PO (13:23)
[2024-09-20 20:00] VITALS: BP 145/64; PULSE 95; RESP 18; TEMP 36.6; O2SAT 95
[2024-09-20] MEDS: rOPINIRole HCL 1 MG TABLET PO (21:09)
[2024-09-21] MEDS: Acetaminophen 325 MG TABLET 650 MG PO (00:49)
[2024-09-21] MEDS: Famotidine 20 MG TABLET PO (05:59)
[2024-09-21 08:00] VITALS: BP 116/76; PULSE 98; RESP 16; TEMP 36.4; O2SAT 99
[2024-09-21] MEDS: Cholecalciferol (Vitamin D3) 25 MCG TABLET 125 MCG PO (09:07)
[2024-09-21] MEDS: Lactase TABLET 1 TAB PO ×3 (09:08→16:38)
[2024-09-21] MEDS: Divalproex Sodium Sprinkles 125 MG CAP.DR.SPR 250 MG PO ×3 (09:08→20:46)
[2024-09-21 09:09] VITALS: BP 116/76
[2024-09-21] MEDS: amLODIPine Besylate 10 MG TABLET PO (09:09)
[2024-09-21] MEDS: levETIRAcetam 500 MG TABLET PO ×2 (09:10→20:47)
[2024-09-21] MEDS: Enoxaparin Sodium 30 MG/0.3 ML SYRINGE SUBCUT (09:14)
--- NOTE | 2024-09-21 10:37 | P.PNPSI_ITS ---
Subjective Subjective Date of Service: 09/21/24 Reason For Visit: adam Subjective Notes: Conditional Voluntary Interim History: The nursing staff reported the patient had been flat, cooperative medication compliant she slept 6 hours. The social work therapist reported the care home facility was contacted and their own a bed hold. On interview the patient looks pleasantly confused, no evidence of new seizures. We increased her Depakote up to 250 p.o. t.i.d.. Mental Status Exam Mental Status Exam Patient Appearance: Appropriate Patient Orientation: Person Level of Consciousness: Awake and Appropriate Patient Behavior: Guarded and Passive Mood Description: Withdrawn Affect Description: Constricted Patient Cognition Impaired: Yes Ability to Follow Directions: Good Speech Pattern: Clear Hallucinations: None Delusions: Paranoid Ideation and Ideas of Reference Thought Process: Distracted and Slowed Thinking Thought Content: positive for [place] and positive for Poverty of Content Judgement: Fair Diagnostics Vital Signs (24Hr): Vital Signs - 24 hr 09/20/24 20:00 09/21/24 08:00 09/21/24 09:09 Temperature 98 F 97.5 F Pulse Rate 95 98 Respiratory Rate 18 16 Blood Pressure 145/64 H 116/76 116/76 Pulse Oximetry 95 99 Oxygen Delivery Method Room Air Room Air BMI result Body Mass Index 19.4 Labs 09/16/24 08:48 Medications Medications Current Medications Acetaminophen (Acetaminophen 325 Mg Tablet) 650 mg PO Q6H PRN PRN Reason: Headache/Pain, Scale 1-10 Last Admin: 09/21/24 00:49 Dose: 650 mg Al Hydroxide/Mg Hydroxide (Magnesium Hydrox/Alum Hydrox 30 Ml Oral.Susp) 30 ml PO Q6H PRN PRN Reason: Heartburn/Nausea Amlodipine Besylate (Amlodipine Besylate 10 Mg Tablet) 10 mg PO DAILY [facility]; Protocol Last Admin: 09/21/24 09:09 Dose: 10 mg Artificial Tears (Artificial Tears 15 Ml Drops) 2 drop EYE-BOTH Q4H PRN PRN Reason: Dry Eyes Calcium Carbonate (Calcium Carbonate 750 Mg Tab.Chew) 750 mg PO Q4H PRN PRN Reason: Acid Reflux Divalproex Sodium (Divalproex Sodium Sprinkles 125 Mg ) 250 mg PO TID [facility] Last Admin: 09/21/24 09:08 Dose: 250 mg Docusate Sodium (Docusate Sodium 100 Mg Capsule) 100 mg PO DAILY PRN PRN Reason: Constipation Last Admin: 09/20/24 13:23 Dose: 100 mg Enoxaparin Sodium (Enoxaparin Sodium 30 Mg/0.3 Ml Syringe) 30 mg SUBCUT Q24H [facility] Last Admin: 09/21/24 09:14 Dose: 30 mg Famotidine (Famotidine 20 Mg Tablet) 20 mg PO DAILY@0630 [facility] Last Admin: 09/21/24 05:59 Dose: 20 mg Hydroxyzine HCl (Hydroxyzine Hcl 25 Mg Tablet) 25 mg PO Q6H PRN PRN Reason: mild anxiety Lactase (Lactase Tablet) 1 tab PO TIDWM [facility] Last Admin: 09/21/24 09:08 Dose: 1 tab Levetiracetam (Levetiracetam 500 Mg Tablet) 500 mg PO BID [facility] Last Admin: 09/21/24 09:10 Dose: 500 mg Lidocaine (Lidocaine 4 % Patch Adh..Patch) 1 patch TRANSDERMA DAILY PRN; Protocol PRN Reason: Pain, Mild (Pain Scale 1-3) Lorazepam (Lorazepam 2 Mg/Ml Vial) 1 mg IM Q6H PRN PRN Reason: Seizures Last Admin: 09/18/24 18:03 Dose: 1 mg Magnesium Hydroxide (Milk Of Magnesia 30 Ml Oral.Susp) 30 ml PO DAILY PRN PRN Reason: Constipation Last Admin: 09/20/24 13:23 Dose: 30 ml Melatonin (Melatonin 3 Mg Tablet) 6 mg PO DAILY PRN PRN Reason: Sleep Last Admin: 09/15/24 21:00 Dose: 6 mg Nicotine (Nicotine 14 Mg Patch.Td24) 14 mg TRANSDERMA DAILY [facility] Last Admin: 09/21/24 09:07 Dose: Not Given Quetiapine Fumarate (Quetiapine Fumarate 25 Mg Tablet) 25 mg PO BID PRN PRN Reason: agitation, aggression Last Admin: 09/17/24 19:37 Dose: 25 mg Ropinirole HCl (Ropinirole Hcl 1 Mg Tablet) 1 mg PO BEDTIME [facility] Last Admin: 09/20/24 21:09 Dose: 1 mg Trazodone HCl (Trazodone Hcl 50 Mg Tablet) 50 mg PO BEDTIME MRX1 PRN PRN Reason: Insomnia Last Admin: 09/17/24 19:36 Dose: 50 mg Vitamin D (Cholecalciferol (Vitamin D3) 25 Mcg Tablet) 125 mcg PO DAILY [facility] Last Admin: 09/21/24 09:07 Dose: 125 mcg Allergies Allergies Allergy/AdvReac Type Severity Reaction Status Date / Time No Known Allergies Allergy Verified 09/07/24 15:15 Assessment & Plan Assessment & Plan (1) Dementia: Status: Acute Code(s): F03.90 - Unspecified dementia, unspecified severity, without behavioral disturbance, psychotic disturbance, mood disturbance, and anxiety (2) Bipolar disorder: Status: Acute Code(s): F31.9 - Bipolar disorder, unspecified (3) Delirium: Status: Acute Code(s): R41.0 - Disorientation, unspecified Plan The patient is an elderly female with a past history of bipolar disorder who was initially admitted for manic symptoms and psychosis but later on she was transferred to Medicine after she became unresponsive. She was diagnosed with seizure disorder started on Keppra by Neurology. At this moment, the patient still have seizures at times with episodes of unresponsiveness postictal and still confused. Plan 1. Gather collateral information. 2. Keep her on 15 minute checks. 3. Continue with Keppra and Depakote as prescribed. 4. Continue with Zyprexa as mood stabilizer. Later on it was discontinue due to seizures. 5. Reassessment with results 6. Continue Keppra and follow-up by Neurology. 7. Depakote Sprinkles 250 p.o. t.i.d. blood work next Thursday. Reason for continued inpatient stay Substantial Risk for: inability to function, rapid decompensation and med/psych decompensation Time Spent With Patient Time: Total time managing care of this patient today __20__ minutes.
--- NOTE | 2024-09-21 15:45 | MHC.CLN ---
F/U DIET=REGULAR, CHOPPED WITH THIN LIQUIDS. ENSURE TID PROVIDES 1050 KCALS, 60 G PROTEIN. VARIABLE INTAKE AT MEALS 0-80%. LEAVES >50% MOST MEALS. CONTINUE CURRENT DIET AND SUPPLEMENT. ENCOURAGE PO ABLE.
[2024-09-21 20:00] VITALS: BP 118/63; PULSE 90; RESP 17; TEMP 36.6; O2SAT 97
[2024-09-21] MEDS: Melatonin 3 MG TABLET 6 MG PO (20:47)
[2024-09-21] MEDS: rOPINIRole HCL 1 MG TABLET PO (20:47)
[2024-09-21] MEDS: traZODone HCL 50 MG TABLET PO (20:47)
[2024-09-22] MEDS: Famotidine 20 MG TABLET PO (06:22)
[2024-09-22 08:00] VITALS: BP 126/68; PULSE 67; RESP 17; TEMP 36.1; O2SAT 96
[2024-09-22 08:33] VITALS: BP 126/68
[2024-09-22] MEDS: amLODIPine Besylate 10 MG TABLET PO (08:33)
[2024-09-22] MEDS: levETIRAcetam 500 MG TABLET PO ×2 (08:33→20:34)
[2024-09-22] MEDS: Enoxaparin Sodium 30 MG/0.3 ML SYRINGE SUBCUT (08:34)
[2024-09-22] MEDS: Divalproex Sodium Sprinkles 125 MG CAP.DR.SPR 250 MG PO ×3 (08:34→20:34)
[2024-09-22] MEDS: Lactase TABLET 1 TAB PO ×3 (08:34→17:10)
[2024-09-22] MEDS: Cholecalciferol (Vitamin D3) 25 MCG TABLET 125 MCG PO (08:34)
--- NOTE | 2024-09-22 11:05 | P.PNPSI_ITS ---
Subjective Subjective Date of Service: 09/22/24 Reason For Visit: adam Subjective Notes: Conditional Voluntary Interim History: The nursing staff reported the patient had been pleasant confused, fully compliant with treatment no evidence of seizures. On interview the patient reports that she is feeling fine. The clinical social worker reported that the medical malpractice paralegal of the facility would like to give an update. Mental Status Exam Mental Status Exam Patient Appearance: Well Grooomed and Appropriate Patient Orientation: Person and Situation Level of Consciousness: Awake and Appropriate Patient Behavior: Talkative and Restless Mood Description: Calm Affect Description: Constricted Patient Cognition Impaired: Yes Ability to Follow Directions: Good Speech Pattern: Clear Hallucinations: None Delusions: Ideas of Reference Thought Process: Distracted and Slowed Thinking Thought Content: positive for [place] and positive for Poverty of Content Judgement: Fair Diagnostics Vital Signs (24Hr): Vital Signs - 24 hr 09/21/24 20:00 09/22/24 08:00 09/22/24 08:33 Temperature 97.8 F 96.9 F Pulse Rate 90 67 Respiratory Rate 17 17 Blood Pressure 118/63 126/68 126/68 Pulse Oximetry 97 96 Oxygen Delivery Method Room Air Room Air BMI result Body Mass Index 19.4 Labs 09/16/24 08:48 Medications Medications Current Medications Acetaminophen (Acetaminophen 325 Mg Tablet) 650 mg PO Q6H PRN PRN Reason: Headache/Pain, Scale 1-10 Last Admin: 09/21/24 00:49 Dose: 650 mg Al Hydroxide/Mg Hydroxide (Magnesium Hydrox/Alum Hydrox 30 Ml Oral.Susp) 30 ml PO Q6H PRN PRN Reason: Heartburn/Nausea Amlodipine Besylate (Amlodipine Besylate 10 Mg Tablet) 10 mg PO DAILY [facility]; Protocol Last Admin: 09/22/24 08:33 Dose: 10 mg Artificial Tears (Artificial Tears 15 Ml Drops) 2 drop EYE-BOTH Q4H PRN PRN Reason: Dry Eyes Calcium Carbonate (Calcium Carbonate 750 Mg Tab.Chew) 750 mg PO Q4H PRN PRN Reason: Acid Reflux Divalproex Sodium (Divalproex Sodium Sprinkles 125 Mg Cap.) 250 mg PO TID [facility] Last Admin: 09/22/24 08:34 Dose: 250 mg Docusate Sodium (Docusate Sodium 100 Mg Capsule) 100 mg PO DAILY PRN PRN Reason: Constipation Last Admin: 09/20/24 13:23 Dose: 100 mg Enoxaparin Sodium (Enoxaparin Sodium 30 Mg/0.3 Ml Syringe) 30 mg SUBCUT Q24H [facility] Last Admin: 09/22/24 08:34 Dose: 30 mg Famotidine (Famotidine 20 Mg Tablet) 20 mg PO DAILY@0630 [facility] Last Admin: 09/22/24 06:22 Dose: 20 mg Hydroxyzine HCl (Hydroxyzine Hcl 25 Mg Tablet) 25 mg PO Q6H PRN PRN Reason: mild anxiety Lactase (Lactase Tablet) 1 tab PO TIDWM [facility] Last Admin: 09/22/24 08:34 Dose: 1 tab Levetiracetam (Levetiracetam 500 Mg Tablet) 500 mg PO BID [facility] Last Admin: 09/22/24 08:33 Dose: 500 mg Lidocaine (Lidocaine 4 % Patch Adh..Patch) 1 patch TRANSDERMA DAILY PRN; Protocol PRN Reason: Pain, Mild (Pain Scale 1-3) Lorazepam (Lorazepam 2 Mg/Ml Vial) 1 mg IM Q6H PRN PRN Reason: Seizures Last Admin: 09/18/24 18:03 Dose: 1 mg Magnesium Hydroxide (Milk Of Magnesia 30 Ml Oral.Susp) 30 ml PO DAILY PRN PRN Reason: Constipation Last Admin: 09/20/24 13:23 Dose: 30 ml Melatonin (Melatonin 3 Mg Tablet) 6 mg PO DAILY PRN PRN Reason: Sleep Last Admin: 09/21/24 20:47 Dose: 6 mg Nicotine (Nicotine 14 Mg Patch.Td24) 14 mg TRANSDERMA DAILY [facility] Last Admin: 09/22/24 08:33 Dose: Not Given Quetiapine Fumarate (Quetiapine Fumarate 25 Mg Tablet) 25 mg PO BID PRN PRN Reason: agitation, aggression Last Admin: 09/17/24 19:37 Dose: 25 mg Ropinirole HCl (Ropinirole Hcl 1 Mg Tablet) 1 mg PO BEDTIME [facility] Last Admin: 09/21/24 20:47 Dose: 1 mg Trazodone HCl (Trazodone Hcl 50 Mg Tablet) 50 mg PO BEDTIME MRX1 PRN PRN Reason: Insomnia Last Admin: 09/21/24 20:47 Dose: 50 mg Vitamin D (Cholecalciferol (Vitamin D3) 25 Mcg Tablet) 125 mcg PO DAILY [facility] Last Admin: 09/22/24 08:34 Dose: 125 mcg Allergies Allergies Allergy/AdvReac Type Severity Reaction Status Date / Time No Known Allergies Allergy Verified 09/07/24 15:15 Assessment & Plan Assessment & Plan (1) Dementia: Status: Acute Code(s): F03.90 - Unspecified dementia, unspecified severity, without behavioral disturbance, psychotic disturbance, mood disturbance, and anxiety (2) Bipolar disorder: Status: Acute Code(s): F31.9 - Bipolar disorder, unspecified (3) Delirium: Status: Acute Code(s): R41.0 - Disorientation, unspecified Plan The patient is an elderly female with a past history of bipolar disorder who was initially admitted for manic symptoms and psychosis but later on she was transferred to Medicine after she became unresponsive. She was diagnosed with seizure disorder started on Keppra by Neurology. At this moment, the patient still have seizures at times with episodes of unresponsiveness postictal and still confused. Plan 1. Gather collateral information. 2. Keep her on 15 minute checks. 3. Continue with Keppra and Depakote as prescribed. 4. Continue with Zyprexa as mood stabilizer. Later on it was discontinue due to seizures. 5. Reassessment with results 6. Continue Keppra and follow-up by Neurology. 7. Depakote Sprinkles 250 p.o. t.i.d. blood work next Thursday. Reason for continued inpatient stay Substantial Risk for: inability to function, rapid decompensation and med/psych decompensation Time Spent With Patient Time: Total time managing care of this patient today _20___ minutes.
[2024-09-22 13:27] VITALS: BMI 20.3
[2024-09-22] MEDS: Acetaminophen 325 MG TABLET 650 MG PO (14:41)
[2024-09-22 20:00] VITALS: BP 146/68; PULSE 83; RESP 16; TEMP 36.3; O2SAT 96
[2024-09-22] MEDS: rOPINIRole HCL 1 MG TABLET PO (20:34)
[2024-09-23] MEDS: Famotidine 20 MG TABLET PO (05:59)
[2024-09-23 08:00] VITALS: BP 135/68; PULSE 74; RESP 17; TEMP 36.7; O2SAT 97
[2024-09-23 08:36] LABS: Valproate 47.3 mcg/mL (50.0-100.0)
[2024-09-23] MEDS: Lactase TABLET 1 TAB PO ×2 (09:46→16:43)
[2024-09-23] MEDS: Cholecalciferol (Vitamin D3) 25 MCG TABLET 125 MCG PO (09:46)
[2024-09-23] MEDS: levETIRAcetam 500 MG TABLET PO ×2 (09:46→20:44)
[2024-09-23] MEDS: Enoxaparin Sodium 30 MG/0.3 ML SYRINGE SUBCUT (09:47)
[2024-09-23] MEDS: amLODIPine Besylate 10 MG TABLET PO (09:47)
--- NOTE | 2024-09-23 14:05 | MHC.CLN ---
F/U DIET=REGULAR, CHOPPED WITH THIN LIQUIDS. ENSURE TID PROVIDES 1050 KCALS, 60 G PROTEIN. VARIABLE INTAKE AT MEALS. CONTINUE CURRENT DIET AND SUPPLEMENT. RD TO FOLLOW WEEKLY.
--- NOTE | 2024-09-23 15:29 | HO.PSYCHPN ---
Subjective Subjective Date of Service: 09/23/24 Reason For Visit: adam Subjective Notes: Conditional Voluntary Interim History: The nursing staff reported the patient did not have more seizures, she had been social pleasant confused at times. The web content & social media manager reported that she tried to contact the senior living facility. 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 On interview the patient denies new symptoms looks slightly hypomanic. Her Depakote level came back subtherapeutic so we increased up to 250 mg p.o. b.i.d. and 500 mg p.o. q.h.s. Mental Status Exam Mental Status Exam Patient Appearance: Appropriate Patient Orientation: Person and Situation Level of Consciousness: Awake and Appropriate Patient Behavior: Guarded and Passive Mood Description: Calm, Euphoric and Happy Affect Description: Labile Patient Cognition Impaired: Yes Ability to Follow Directions: Good Hallucinations: None Delusions: Paranoid Ideation and Ideas of Reference Thought Process: Racing and Distracted Thought Content: positive for [place] and positive for Poverty of Content Judgement: Fair Diagnostics Vital Signs (24Hr): Vital Signs - 24 hr 09/22/24 20:00 09/23/24 08:00 Temperature 97.3 F 98.0 F Pulse Rate 83 74 Respiratory Rate 16 17 Blood Pressure 146/68 H 135/68 Pulse Oximetry 96 97 Oxygen Delivery Method Room Air Room Air BMI result Body Mass Index 20.3 Labs 09/16/24 08:48 Labs: Laboratory Results - last 48 hr 09/23/24 08:06 Valproic Acid 47.3 L Medications Medications Current Medications Acetaminophen (Acetaminophen 325 Mg Tablet) 650 mg PO Q6H PRN PRN Reason: Headache/Pain, Scale 1-10 Last Admin: 09/22/24 14:41 Dose: 650 mg Al Hydroxide/Mg Hydroxide (Magnesium Hydrox/Alum Hydrox 30 Ml Oral.Susp) 30 ml PO Q6H PRN PRN Reason: Heartburn/Nausea Amlodipine Besylate (Amlodipine Besylate 10 Mg Tablet) 10 mg PO DAILY [facility]; Protocol Last Admin: 09/23/24 09:47 Dose: 10 mg Artificial Tears (Artificial Tears 15 Ml Drops) 2 drop EYE-BOTH Q4H PRN PRN Reason: Dry Eyes Calcium Carbonate (Calcium Carbonate 750 Mg Tab.Chew) 750 mg PO Q4H PRN PRN Reason: Acid Reflux Divalproex Sodium (Divalproex Sodium Sprinkles 125 Mg ) 250 mg PO BID@0800,1700 [facility] Divalproex Sodium (Divalproex Sodium Sprinkles 125 Mg ) 500 mg PO BEDTIME [facility] Docusate Sodium (Docusate Sodium 100 Mg Capsule) 100 mg PO DAILY PRN PRN Reason: Constipation Last Admin: 09/20/24 13:23 Dose: 100 mg Enoxaparin Sodium (Enoxaparin Sodium 30 Mg/0.3 Ml Syringe) 30 mg SUBCUT Q24H [facility] Last Admin: 09/23/24 09:47 Dose: 30 mg Famotidine (Famotidine 20 Mg Tablet) 20 mg PO DAILY@0630 [facility] Last Admin: 09/23/24 05:59 Dose: 20 mg Hydroxyzine HCl (Hydroxyzine Hcl 25 Mg Tablet) 25 mg PO Q6H PRN PRN Reason: mild anxiety Lactase (Lactase Tablet) 1 tab PO TIDWM [facility] Last Admin: 09/23/24 12:27 Dose: Not Given Levetiracetam (Levetiracetam 500 Mg Tablet) 500 mg PO BID [facility] Last Admin: 09/23/24 09:46 Dose: 500 mg Lidocaine (Lidocaine 4 % Patch Adh..Patch) 1 patch TRANSDERMA DAILY PRN; Protocol PRN Reason: Pain, Mild (Pain Scale 1-3) Lorazepam (Lorazepam 2 Mg/Ml Vial) 1 mg IM Q6H PRN PRN Reason: Seizures Last Admin: 09/18/24 18:03 Dose: 1 mg Magnesium Hydroxide (Milk Of Magnesia 30 Ml Oral.Susp) 30 ml PO DAILY PRN PRN Reason: Constipation Last Admin: 09/20/24 13:23 Dose: 30 ml Melatonin (Melatonin 3 Mg Tablet) 6 mg PO DAILY PRN PRN Reason: Sleep Last Admin: 09/21/24 20:47 Dose: 6 mg Nicotine (Nicotine 14 Mg Patch.Td24) 14 mg TRANSDERMA DAILY [facility] Last Admin: 09/23/24 10:03 Dose: Not Given Quetiapine Fumarate (Quetiapine Fumarate 25 Mg Tablet) 25 mg PO BID PRN PRN Reason: agitation, aggression Last Admin: 09/17/24 19:37 Dose: 25 mg Ropinirole HCl (Ropinirole Hcl 1 Mg Tablet) 1 mg PO BEDTIME [facility] Last Admin: 09/22/24 20:34 Dose: 1 mg Trazodone HCl (Trazodone Hcl 50 Mg Tablet) 50 mg PO BEDTIME MRX1 PRN PRN Reason: Insomnia Last Admin: 09/21/24 20:47 Dose: 50 mg Vitamin D (Cholecalciferol (Vitamin D3) 25 Mcg Tablet) 125 mcg PO DAILY [facility] Last Admin: 09/23/24 09:46 Dose: 125 mcg Allergies Allergies Allergy/AdvReac Type Severity Reaction Status Date / Time No Known Allergies Allergy Verified 09/07/24 15:15 Assessment & Plan Assessment & Plan (1) Dementia: Status: Acute Code(s): F03.90 - Unspecified dementia, unspecified severity, without behavioral disturbance, psychotic disturbance, mood disturbance, and anxiety (2) Bipolar disorder: Status: Acute Code(s): F31.9 - Bipolar disorder, unspecified (3) Delirium: Status: Acute Code(s): R41.0 - Disorientation, unspecified Plan The patient is an elderly female with a past history of bipolar disorder who was initially admitted for manic symptoms and psychosis but later on she was transferred to Medicine after she became unresponsive. She was diagnosed with seizure disorder started on Keppra by Neurology. At this moment, the patient still have seizures at times with episodes of unresponsiveness postictal and still confused. Plan 1. Gather collateral information. 2. Keep her on 15 minute checks. 3. Continue with Keppra and Depakote as prescribed. 4. Continue with Zyprexa as mood stabilizer. Later on it was discontinue due to seizures. 5. Reassessment with results 6. Continue Keppra and follow-up by Neurology. 7. Depakote Sprinkles 250 p.o. t.i.d. blood work came on 09/23 subtherapeutic. We are increasing to Depakote 250 mg p.o. b.i.d. and 500 mg p.o. q.h.s.. Depakote level to be rechecked next Thursday. Reason for continued inpatient stay Substantial Risk for: inability to function, rapid decompensation and med/psych decompensation Time Spent With Patient Time: Total time managing care of this patient today __20__ minutes.
[2024-09-23] MEDS: Divalproex Sodium Sprinkles 125 MG CAP.DR.SPR 250 MG PO (16:43)
[2024-09-23 20:00] VITALS: BP 151/72; PULSE 85; RESP 17; TEMP 36.2; O2SAT 98
[2024-09-23] MEDS: Divalproex Sodium Sprinkles 125 MG CAP.DR.SPR 500 MG PO (20:43)
[2024-09-23] MEDS: rOPINIRole HCL 1 MG TABLET PO (20:44)
[2024-09-23] MEDS: Melatonin 3 MG TABLET 6 MG PO (20:44)
[2024-09-23] MEDS: traZODone HCL 50 MG TABLET PO (20:44)
[2024-09-24] MEDS: traZODone HCL 50 MG TABLET PO ×2 (01:43→21:33)
[2024-09-24] MEDS: Famotidine 20 MG TABLET PO (06:13)
[2024-09-24 08:00] VITALS: BP 146/66; PULSE 83; RESP 18; TEMP 36.3; O2SAT 94
[2024-09-24] MEDS: Enoxaparin Sodium 30 MG/0.3 ML SYRINGE SUBCUT (09:09)
[2024-09-24] MEDS: amLODIPine Besylate 10 MG TABLET PO (09:34)
[2024-09-24] MEDS: levETIRAcetam 500 MG TABLET PO ×2 (09:35→21:23)
[2024-09-24] MEDS: Cholecalciferol (Vitamin D3) 25 MCG TABLET 125 MCG PO (09:35)
[2024-09-24] MEDS: Lactase TABLET 1 TAB PO ×3 (09:37→17:02)
[2024-09-24] MEDS: Divalproex Sodium Sprinkles 125 MG CAP.DR.SPR 250 MG PO ×2 (09:37→17:02)
--- NOTE | 2024-09-24 16:50 | P.PNPSI_ITS ---
Subjective Subjective Date of Service: 09/24/24 Reason For Visit: adam Interim History: asking for pull-ups, says she is taking too many pills. otherwise no questions or complaints. per staff, confused. denies anx/dep. pleasant, easily engaged. Mental Status Exam Mental Status Exam Patient Appearance: Appropriate Patient Orientation: Person and Situation Level of Consciousness: Awake and Appropriate Patient Behavior: Guarded and Passive Mood Description: Calm, Euphoric and Happy Affect Description: Labile Patient Cognition Impaired: Yes Ability to Follow Directions: Good Hallucinations: None Delusions: Paranoid Ideation and Ideas of Reference Thought Process: Racing and Distracted Thought Content: positive for [place] and positive for Poverty of Content Judgement: Fair Diagnostics Vital Signs (24Hr): Vital Signs - 24 hr 09/23/24 20:00 09/24/24 08:00 Temperature 97.1 F 97.3 F Pulse Rate 85 83 Respiratory Rate 17 18 Blood Pressure 151/72 H 146/66 H Pulse Oximetry 98 94 Oxygen Delivery Method Room Air Room Air BMI result Body Mass Index 20.3 Labs 09/16/24 08:48 Labs: Laboratory Results - last 48 hr 09/23/24 08:06 Valproic Acid 47.3 L Medications Medications Current Medications Acetaminophen (Acetaminophen 325 Mg Tablet) 650 mg PO Q6H PRN PRN Reason: Headache/Pain, Scale 1-10 Last Admin: 09/22/24 14:41 Dose: 650 mg Al Hydroxide/Mg Hydroxide (Magnesium Hydrox/Alum Hydrox 30 Ml Oral.Susp) 30 ml PO Q6H PRN PRN Reason: Heartburn/Nausea Amlodipine Besylate (Amlodipine Besylate 10 Mg Tablet) 10 mg PO DAILY [facility]; Protocol Last Admin: 09/24/24 09:34 Dose: 10 mg Artificial Tears (Artificial Tears 15 Ml Drops) 2 drop EYE-BOTH Q4H PRN PRN Reason: Dry Eyes Calcium Carbonate (Calcium Carbonate 750 Mg Tab.Chew) 750 mg PO Q4H PRN PRN Reason: Acid Reflux Divalproex Sodium (Divalproex Sodium Sprinkles 125 Mg ) 250 mg PO BID@0800,1700 [facility] Last Admin: 09/24/24 09:37 Dose: 250 mg Divalproex Sodium (Divalproex Sodium Sprinkles 125 Mg ) 500 mg PO BEDTIME [facility] Last Admin: 09/23/24 20:43 Dose: 500 mg Docusate Sodium (Docusate Sodium 100 Mg Capsule) 100 mg PO DAILY PRN PRN Reason: Constipation Last Admin: 09/20/24 13:23 Dose: 100 mg Enoxaparin Sodium (Enoxaparin Sodium 30 Mg/0.3 Ml Syringe) 30 mg SUBCUT Q24H [facility] Last Admin: 09/24/24 09:09 Dose: 30 mg Famotidine (Famotidine 20 Mg Tablet) 20 mg PO DAILY@0630 [facility] Last Admin: 09/24/24 06:13 Dose: 20 mg Hydroxyzine HCl (Hydroxyzine Hcl 25 Mg Tablet) 25 mg PO Q6H PRN PRN Reason: mild anxiety Lactase (Lactase Tablet) 1 tab PO TIDWM [facility] Last Admin: 09/24/24 12:14 Dose: 1 tab Levetiracetam (Levetiracetam 500 Mg Tablet) 500 mg PO BID [facility] Last Admin: 09/24/24 09:35 Dose: 500 mg Lidocaine (Lidocaine 4 % Patch Adh..Patch) 1 patch TRANSDERMA DAILY PRN; Protocol PRN Reason: Pain, Mild (Pain Scale 1-3) Lorazepam (Lorazepam 2 Mg/Ml Vial) 1 mg IM Q6H PRN PRN Reason: Seizures Last Admin: 09/18/24 18:03 Dose: 1 mg Magnesium Hydroxide (Milk Of Magnesia 30 Ml Oral.Susp) 30 ml PO DAILY PRN PRN Reason: Constipation Last Admin: 09/20/24 13:23 Dose: 30 ml Melatonin (Melatonin 3 Mg Tablet) 6 mg PO DAILY PRN PRN Reason: Sleep Last Admin: 09/23/24 20:44 Dose: 6 mg Nicotine (Nicotine 14 Mg Patch.Td24) 14 mg TRANSDERMA DAILY [facility] Last Admin: 09/24/24 09:45 Dose: Not Given Quetiapine Fumarate (Quetiapine Fumarate 25 Mg Tablet) 25 mg PO BID PRN PRN Reason: agitation, aggression Last Admin: 09/17/24 19:37 Dose: 25 mg Ropinirole HCl (Ropinirole Hcl 1 Mg Tablet) 1 mg PO BEDTIME [facility] Last Admin: 09/23/24 20:44 Dose: 1 mg Trazodone HCl (Trazodone Hcl 50 Mg Tablet) 50 mg PO BEDTIME MRX1 PRN PRN Reason: Insomnia Last Admin: 09/24/24 01:43 Dose: 50 mg Vitamin D (Cholecalciferol (Vitamin D3) 25 Mcg Tablet) 125 mcg PO DAILY [facility] Last Admin: 09/24/24 09:35 Dose: 125 mcg Allergies Allergies Allergy/AdvReac Type Severity Reaction Status Date / Time No Known Allergies Allergy Verified 09/07/24 15:15 Assessment & Plan Assessment & Plan (1) Dementia: Status: Acute Code(s): F03.90 - Unspecified dementia, unspecified severity, without behavioral disturbance, psychotic disturbance, mood disturbance, and anxiety (2) Bipolar disorder: Status: Acute Code(s): F31.9 - Bipolar disorder, unspecified (3) Delirium: Status: Acute Code(s): R41.0 - Disorientation, unspecified Plan The patient is an elderly female with a past history of bipolar disorder who was initially admitted for manic symptoms and psychosis but later on she was transferred to Medicine after she became unresponsive. She was diagnosed with seizure disorder started on Keppra by Neurology. At this moment, the patient still have seizures at times with episodes of unresponsiveness postictal and still confused. Plan 1. Gather collateral information. 2. Keep her on 15 minute checks. 3. Continue with Keppra and Depakote as prescribed. 4. Continue with Zyprexa as mood stabilizer. Later on it was discontinue due to seizures. 5. Reassessment with results 6. Continue Keppra and follow-up by Neurology. 7. Depakote Sprinkles 250 p.o. t.i.d. blood work came on 09/23 subtherapeutic. We are increasing to Depakote 250 mg p.o. b.i.d. and 500 mg p.o. q.h.s.. Depakote level to be rechecked next Thursday. Reason for continued inpatient stay Substantial Risk for: inability to function Time Spent With Patient Time: Total time managing care of this patient today ____ minutes.
[2024-09-24 20:00] VITALS: BP 156/85; PULSE 87; RESP 18; TEMP 36.8; O2SAT 97
[2024-09-24] MEDS: rOPINIRole HCL 1 MG TABLET PO (21:23)
[2024-09-25] MEDS: Famotidine 20 MG TABLET PO (06:07)
[2024-09-25 08:00] VITALS: BP 138/63; PULSE 90; RESP 18; TEMP 36.2; O2SAT 99
[2024-09-25] MEDS: levETIRAcetam 500 MG TABLET PO ×2 (09:36→20:43)
[2024-09-25] MEDS: Lactase TABLET 1 TAB PO ×3 (09:36→17:24)
[2024-09-25] MEDS: Divalproex Sodium Sprinkles 125 MG CAP.DR.SPR 250 MG PO (09:36)
[2024-09-25] MEDS: amLODIPine Besylate 10 MG TABLET PO (09:36)
[2024-09-25] MEDS: Enoxaparin Sodium 30 MG/0.3 ML SYRINGE SUBCUT (09:37)
[2024-09-25] MEDS: Cholecalciferol (Vitamin D3) 25 MCG TABLET 125 MCG PO (09:37)
--- NOTE | 2024-09-25 12:47 | HO.PSYCHPN ---
Subjective Subjective Date of Service: 09/25/24 Reason For Visit: adam Interim History: slight, somewhat irritable/oppositional. demands benton patch and VPA be DCed. MD agrees to DC benton patch but directs pt to discuss VPA with team tomorrow. per staff, feeling VPA is too much, preventing her from sleeping. refused VPA last NOC. Mental Status Exam Mental Status Exam Patient Appearance: Appropriate Patient Orientation: Person and Situation Level of Consciousness: Awake and Appropriate Patient Behavior: Guarded and Passive Mood Description: Suspicious and Angry Affect Description: Labile Patient Cognition Impaired: Yes Ability to Follow Directions: Good Hallucinations: None Delusions: Paranoid Ideation and Ideas of Reference Thought Process: Racing and Distracted Thought Content: positive for [place] and positive for Poverty of Content Judgement: Fair Diagnostics Vital Signs (24Hr): Vital Signs - 24 hr 09/24/24 20:00 09/25/24 08:00 Temperature 98.2 F 97.1 F Pulse Rate 87 90 Respiratory Rate 18 18 Blood Pressure 156/85 H 138/63 Pulse Oximetry 97 99 Oxygen Delivery Method Room Air Room Air BMI result Body Mass Index 20.3 Labs 09/16/24 08:48 Medications Medications Current Medications Acetaminophen (Acetaminophen 325 Mg Tablet) 650 mg PO Q6H PRN PRN Reason: Headache/Pain, Scale 1-10 Last Admin: 09/22/24 14:41 Dose: 650 mg Al Hydroxide/Mg Hydroxide (Magnesium Hydrox/Alum Hydrox 30 Ml Oral.Susp) 30 ml PO Q6H PRN PRN Reason: Heartburn/Nausea Amlodipine Besylate (Amlodipine Besylate 10 Mg Tablet) 10 mg PO DAILY [facility]; Protocol Last Admin: 09/25/24 09:36 Dose: 10 mg Artificial Tears (Artificial Tears 15 Ml Drops) 2 drop EYE-BOTH Q4H PRN PRN Reason: Dry Eyes Calcium Carbonate (Calcium Carbonate 750 Mg Tab.Chew) 750 mg PO Q4H PRN PRN Reason: Acid Reflux Divalproex Sodium (Divalproex Sodium Sprinkles 125 Mg ) 250 mg PO BID@0800,1700 [facility] Last Admin: 09/25/24 09:36 Dose: 250 mg Divalproex Sodium (Divalproex Sodium Sprinkles 125 Mg ) 500 mg PO BEDTIME [facility] Last Admin: 09/24/24 21:25 Dose: Not Given Docusate Sodium (Docusate Sodium 100 Mg Capsule) 100 mg PO DAILY PRN PRN Reason: Constipation Last Admin: 09/20/24 13:23 Dose: 100 mg Enoxaparin Sodium (Enoxaparin Sodium 30 Mg/0.3 Ml Syringe) 30 mg SUBCUT Q24H [facility] Last Admin: 09/25/24 09:37 Dose: 30 mg Famotidine (Famotidine 20 Mg Tablet) 20 mg PO DAILY@0630 [facility] Last Admin: 09/25/24 06:07 Dose: 20 mg Hydroxyzine HCl (Hydroxyzine Hcl 25 Mg Tablet) 25 mg PO Q6H PRN PRN Reason: mild anxiety Lactase (Lactase Tablet) 1 tab PO TIDWM [facility] Last Admin: 09/25/24 12:18 Dose: 1 tab Levetiracetam (Levetiracetam 500 Mg Tablet) 500 mg PO BID [facility] Last Admin: 09/25/24 09:36 Dose: 500 mg Lidocaine (Lidocaine 4 % Patch Adh..Patch) 1 patch TRANSDERMA DAILY PRN; Protocol PRN Reason: Pain, Mild (Pain Scale 1-3) Lorazepam (Lorazepam 2 Mg/Ml Vial) 1 mg IM Q6H PRN PRN Reason: Seizures Last Admin: 09/18/24 18:03 Dose: 1 mg Magnesium Hydroxide (Milk Of Magnesia 30 Ml Oral.Susp) 30 ml PO DAILY PRN PRN Reason: Constipation Last Admin: 09/20/24 13:23 Dose: 30 ml Melatonin (Melatonin 3 Mg Tablet) 6 mg PO DAILY PRN PRN Reason: Sleep Last Admin: 09/23/24 20:44 Dose: 6 mg Nicotine (Nicotine 14 Mg Patch.Td24) 14 mg TRANSDERMA DAILY PRN PRN Reason: nicotine cravings or withdrawal Quetiapine Fumarate (Quetiapine Fumarate 25 Mg Tablet) 25 mg PO BID PRN PRN Reason: agitation, aggression Last Admin: 09/17/24 19:37 Dose: 25 mg Ropinirole HCl (Ropinirole Hcl 1 Mg Tablet) 1 mg PO BEDTIME [facility] Last Admin: 09/24/24 21:23 Dose: 1 mg Trazodone HCl (Trazodone Hcl 50 Mg Tablet) 50 mg PO BEDTIME MRX1 PRN PRN Reason: Insomnia Last Admin: 09/24/24 21:33 Dose: 50 mg Vitamin D (Cholecalciferol (Vitamin D3) 25 Mcg Tablet) 125 mcg PO DAILY [facility] Last Admin: 09/25/24 09:37 Dose: 125 mcg Allergies Allergies Allergy/AdvReac Type Severity Reaction Status Date / Time No Known Allergies Allergy Verified 09/07/24 15:15 Assessment & Plan Assessment & Plan (1) Dementia: Status: Acute Code(s): F03.90 - Unspecified dementia, unspecified severity, without behavioral disturbance, psychotic disturbance, mood disturbance, and anxiety (2) Bipolar disorder: Status: Acute Code(s): F31.9 - Bipolar disorder, unspecified (3) Delirium: Status: Acute Code(s): R41.0 - Disorientation, unspecified Plan The patient is an elderly female with a past history of bipolar disorder who was initially admitted for manic symptoms and psychosis but later on she was transferred to Medicine after she became unresponsive. She was diagnosed with seizure disorder started on Keppra by Neurology. At this moment, the patient still have seizures at times with episodes of unresponsiveness postictal and still confused. Plan 1. Gather collateral information. 2. Keep her on 15 minute checks. 3. Continue with Keppra and Depakote as prescribed. 4. Continue with Zyprexa as mood stabilizer. Later on it was discontinue due to seizures. 5. Reassessment with results 6. Continue Keppra and follow-up by Neurology. 7. Depakote Sprinkles 250 p.o. t.i.d. blood work came on 09/23 subtherapeutic. We are increasing to Depakote 250 mg p.o. b.i.d. and 500 mg p.o. q.h.s.. Depakote level to be rechecked next Thursday. /: pt refused VPA last night, demanding it be DCed. MD referred pt to speak with primary team tomorrow on the subject. pt also demanding benton patch be DCed, changed to PRN. continue current mgmt otherwise. less pleasant today, a bit more irritable. Reason for continued inpatient stay Substantial Risk for: inability to function Time Spent With Patient Time: Total time managing care of this patient today ____ minutes.
[2024-09-25 19:49] VITALS: BP 131/78; PULSE 84; RESP 16; TEMP 36.2; O2SAT 97
[2024-09-25] MEDS: rOPINIRole HCL 1 MG TABLET PO (20:43)
[2024-09-25] MEDS: Melatonin 3 MG TABLET 6 MG PO (20:43)
[2024-09-26] MEDS: hydrOXYzine HCL 25 MG TABLET PO ×2 (01:48→20:44)
[2024-09-26] MEDS: Famotidine 20 MG TABLET PO (05:58)
[2024-09-26 08:00] VITALS: BP 142/71; PULSE 68; RESP 16; TEMP 35.8; O2SAT 95
[2024-09-26] MEDS: Cholecalciferol (Vitamin D3) 25 MCG TABLET 125 MCG PO (08:41)
[2024-09-26] MEDS: Lactase TABLET 1 TAB PO ×3 (08:41→18:00)
[2024-09-26] MEDS: Enoxaparin Sodium 30 MG/0.3 ML SYRINGE SUBCUT (08:41)
[2024-09-26] MEDS: amLODIPine Besylate 10 MG TABLET PO (08:41)
[2024-09-26] MEDS: Divalproex Sodium Sprinkles 125 MG CAP.DR.SPR 250 MG PO ×2 (08:41→18:00)
[2024-09-26] MEDS: levETIRAcetam 500 MG TABLET PO ×2 (08:52→20:44)
--- NOTE | 2024-09-26 11:26 | P.PNPSI_ITS ---
Subjective Subjective Date of Service: 09/26/24 Reason For Visit: adam Subjective Notes: Conditional Voluntary Interim History: The nursing staff reported the patient refused her Depakote at night. No evidence of more seizures. On interview the patient denies new symptoms pleasantly confused easily redirectable. Mental Status Exam Mental Status Exam Patient Appearance: Appropriate Patient Orientation: Person Level of Consciousness: Awake and Appropriate Patient Behavior: Guarded and Passive Mood Description: Withdrawn Affect Description: Blunted Patient Cognition Impaired: Yes Ability to Follow Directions: Good Speech Pattern: Clear Hallucinations: None Delusions: Paranoid Ideation and Ideas of Reference Thought Process: Distracted and Slowed Thinking Thought Content: positive for [place] and positive for Poverty of Content Judgement: Fair Diagnostics Vital Signs (24Hr): Vital Signs - 24 hr 09/25/24 19:49 Temperature 97.2 F Pulse Rate 84 Respiratory Rate 16 Blood Pressure 131/78 Pulse Oximetry 97 Oxygen Delivery Method Room Air BMI result Body Mass Index 20.3 Labs 09/16/24 08:48 Medications Medications Current Medications Acetaminophen (Acetaminophen 325 Mg Tablet) 650 mg PO Q6H PRN PRN Reason: Headache/Pain, Scale 1-10 Last Admin: 09/22/24 14:41 Dose: 650 mg Al Hydroxide/Mg Hydroxide (Magnesium Hydrox/Alum Hydrox 30 Ml Oral.Susp) 30 ml PO Q6H PRN PRN Reason: Heartburn/Nausea Amlodipine Besylate (Amlodipine Besylate 10 Mg Tablet) 10 mg PO DAILY [facility]; Protocol Last Admin: 09/26/24 08:41 Dose: 10 mg Artificial Tears (Artificial Tears 15 Ml Drops) 2 drop EYE-BOTH Q4H PRN PRN Reason: Dry Eyes Calcium Carbonate (Calcium Carbonate 750 Mg Tab.Chew) 750 mg PO Q4H PRN PRN Reason: Acid Reflux Divalproex Sodium (Divalproex Sodium Sprinkles 125 Mg Spr) 250 mg PO BID@0800,1700 [facility] Last Admin: 09/26/24 08:41 Dose: 250 mg Divalproex Sodium (Divalproex Sodium Sprinkles 125 Mg Spr) 500 mg PO BEDTIME [facility] Last Admin: 09/25/24 20:49 Dose: Not Given Docusate Sodium (Docusate Sodium 100 Mg Capsule) 100 mg PO DAILY PRN PRN Reason: Constipation Last Admin: 09/20/24 13:23 Dose: 100 mg Enoxaparin Sodium (Enoxaparin Sodium 30 Mg/0.3 Ml Syringe) 30 mg SUBCUT Q24H [facility] Last Admin: 09/26/24 08:41 Dose: 30 mg Famotidine (Famotidine 20 Mg Tablet) 20 mg PO DAILY@0630 [facility] Last Admin: 09/26/24 05:58 Dose: 20 mg Hydroxyzine HCl (Hydroxyzine Hcl 25 Mg Tablet) 25 mg PO Q6H PRN PRN Reason: mild anxiety Last Admin: 09/26/24 01:48 Dose: 25 mg Lactase (Lactase Tablet) 1 tab PO TIDWM [facility] Last Admin: 09/26/24 08:41 Dose: 1 tab Levetiracetam (Levetiracetam 500 Mg Tablet) 500 mg PO BID [facility] Last Admin: 09/26/24 08:52 Dose: 500 mg Lidocaine (Lidocaine 4 % Patch Adh..Patch) 1 patch TRANSDERMA DAILY PRN; Protocol PRN Reason: Pain, Mild (Pain Scale 1-3) Lorazepam (Lorazepam 2 Mg/Ml Vial) 1 mg IM Q6H PRN PRN Reason: Seizures Last Admin: 09/18/24 18:03 Dose: 1 mg Magnesium Hydroxide (Milk Of Magnesia 30 Ml Oral.Susp) 30 ml PO DAILY PRN PRN Reason: Constipation Last Admin: 09/20/24 13:23 Dose: 30 ml Melatonin (Melatonin 3 Mg Tablet) 6 mg PO DAILY PRN PRN Reason: Sleep Last Admin: 09/25/24 20:43 Dose: 6 mg Nicotine (Nicotine 14 Mg Patch.Td24) 14 mg TRANSDERMA DAILY PRN PRN Reason: nicotine cravings or withdrawal Quetiapine Fumarate (Quetiapine Fumarate 25 Mg Tablet) 25 mg PO BID PRN PRN Reason: agitation, aggression Last Admin: 09/17/24 19:37 Dose: 25 mg Ropinirole HCl (Ropinirole Hcl 1 Mg Tablet) 1 mg PO BEDTIME [facility] Last Admin: 09/25/24 20:43 Dose: 1 mg Trazodone HCl (Trazodone Hcl 50 Mg Tablet) 50 mg PO BEDTIME MRX1 PRN PRN Reason: Insomnia Last Admin: 09/24/24 21:33 Dose: 50 mg Vitamin D (Cholecalciferol (Vitamin D3) 25 Mcg Tablet) 125 mcg PO DAILY [facility] Last Admin: 09/26/24 08:41 Dose: 125 mcg Allergies Allergies Allergy/AdvReac Type Severity Reaction Status Date / Time No Known Allergies Allergy Verified 09/07/24 15:15 Assessment & Plan Assessment & Plan (1) Dementia: Status: Acute Code(s): F03.90 - Unspecified dementia, unspecified severity, without behavioral disturbance, psychotic disturbance, mood disturbance, and anxiety (2) Bipolar disorder: Status: Acute Code(s): F31.9 - Bipolar disorder, unspecified (3) Delirium: Status: Acute Code(s): R41.0 - Disorientation, unspecified Plan The patient is an elderly female with a past history of bipolar disorder who was initially admitted for manic symptoms and psychosis but later on she was transferred to Medicine after she became unresponsive. She was diagnosed with seizure disorder started on Keppra by Neurology. At this moment, the patient still have seizures at times with episodes of unresponsiveness postictal and still confused. Plan 1. Gather collateral information. 2. Keep her on 15 minute checks. 3. Continue with Keppra and Depakote as prescribed. 4. Continue with Zyprexa as mood stabilizer. Later on it was discontinue due to seizures. 5. Reassessment with results 6. Continue Keppra and follow-up by Neurology. 7. Depakote Sprinkles 250 p.o. t.i.d. blood work came on 09/23 subtherapeutic. We are increasing to Depakote 250 mg p.o. b.i.d. and 500 mg p.o. q.h.s.. Depakote level to be rechecked next Thursday but we are going to discontinue it since the patient had been noncompliant for 2 days in a row. Reason for continued inpatient stay Substantial Risk for: inability to function, rapid decompensation and med/psych decompensation Time Spent With Patient Time: Total time managing care of this patient today _20___ minutes.
--- NOTE | 2024-09-26 16:05 | PM.PSYDC ---
DS: Providers Provider Date of Service: 09/26/24 Date of admission: 09/15/24 12:55 Date of discharge: 09/27/24 Primary care physician: Unknown Physician DS: Diagnosis Discharge Diagnosis (1) Dementia: Status: Acute (2) Bipolar disorder: Status: Acute (3) Delirium: Status: Acute DS: Medications Discharge Medications Home Medications: Home Medications ?Medication ?Instructions ?Recorded ?Confirmed acetaminophen 325 mg tablet 650 mg PO Q6H PRN Pain 09/15/24 09/15/24 calcium carbonate (Tums E-X) 750 mg PO Q4H PRN Acid Reflux 09/15/24 09/15/24 cholecalciferol (vitamin D3) 125 125 mcg PO DAILY 09/15/24 09/15/24 mcg (5,000 unit) tablet (Vitamin D3) enoxaparin 40 mg/0.4 mL 40 mg subcut Q24H 09/15/24 09/15/24 subcutaneous syringe lidocaine 4 % topical patch 1 patch topical DAILY PRN Pain 09/15/24 09/15/24 lorazepam 0.5 mg tablet 0.5 mg PO Q8H 09/15/24 09/15/24 magnesium hydroxide 400 mg/5 mL 30 ml PO DAILY PRN Constipation 09/15/24 09/15/24 oral suspension (Milk of Magnesia) melatonin 3 mg tablet 6 mg PO DAILY PRN Sleep 09/15/24 09/15/24 Previous Rx's ?Medication ?Instructions ?Recorded amlodipine 10 mg tablet 10 mg PO DAILY #0 tabs 09/11/24 divalproex 250 mg tablet,delayed 250 mg PO BEDTIME #0 tabs 09/11/24 release docusate sodium 100 mg capsule 100 mg PO DAILY PRN Constipation 09/11/24 #0 caps famotidine 20 mg tablet 20 mg PO DAILY@0630 #0 tabs 09/11/24 lactase 3,000 unit tablet 3,000 unit PO TIDWM #0 tabs 09/11/24 (Dairy-Aid) quetiapine 25 mg tablet 25 mg PO BID PRN agitation, 09/11/24 aggression #0 tabs ropinirole 1 mg tablet 1 mg PO BEDTIME #0 tabs 09/11/24 levetiracetam 250 mg tablet 250 mg PO BID #0 tabs 09/15/24 nicotine 14 mg/24 hr daily 14 mg transdermal DAILY #0 ea 09/15/24 transdermal patch peg [id number] 1 2 drp ophthalmic (eye) Q4H PRN Dry 09/15/24 %-0.2 %-0.2 % eye drops Eyes #0 mL (Artificial Tears ([id number])) acetaminophen 325 mg tablet 650 mg (2 x 325 mg) PO Q6H PRN 09/26/24 Headache/Pain, Scale 1-10 30 days #60 tabs amlodipine 10 mg tablet 10 mg PO DAILY 30 days #30 tabs 09/26/24 calcium carbonate (Antacid Ext Str 2.5 tab PO Q4H PRN Acid Reflux 30 09/26/24 (calcium carb)) days #90 tabs cholecalciferol (vitamin D3) 25 125 mcg (5 x 25 mcg (1,000 unit)) 09/26/24 mcg (1,000 unit) tablet PO DAILY 30 days #150 tabs divalproex 125 mg capsule,delayed 250 mg (2 x 125 mg) PO 09/26/24 release sprinkle BID@0800,1700 30 days #120 caps divalproex 125 mg capsule,delayed 500 mg (4 x 125 mg) PO BEDTIME 30 09/26/24 release sprinkle days #120 caps docusate sodium 100 mg capsule 100 mg PO DAILY PRN Constipation 09/26/24 30 days #30 caps enoxaparin 30 mg/0.3 mL 30 mg (0.3 mL) subcut Q24H 30 days 09/26/24 subcutaneous syringe #9 mL famotidine 20 mg tablet 20 mg PO DAILY@0630 30 days #30 09/26/24 tabs lactase 3,000 unit tablet 1 unit (0.0003 x 3,000 unit) PO 09/26/24 (Dairy-Aid) TIDWM 30 days #30 tabs levetiracetam 500 mg tablet 500 mg PO BID 30 days #60 tabs 09/26/24 lidocaine 4 % topical patch 1 patch transdermal DAILY PRN 09/26/24 (Lidocaine Pain Relief) Pain, Mild (Pain Scale 1-3) 30 days #30 ea melatonin 3 mg tablet 6 mg (2 x 3 mg) PO DAILY PRN Sleep 09/26/24 30 days #60 tabs peg [id number] 1 2 drp ophthalmic (eye) Q4H PRN Dry 09/26/24 %-0.2 %-0.2 % eye drops Eyes 30 days #5 mL (Artificial Tears ([id number])) ropinirole 1 mg tablet 1 mg PO BEDTIME 30 days #30 tabs 09/26/24 trazodone 50 mg tablet 50 mg PO BEDTIME MRX1 PRN Insomnia 09/26/24 30 days #30 tabs Mental Status Exam Mental Status Exam Patient Appearance: Appropriate Patient Orientation: Person and Situation Level of Consciousness: Awake and Appropriate Patient Behavior: Guarded and Passive Mood Description: Withdrawn Affect Description: Constricted Patient Cognition Impaired: Yes Ability to Follow Directions: Good Speech Pattern: Clear Hallucinations: None Delusions: Ideas of Reference Thought Process: Distracted and Slowed Thinking Thought Content: positive for [place], positive for Poverty of Content and positive for Thought Blocking Judgement: Fair Data Data Completed and Pending Completed studies during hospitalization [Text1]: 09/23/24 08:06 Valproic Acid 47.3 L DS: Summary Hospital Course Hospital Course: The patient is an 89-year-old female with a past history of bipolar disorder who was transferred to this facility due to psychotic decompensation. Please see the HPI of the admission note for further details. On the intake the patient was grossly manic, with flight of ideas disorganized thought process and psychosis. She was initially treated with Zyprexa but later on the patient had an episode of unresponsiveness and a code was called. She was transferred to Medicine twice in a gap of 3 days and she was fully medically workout. Neurology was involved and she was diagnosed with absence seizures. She was started on Keppra. She was transferred back to our unit and we decided to discontinue the Zyprexa since it could worsen her seizure threshold. We decided to titrate up Depakote up to 250 mg p.o. b.i.d. and 500 mg p.o. q.h.s. with a therapeutic level. The goal was to achieve mood stabilization and anticonvulsive and affect. With the combination of Depakote and Keppra the patient was free of seizures. The patient at baseline is very demented cooperative and pleasant and her mood was brighter with no evidence of adam with the increase of Depakote. We had several family meetings and the family agreed that the patient could be transferred to prison facility. Since there were no safety concerns discharge planning was discussed. Time spent discussing smoking cessation with patient: 3 to 10 minutes Status at Discharge Cognitive/behavioral status at discharge: Impaired at baseline Functional status at discharge: independent ambulation Overall status at discharge: patient is back to baseline Time Spent with Patient Time attestation: Total time managing care of this patient today _30___ minutes. Time spent: Less than 30 minutes Discharge Plan Discharge Anticipated Discharge Date/Time: 09/27/24 11:00 Patient Disposition: Xfer SNF Discharge Diagnosis: Bipolar disorder Dementia Seizure disorder Referrals: Physician,Unknown J [Primary Care Provider] - 1 Week Discharge Medications: New acetaminophen 325 mg Tablet 650 mg PO Q6H PRN (Reason: Headache/Pain, Scale 1-10) 30 Days Qty: 60 0RF ropinirole 1 mg Tablet 1 mg PO BEDTIME 30 Days Qty: 30 0RF trazodone 50 mg Tablet 50 mg PO BEDTIME MRX1 PRN (Reason: Insomnia) 30 Days Qty: 30 0RF levetiracetam 500 mg Tablet 500 mg PO BID 30 Days Qty: 60 0RF Antacid Ext Str (calcium carb) 300 mg (750 mg) Tablet,Chewable 2.5 tab PO Q4H PRN (Reason: Acid Reflux) 30 Days Qty: 90 0RF famotidine 20 mg Tablet 20 mg PO DAILY@0630 30 Days Qty: 30 0RF amlodipine 10 mg Tablet 10 mg PO DAILY 30 Days Qty: 30 0RF Protocol: Hold for SBP< HOLD for SBP < : 90 lactase [Dairy-Aid] 3,000 unit Tablet 1 unit PO TIDWM 30 Days Qty: 30 0RF docusate sodium 100 mg Capsule 100 mg PO DAILY PRN (Reason: Constipation) 30 Days Qty: 30 0RF divalproex 125 mg Capsule, Delayed Rel Sprinkle 500 mg PO BEDTIME 30 Days Qty: 120 0RF divalproex 125 mg Capsule, Delayed Rel Sprinkle 250 mg PO BID@0800,1700 30 Days Qty: 120 0RF enoxaparin 30 mg/0.3 mL Syringe 30 mg subcut Q24H 30 Days Qty: 9 0RF Artificial Tears([id number]) 1-0.2-0.2 % Drops 2 drp ophthalmic (eye) Q4H PRN (Reason: Dry Eyes) 30 Days Qty: 5 0RF lidocaine [Lidocaine Pain Relief] 4 % Adhesive Patch,Medicated 1 patch transdermal DAILY PRN (Reason: Pain, Mild (Pain Scale 1-3)) 30 Days Qty: 30 0RF Protocol: Apply to: Apply to: back melatonin 3 mg Tablet 6 mg PO DAILY PRN (Reason: Sleep) 30 Days Qty: 60 0RF cholecalciferol (vitamin D3) 25 mcg (1,000 unit) Tablet 125 mcg PO DAILY 30 Days Qty: 150 0RF Discontinued quetiapine 25 mg Tablet 25 mg PO BID PRN (Reason: agitation, aggression) Qty: 0 0RF ropinirole 1 mg Tablet 1 mg PO BEDTIME Qty: 0 0RF divalproex 250 mg Tablet,Delayed Release (Dr/Ec) 250 mg PO BEDTIME Qty: 0 0RF famotidine 20 mg Tablet 20 mg PO DAILY@0630 Qty: 0 0RF amlodipine 10 mg Tablet 10 mg PO DAILY Qty: 0 0RF Protocol: Hold for SBP< HOLD for SBP < : 90 lactase [Dairy-Aid] 3,000 unit Tablet 3,000 unit PO TIDWM Qty: 0 0RF docusate sodium 100 mg Capsule 100 mg PO DAILY PRN (Reason: Constipation) Qty: 0 0RF nicotine 14 mg/24 hr Patch 24 Hour 14 mg transdermal DAILY Qty: 0 0RF levetiracetam 250 mg Tablet 250 mg PO BID Qty: 0 0RF Artificial Tears([id number]) 1-0.2-0.2 % Drops 2 drp ophthalmic (eye) Q4H PRN (Reason: Dry Eyes) Qty: 0 0RF acetaminophen 325 mg Tablet 650 mg PO Q6H PRN (Reason: Pain) Tums E-X 300 mg (750 mg) Tablet,Chewable 750 mg PO Q4H PRN (Reason: Acid Reflux) enoxaparin 40 mg/0.4 mL Syringe 40 mg SUBCUT Q24H lidocaine 4 % Adhesive Patch,Medicated 1 patch TOPICAL DAILY PRN (Reason: Pain) melatonin 3 mg Tablet 6 mg PO DAILY PRN (Reason: Sleep) magnesium hydroxide [Milk of Magnesia] 400 mg/5 mL Suspension 30 ml PO DAILY PRN (Reason: Constipation) cholecalciferol (vitamin D3) [Vitamin D3] 125 mcg (5,000 unit) Tablet 125 mcg PO DAILY lorazepam 0.5 mg tablet 0.5 mg PO Q8H Discharge Orders: Discharge Order (Routine); Ordered 09/27/24 Ordered By: Wil Amin Diet: Advance to usual diet Activity on Discharge: As tolerated Stand Alone Forms: Patient Portal Discharge page Print Language: Haitian Care Plan Goals: Care plan goals achieved in this admission Health Concerns: Continue treatment by outpatient providers Plan of Treatment: Continue medication management with psychiatric providers. Assessment: The patient is an elderly female with a history of dementia, bipolar disorder and now new onset of seizure disorder well controlled with Keppra and Depakote. At this moment the basilar ready to be transferred back to prison facility.
[2024-09-26 19:51] VITALS: BP 153/78; PULSE 87; RESP 18; TEMP 36.7; O2SAT 100
[2024-09-26] MEDS: Divalproex Sodium Sprinkles 125 MG CAP.DR.SPR 500 MG PO (20:44)
[2024-09-26] MEDS: Melatonin 3 MG TABLET 6 MG PO (20:44)
[2024-09-26] MEDS: rOPINIRole HCL 1 MG TABLET PO (20:44)
[2024-09-27] MEDS: traZODone HCL 50 MG TABLET PO (02:08)
[2024-09-27] MEDS: Famotidine 20 MG TABLET PO (06:04)
[2024-09-27 07:55] VITALS: BP 144/73; PULSE 75; RESP 18; TEMP 36.6; O2SAT 97
[2024-09-27] MEDS: Cholecalciferol (Vitamin D3) 25 MCG TABLET 125 MCG PO (08:26)
[2024-09-27] MEDS: Enoxaparin Sodium 30 MG/0.3 ML SYRINGE SUBCUT (08:27)
[2024-09-27] MEDS: amLODIPine Besylate 10 MG TABLET PO (08:27)
[2024-09-27] MEDS: levETIRAcetam 500 MG TABLET PO (08:27)
[2024-09-27] MEDS: Lactase TABLET 1 TAB PO (08:27)
== END 2024-09-27 11:50 | disposition skilled nursing facility (03) | DRG 885 ==
PROVIDERS: Student in an Organized Health Care Education/Training Program; Admitting Provider Internal Medicine; Visit Provider Psychiatry & Neurology Psychiatry
DX: F31.9 Bipolar disorder, unspecified (principal); F03.90 Unspecified dementia, unspecified severity, without behavioral disturbance, psychotic disturbance, mood disturbance, and anxiety; G25.81 Restless legs syndrome; G40.909 Epilepsy, unspecified, not intractable, without status epilepticus; Z87.891 Personal history of nicotine dependence; Z79.899 Other long term (current) drug therapy
CPT/HCPCS: 36415; 80048; 80053; 80061; 80164; 82947; 94799; J1650; J2060

== ENCOUNTER → 2024-09-15 12:55 | Outpatient (BNV) | payer MEDICARE, MEDICAID, SELFPAY | PROVIDERS: Admitting Provider Internal Medicine; Visit Provider Psychiatry & Neurology Psychiatry | DX: F03.90 Unspecified dementia, unspecified severity, without behavioral disturbance, psychotic disturbance, mood disturbance, and anxiety (principal); F31.9 Bipolar disorder, unspecified; R41.0 Disorientation, unspecified | CPT/HCPCS: 90792; 99232 ==